=== PATIENT | female | born 1970 | race Caucasian/White ===

== ENCOUNTER 2021-06-04 22:05 | Emergency (ER) | payer OTHER ==
[2021-06-04 23:06] LABS: Absolute Lymphocytes (CBC) 2.2 K/uL (0.7-4.9); Basophils % 1.2 % (0-1.3); Hematocrit 35.9 % (36.0-45.0); Lymphocytes % 34.2 % (15.3-44.8); MPV 9.6 fL (7.6-11.3); RBC Red Blood Cell Count 4.45 M/uL (3.86-4.86)
[2021-06-05] LABS: Anisocytosis 1+; Blood Morphology Comment NOTED (NOT SEEN); Ovalocytes 1+; Platelet Estimate ADEQ; White Blood Cell Scan OK (OK)
[2021-06-05 00:03] LABS: ALT/SGPT 29 U/L (12-78); Albumin 3.8 g/dL (3.4-5.0); Alkaline Phosphatase 94 U/L (45-117); BUN Blood Urea Nitrogen 7 mg/dL (7-18); Bicarbonate 29 mmol/L (21-32); Bilirubin Direct < 0.1 mg/dL (0-0.2); Bilirubin Total 0.3 mg/dL (0.2-1.0); Glucose Level 106 mg/dL (74-106); NT PRO-BNP 12 pg/mL (<125); Protein, Total 8.2 g/dL (6.4-8.2); Sodium Level 140 mmol/L (136-145); Troponin (Emerg Dept Use Only) < 0.02 ng/mL (0.0-0.045)
[2021-06-05 00:06] LABS: AST/SGOT 38 U/L (15-37); Magnesium 2.2 mg/dL (1.8-2.4); Potassium 3.8 mmol/L (3.5-5.1)
--- NOTE | 2021-06-05 00:11 | EDPHYS ---
Physician Documentation [facility] Name: Keesha Pedroza Age: 51 yrs Sex: Female : 1970 Arrival Date: 06/04/2021 Time: 22:11 Bed 4 Private MD: ED Physician Bob Harding HPI: 06/04 23:07 This 51 yrs old Female presents to ER via Ambulatory with complaints of Chest kb Congestion, Dizziness, Vomiting. 23:07 The patient or guardian reports cough, that is intermittent, described as moderate. kb Onset: The symptoms/episode began/occurred 1 week(s) ago. Severity of symptoms: At their worst the symptoms were moderate, in the emergency department the symptoms are unchanged. Modifying factors: The symptoms are alleviated by nothing, the symptoms are aggravated by nothing. Associated signs and symptoms: Pertinent positives: chest pain. The patient has not experienced similar symptoms in the past. The patient has not recently seen a physician. Pt reports cough, congestion, fever, "ribcage pain" and chest pressure for a week. States she just got insurance so that is why she came in now. States she is waiting to get established with a dr in [place] for primary care. States she has asthma and has been out of her nebulizer solution. Also reports she has been out of levothyroxine for a while and requests that. Pt is prescribed 200mcg daily.. 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 - Social history:: Smoking status: Patient reports the use of cigarette tobacco products, smokes one-half pack cigarettes per day, Patient/guardian denies using alcohol, street drugs. ROS: 23:06 Constitutional: Negative for fever, chills, and weight loss. kb 23:06 Cardiovascular: Positive for chest pain, Negative for edema, orthopnea, palpitations, paroxysmal nocturnal dyspnea. 23:06 Respiratory: Positive for cough, Negative for dyspnea on exertion, hemoptysis, orthopnea, pleurisy, shortness of breath, sputum production, wheezing. 23:06 Abdomen/GI: Positive for vomiting. 23:06 All other systems are negative. Exam: 22:56 ECG was reviewed by the Attending Physician. kb 23:06 Constitutional: This is a well developed, well nourished patient who is awake, alert, kb and in no acute distress. Head/Face: Normocephalic, atraumatic. ENT: Moist Mucous membranes Cardiovascular: Regular rate and rhythm with a normal S1 and S2. No gallops, murmurs, or rubs. No pulse deficits. Respiratory: Respirations even and unlabored. No increased work of breathing, no retractions or nasal flaring. Abdomen/GI: Soft, non-tender. No distention Skin: Warm, dry with normal turgor. Normal color. MS/ Extremity: Pulses equal, no cyanosis. Neurovascular intact. Full, normal range of motion. Neuro: Awake and alert, GCS 15, oriented to person, place, time, and situation. Moves all extremities. Normal gait. Psych: Awake, alert, with orientation to person, place and time. Behavior, mood, and affect are within normal limits. Vital Signs: 22:41 BP 148 / 86; Pulse 66; Resp 18 S; Temp 98.1(O); Pulse Ox 97% on R/A; Weight 104.33 kg bb (R); Height 5 ft. 7 in. (170.18 cm) (R); Pain 7/10; 06/05 00:42 BP 118 / 79; Pulse 78; Resp 18 S; Temp 98.3; Pulse Ox 98% on R/A; Pain 1/10; sj1 06/04 22:41 Body Mass Index 36.02 (104.33 kg, 170.18 cm) bb MDM: 06/04 22:34 Patient medically screened. kb 23:06 Data reviewed: vital signs, nurses notes. Data interpreted: Pulse oximetry: on room air kb is 97 %. Interpretation: normal. 06/05 00:10 Counseling: I had a detailed discussion with the patient and/or guardian regarding: the kb historical points, exam findings, and any diagnostic results supporting the discharge/admit diagnosis, lab results, radiology results, the need for outpatient follow up, a family practitioner, to return to the emergency department if symptoms worsen or persist or if there are any questions or concerns that arise at home. 06/04 22:39 Order name: Basic Metabolic Panel; Complete Time: 00:21 kb 06/04 22:39 Order name: CBC with Diff; Complete Time: 00:00 kb 06/04 22:39 Order name: LFT's; Complete Time: 00:21 kb 06/04 22:39 Order name: Magnesium; Complete Time: 00:21 kb 06/04 22:39 Order name: NT PRO-BNP; Complete Time: 00:21 kb 06/04 22:39 Order name: PT-INR; Complete Time: 23:11 kb 06/04 22:39 Order name: Troponin (emerg Dept Use Only); Complete Time: 00:21 kb 06/04 22:39 Order name: XRAY Chest (1 view) kb 06/04 22:39 Order name: TSH; Complete Time: 00:21 kb 06/04 22:59 Order name: SARS-COV-2 RT PCR; Complete Time: 00:02 EDMS 06/04 23:10 Order name: CBC Smear Scan; Complete Time: 00:00 EDMS 06/05 00:13 Order name: T4 Free; Complete Time: 00:21 EDMS 06/04 22:39 Order name: EKG; Complete Time: 22:40 kb 06/04 22:39 Order name: Cardiac monitoring; Complete Time: 22:58 kb 06/04 22:39 Order name: EKG - Nurse/Tech; Complete Time: 22:58 kb 06/04 22:39 Order name: IV Saline Lock; Complete Time: 22:55 kb 06/04 22:39 Order name: Labs collected and sent; Complete Time: 22:55 kb 06/04 22:39 Order name: O2 Per Protocol; Complete Time: 22:55 kb 06/04 22:39 Order name: O2 Sat Monitoring; Complete Time: 22:55 kb EC/22 22:56 Rate is 57 beats/min. Rhythm is regular. QRS [place] is Normal. GA interval is normal at kb 194 msec. QRS interval is normal at 88 msec. QT interval is normal at 440 msec. Administered Medications: 06/05 00:40 Drug: Albuterol 2.5 mg Route: Inhalation; sj1 00:40 Drug: AtroVENT (ipratropium) Aerosol 0.5 mg Route: Inhalation; sj1 Disposition: 06:51 Co-signature as Attending Physician, Bob Harding MD. [email or web address] Disposition Summary: 06/05/21 00:10 Discharge Ordered Location: Home kb Condition: Stable kb Diagnosis - Coronavirus infection, unspecified kb - Hypothyroidism, unspecified kb Followup: kb - With: Emergency Department - When: As needed - Reason: Worsening of condition Followup: kb - With: Private Physician - When: 2 - 3 days - Reason: Recheck today's complaints, Continuance of care, Re-evaluation by your physician Discharge Instructions: - Discharge Summary Sheet kb - Hypothyroidism kb - COVID-19 kb - COVID-19 Frequently Asked Questions kb - 10 Things You Can Do to Manage Your COVID-19 Symptoms at Home - [facility] kb Forms: - Medication Reconciliation Form kb - Thank You Letter kb - Antibiotic Education kb - Prescription Opioid Use kb Prescriptions: - levothyroxine 200 mcg Oral tablet - take 1 tablet by ORAL route once daily on an empty stomach 30 minutes before kb breakfast; 20 tablet; Refills: 0, Product Selection Permitted - Albuterol Sulfate 2.5 mg /3 mL (0.083 %) Inhalation Solution for Nebulization - inhale 1 unit by NEBULIZATION route every 8 hours As needed; 1 box; Refills: 0, kb Product Selection Permitted Signatures: Dispatcher [employer] EDKacey Nuñez, PAPO RODRIGUEZP-Guillermina Todd, RN RN bb Bob Harding MD MD mh7 Maryan Garvin RN RN sj1 Corrections: (The following items were deleted from the chart) 06/04 22:59 22:40 CORONAVIRUS+LAB.BRZ ordered. EDFL EDFL
--- NOTE | 2021-06-05 00:11 | ER ---
Nurse's Notes [facility] Name: Keesha Pedroza Age: 51 yrs Sex: Female : 1970 Arrival Date: 06/04/2021 Time: 22:11 Bed 4 Private MD: Diagnosis: Coronavirus infection, unspecified;Hypothyroidism, unspecified Presentation: 06/04 22:41 Chief complaint: Patient states: she has been having a cough and congestion with bb vomiting x 1 week also has rib cage pain and chest pressure says she has not been taking her medication lately as she did not have insurance but has recently had it reinstated. Coronavirus screen: congestion, cough unrelated to allergies, Client presents with at least one sign or symptom that may indicate coronavirus-19. Standard/surgical mask placed on the client. Ebola Screen: No symptoms or risks identified at this time. Initial Sepsis Screen: Does the patient meet any 2 criteria? No. Patient's initial sepsis screen is negative. Does the patient have a suspected source of infection? No. Patient's initial sepsis screen is negative. Risk Assessment: Do you want to hurt yourself or someone else? Patient reports no desire to harm self or others. Onset of symptoms was May 2021. 22:41 Method Of Arrival: Ambulatory bb 22:41 Acuity: MARY 3 bb Triage Assessment: 22:56 General: Appears in no apparent distress. Behavior is calm, cooperative. 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 - Social history:: Smoking status: Patient reports the use of cigarette tobacco products, smokes one-half pack cigarettes per day, Patient/guardian denies using alcohol, street drugs. Screenin:55 Abuse screen: Denies threats or abuse. Nutritional screening: No deficits noted. df1 Tuberculosis screening: No symptoms or risk factors identified. Fall Risk None identified. Assessment: 22:59 Pain:. GI: Abdomen is flat. sj1 23:00 GI: Abdomen is Reports upper abdominal pain, nausea, vomiting. sj1 23:00 General: Appears in no apparent distress. Behavior is calm, cooperative, appropriate sj1 for age. Pain: Complains of pain in abdomen Quality of pain is described as sharp. Neuro: Level of Consciousness is awake, alert, obeys commands, Oriented to person, place, time, situation. Cardiovascular: No deficits noted. Rhythm is sinus rhythm. Respiratory: Reports cough that is productive. : No signs and/or symptoms were reported regarding the genitourinary system. EENT: No signs and/or symptoms were reported regarding the EENT system. Derm: No signs and/or symptoms reported regarding the dermatologic system. Musculoskeletal: Reports pain in ribs. 06/05 00:41 Reassessment: No changes from previously documented assessment. Per provider - ok to sj1 give albuterol/atrovent to pt to take home due to pt being covid +. Vital Signs: 06/04 22:41 BP 148 / 86; Pulse 66; Resp 18 S; Temp 98.1(O); Pulse Ox 97% on R/A; Weight 104.33 kg bb (R); Height 5 ft. 7 in. (170.18 cm) (R); Pain 7/10; 06/05 00:42 BP 118 / 79; Pulse 78; Resp 18 S; Temp 98.3; Pulse Ox 98% on R/A; Pain 1/10; sj1 06/04 22:41 Body Mass Index 36.02 (104.33 kg, 170.18 cm) bb ED Course: 06/04 22:11 Patient arrived in ED. cf2 22:34 Kacey Rojas FNP-C is [facility]. kb 22:34 Bob Harding MD is Attending Physician. kb 22:44 Triage completed. bb 22:44 Arm band placed on Patient placed in an exam room, on a stretcher, on pulse oximetry. bb Family accompanied patient. 22:55 XRAY Chest (1 view) Sent. df1 22:55 No provider procedures requiring assistance completed. df1 22:56 Patient has correct armband on for positive identification. Placed in gown. Bed in low df1 position. Call light in reach. Side rails up X 1. 22:58 TSH Sent. sj1 22:58 Troponin (emerg Dept Use Only) Sent. sj1 22:58 PT-INR Sent. sj1 22:58 NT PRO-BNP Sent. sj1 22:59 Magnesium Sent. sj1 22:59 LFT's Sent. sj1 22:59 CBC with Diff Sent. sj1 22:59 Basic Metabolic Panel Sent. sj1 23:44 XRAY Chest (1 view) In Process Unspecified. EDMS 06/05 00:41 IV discontinued, intact, bleeding controlled, No redness/swelling at site. sj1 Administered Medications: 00:40 Drug: Albuterol 2.5 mg Route: Inhalation; sj1 00:40 Drug: AtroVENT (ipratropium) Aerosol 0.5 mg Route: Inhalation; sj1 Outcome: 00:10 Discharge ordered by . nia 00:41 Discharged to home ambulatory. sj1 00:41 Condition: stable 00:41 Discharge instructions given to patient, Instructed on discharge instructions, follow up and referral plans. medication usage, Demonstrated understanding of instructions, follow-up care, medications, Prescriptions given X 2. 00:43 Patient left the ED. 1 Signatures: Dispatcher [employer] EDMS Kacey Rojas, TABULATING MACHINE MECHANIC-C TABULATING MACHINE MECHANIC-Guillermina Todd, RN RN bb Lynsey Wing cf2 Hope Johnson df1 Maryan Garvin, RN RN sj1 Corrections: (The following items were deleted from the chart) 06/04 22:59 22:58 CORONAVIRUS+ drawn and sent. [facility] EDMS
[2021-06-05] MEDS ORDERED: IPRATROPIUM BROM 0.5MG/2.5ML ONE (00:58)
[2021-06-05] MEDS ORDERED: ALBUTEROL 2.5 MG/3 ML NEB SOL ONE (00:58)
[2021-06-05 01:17] VITALS: BP 118/79; TEMP 98.3; O2SAT 98
--- NOTE | 2021-06-05 09:17 | RAD REPORT ---
EXAM DESCRIPTION: RAD - Chest Single View - 06/04/2021 11:44 pm CLINICAL HISTORY: COUGH COMPARISON: CHEST PA AND LAT 2 VIEW dated 10/26/2014; CHEST SINGLE VIEW dated 07/08/2014; CHEST PA AN D LAT 2 VIEW dated 10/28/2013 FINDINGS: Lines: None. Lungs: No evidence of edema or pneumonia. Calcified lung nodules. Pleural: No significant pleural effusions or pneumothorax. Cardiac: The heart size is within normal limits. Bones: No acute fractures. Other: IMPRESSION: No acute cardiopulmonary disease.
== END 2021-06-05 00:43 | disposition home or self-care (01) ==
LOC: ER 22:05
DX: U07.1 COVID-19 (principal); E03.9 Hypothyroidism, unspecified
CPT/HCPCS: 93005; 85025; 80048; 36415; 83735; 85610; 80076; 84443; 84484; 84439; 83880; 71045; 99285; U0003

== ENCOUNTER 2022-05-01 18:17 | Emergency (ER) | payer OTHER ==
--- OUTSIDE RECORDS SUMMARY | 2022-05-01 18:21 | XMS REPORT | Continuity of Care Document ---
:[address] [facility] t Address [address] [place] [address] Care Team Providers Name Role Phone Es Palma MD Primary Care Physician [phone] Es Palma MD Attending Clinician Clive Brown MD Attending Clinician DEJA GARAY Attending Clinician Unavailable ES PALMA Attending Clinician Unavailable Deja Carbajal Attending Clinician Payers Payer Name Policy Type Policy Number Effective Date Expiration Date S ource Problems Condition Condition Condition Status Onset Resolution Last Treating Co mments Source Name Details Category Date Date Treatment Clinician Date Obesity Obesity Disease Active 2020-08 Univers (BMI (BMI 2-29 ity of 30-39.9) 30-39.9) 00:00: [address] Branch Dysuria Dysuria Disease Active 2020-08 Univers 2-29 ity of 00:00: [address] Branch Screening Screening Disease Active 2020-08 Uni vers examinatio examinatio - it y of n for STD n for STD 00:00: [place] (sexually (sexually 00 Medi amado transmitte transmitte Br anch d disease) d disease) Encounter Encounter Disease Active 2020-08 Uni vers for for 2-29 ity of surveillan surveillan [place] of 00 Medical other other Branch contracept contracept sukhwinder sukhwinder Irregular Irregular Disease Active 2020-08 Uni vers menstrual menstrual 2- ity of cycle cycle 00:00: [place] 00 Medical Branch Vitamin D Vitamin D Disease Active 2020-08 Uni vers deficiency deficiency 1-06 it y of 00:00: [place] 00 Medical Branch B12 B12 Disease Active 2020-08 Univers deficiency deficiency -06 it y of (suboptima (suboptima [place] l level 00 Medical <400) <400) Branch Iron Iron Disease Active 2020-08 Univers deficiency deficiency -06 it y of anemia, anemia, 00:00: [place] unspecifie unspecifie 00 Me dical d iron d iron Branch deficiency deficiency anemia anemia type type Hyperchole Hyperchole Disease Active 2020-08 U nivers sterolemia sterolemia -06 it y of 00:00: [place] 00 Medical Branch Abnormal Abnormal Disease Active 2020-08 Unive rs liver liver 08-19 ity of function function 00:00: [place] test test 00 Medical Branch Acquired Acquired Disease Active 2020-08 Overview: Un yasmeen hypothyroi hypothyroi 05 Formattin ity of dism dism 00:00: g of this [place] 00 note Medical might be Branch different from the original. 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 No seizures since 2019 Menorrhagi Menorrhagi Disease Active 2020-08 U nivers a a 1-05 ity of 00:00: [place] 00 Medical Branch Tobacco Tobacco Disease Active 2020-08 Univers dependence dependence -05 it y of 00:00: [place] 00 Medical Branch COVID-19 COVID-19 Disease Active 2020-08 Unive rs 0-01 ity of 00:00: [place] 00 Medical [place] Allergies, Adverse Reactions, Alerts Allergy Allergy Status Severity Reaction(s) Onset Inactive Treating Comm ents Source Name Type Date Date Clinician NO KNOWN Drug Active Univers ALLERGIE Class ity of S [facility] Social History Social Habit Start Date Stop Date Quantity Comments Source Exposure to Not sure [facility] SARS-CoV-2 [place] [facility] (event) Branch Alcohol intake 2021-08-11 2021-08-11 [facility] 00:00:00 (finding) [facility] Tobacco use and 2021-06-18 2021-06-18 Never used Universit y of exposure 00:00:00 00:00:00 [facility] [birth year] Universit y of 00:00:00 00:00:00 [facility] Smoking Status Start Date Stop Date Source Current every day smoker 2021-06-18 00:00:00 Uni versity of [facility] Medications Ordered Filled Start Stop Current Ordering Indication Dosage Frequency Signature Comments Components Source Medication Medication Date Date Medication? Clinician (SIG) Name Name VENTOLIN Yes [id number] INHALE 2 Univers HFA 90 4-07 [id number] PUFFS BY ity of mcg/actuati 00:00: MOUTH [place] on inhaler 00 EVERY 6 Medica l HOURS Branch NEEDED FOR WHEEZING OR SHORTNESS OF BREATHE. VENTOLIN Yes [id number] INHALE 2 Univers HFA 90 4-07 [id number] PUFFS BY ity of mcg/actuati 00:00: MOUTH [place] on inhaler 00 EVERY 6 Medica l HOURS Branch NEEDED FOR WHEEZING OR SHORTNESS OF BREATHE. VENTOLIN Yes [id number] INHALE 2 Univers HFA 90 4-07 [id number] PUFFS BY ity of mcg/actuati 00:00: MOUTH [place] on inhaler 00 EVERY 6 Medica l HOURS Branch NEEDED FOR WHEEZING OR SHORTNESS OF BREATHE. VENTOLIN Yes [id number] INHALE 2 Univers HFA 90 4-07 [id number] PUFFS BY ity of mcg/actuati 00:00: MOUTH [place] on inhaler 00 EVERY 6 Medica l HOURS Branch NEEDED FOR WHEEZING OR SHORTNESS OF BREATHE. ALBUTEROL Yes [id number] USE 3 ML Univers 2.5 mg /3 4-05 [id number] VIA ity of mL (0.083 00:00: NEBULIZER [place] %) 00 FOUR TIMES Medical nebulizer DAILY Branch solution ALBUTEROL Yes [id number] USE 3 ML Univers 2.5 mg /3 4-05 [id number] VIA ity of mL (0.083 00:00: NEBULIZER [place] %) 00 FOUR TIMES Medical nebulizer DAILY Branch solution ALBUTEROL Yes [id number] USE 3 ML Univers 2.5 mg /3 - [id number] VIA ity of mL (0.083 00:00: NEBULIZER [place] %) 00 FOUR TIMES Medical nebulizer DAILY Branch solution ALBUTEROL Yes [id number] USE 3 ML Univers 2.5 mg /3 11-16 [id number] VIA ity of mL (0.083 00:00: NEBULIZER [place] %) 00 FOUR TIMES Medical nebulizer DAILY Branch solution ALBUTEROL Yes [id number] USE 3 ML Univers 2.5 mg /3 11-16 [id number] VIA ity of mL (0.083 00:00: NEBULIZER [place] %) 00 FOUR TIMES Medical nebulizer DAILY Branch solution VENTOLIN Yes [id number] INHALE 2 Univers HFA 90 - [id number] PUFFS BY ity of mcg/actuati 00:00: MOUTH [place] on inhaler 00 EVERY 6 Medica l HOURS Branch NEEDED FOR WHEEZING OR SHORTNESS OF BREATHE. VENTOLIN Yes [id number] INHALE 2 Univers HFA 90 - [id number] PUFFS BY ity of mcg/actuati 00:00: MOUTH [place] on inhaler 00 EVERY 6 Medica l HOURS Branch NEEDED FOR WHEEZING OR SHORTNESS OF BREATHE. VENTOLIN 2021- No [id number] INHALE 2 Univers HFA 90 - 04-07 [id number] PUFFS BY ity of mcg/actuati 00:00: 00:00 M[place]TH [place] inhaler 00 :00 EVERY 6 Medica l HOURS Branch NEEDED FOR WHEEZING OR SHORTNESS OF BREATHE. ALBUTEROL Yes [id number] USE 3 ML Univers 2.5 mg /3 08-26 [id number] VIA ity of mL (0.083 00:00: NEBULIZER [place] %) 00 FOUR TIMES Medical nebulizer DAILY Branch solution ALBUTEROL Yes [id number] USE 3 ML Univers 2.5 mg /3 08-26 [id number] VIA ity of mL (0.083 00:00: NEBULIZER [place] %) 00 FOUR TIMES Medical nebulizer DAILY Branch solution ALBUTEROL 2021- No [id number] USE 3 ML Univers 2.5 mg /3 08-26-05 [id number] VIA ity of mL (0.083 00:00: 00:00 NE[place]ULIZER [place] 00 :00 FOUR TIMES Medical nebulizer DAILY Branch solution Cholecalcif 2020-08 Yes [id number] 1999U Take 1 Univers cassie, 1-06 capsule by ity of Vitamin D3, 00:00: mouth [place] (D3-1999) 00 daily. Medical 50 mcg Take with Branch (2,000 food. unit) capsule vitamin 2020-08 Yes [id number] 500ug Take 1 Un yasmeen B-12 1-06 tablet by ity of (VITAMIN 00:00: mouth [place] B-12) 500 00 daily. Medical mcg tablet Branch rosuvastati 2020-08 Yes [id number] 10mg Take 1 Univ ers n 10 mg 1-06 tablet by ity of tablet 00:00: mouth at [place] 00 bedtime. Medical Indication Branch s: high cholestero l Ferrous 2020-08 Yes 713 1{tbl} Take 1 Univer s Fumarate 1-06 tablet by ity of 324 mg (106 00:00: mouth [place] mg iron) 00 daily. Medical Tab Take with Branch a source of vitamin C. Indication s: anemia from inadequate iron Cholecalcif 2020-08 Yes [id number] 1999U Take 1 Univers cassie, 1-06 capsule by ity of Vitamin D3, 00:00: mouth [place] (D3-1999) 00 daily. Medical 50 mcg Take with Branch (2,000 food. unit) capsule vitamin 2020-08 Yes [id number] 500ug Take 1 Un yasmeen B-12 1-06 tablet by ity of (VITAMIN 00:00: mouth [place] B-12) 500 00 daily. Medical mcg tablet Branch rosuvastati 2020-08 Yes 626 10mg Take 1 Univ ers n 10 mg 1-06 tablet by ity of tablet 00:00: mouth at [place] 00 bedtime. Medical Indication Branch s: high cholestero l Ferrous 2020-08 Yes 713 1{tbl} Take 1 Univer s Fumarate 1-06 tablet by ity of 324 mg (106 00:00: mouth [place] mg iron) 00 daily. Medical Tab Take with Branch a source of vitamin C. Indication s: anemia from inadequate iron Cholecalcif 2020-08 Yes [id number] 1999U Take 1 Univers cassie, 1-06 capsule by ity of Vitamin D3, 00:00: mouth [place] (D3-1999) 00 daily. Medical 50 mcg Take with Branch (2,000 food. unit) capsule vitamin 2020-08 Yes [id number] 500ug Take 1 Un yasmeen B-12 1-06 tablet by ity of (VITAMIN 00:00: mouth [place] B-12) 500 00 daily. Medical mcg tablet Branch rosuvastati 2020-08 Yes 626 10mg Take 1 Univ ers n 10 mg 1-06 tablet by ity of tablet 00:00: mouth at [place] 00 bedtime. Medical Indication Branch s: high cholestero l Ferrous 2020-08 Yes 713 1{tbl} Take 1 Univer s Fumarate 1-06 tablet by ity of 324 mg (106 00:00: mouth [place] mg iron) 00 daily. Medical Tab Take with Branch a source of vitamin C. Indication s: anemia from inadequate iron Cholecalcif 2020-08 Yes [id number] 1999U Take 1 Univers cassie, 1-06 capsule by ity of Vitamin D3, 00:00: mouth [place] (D3-1999) 00 daily. Medical 50 mcg Take with Branch (2,000 food. unit) capsule vitamin 2020-08 Yes [id number] 500ug Take 1 Un yasmeen B-12 1-06 tablet by ity of (VITAMIN 00:00: mouth [place] B-12) 500 00 daily. Medical mcg tablet Branch rosuvastati 2020-08 Yes 626 10mg Take 1 Univ ers n 10 mg 1-06 tablet by ity of tablet 00:00: mouth at [place] 00 bedtime. Medical Indication Branch s: high cholestero l Ferrous 2020-08 Yes 713 1{tbl} Take 1 Univer s Fumarate 1-06 tablet by ity of 324 mg (106 00:00: mouth [place] mg iron) 00 daily. Medical Tab Take with Branch a source of vitamin C. Indication s: anemia from inadequate iron Cholecalcif 2020-08 Yes [id number] 2000U Take 1 Univers cassie, 1-06 capsule by ity of Vitamin D3, 00:00: mouth [place] (D3-1999) 00 daily. Medical 50 mcg Take with Branch (2,000 food. unit) capsule vitamin 2020-08 Yes [id number] 500ug Take 1 Un yasmeen B-12 1-06 tablet by ity of (VITAMIN 00:00: mouth [place] B-12) 500 00 daily. Medical mcg tablet Branch rosuvastati 2020-08 Yes 626 10mg Take 1 Univ ers n 10 mg 1-06 tablet by ity of tablet 00:00: mouth at [place] 00 bedtime. Medical Indication Branch s: high cholestero l Ferrous 2020-08 Yes 713 1{tbl} Take 1 Univer s Fumarate 1-06 tablet by ity of 324 mg (106 00:00: mouth [place] mg iron) 00 daily. Medical Tab Take with Branch a source of vitamin C. Indication s: anemia from inadequate iron Cholecalcif 2020-08 Yes [id number] 1999U Take 1 Univers cassie, 1-06 capsule by ity of Vitamin D3, 00:00: mouth [place] (D3-1999) 00 daily. Medical 50 mcg Take with Branch (2,000 food. unit) capsule vitamin 2020-08 Yes [id number] 500ug Take 1 Un yasmeen B-12 1-06 tablet by ity of (VITAMIN 00:00: mouth [place] B-12) 500 00 daily. Medical mcg tablet Branch rosuvastati 2020-08 Yes 626 10mg Take 1 Univ ers n 10 mg 1-06 tablet by ity of tablet 00:00: mouth at [place] 00 bedtime. Medical Indication Branch s: high cholestero l Ferrous 2020-08 Yes 713 1{tbl} Take 1 Univer s Fumarate 1-06 tablet by ity of 324 mg (106 00:00: mouth [place] mg iron) 00 daily. Medical Tab Take with Branch a source of vitamin C. Indication s: anemia from inadequate iron Cholecalcif 2020-08 Yes [id number] 1999U Take 1 Univers cassie, 1-06 capsule by ity of Vitamin D3, 00:00: mouth [place] (D3-2000) 00 daily. Medical 50 mcg Take with Branch (2,000 food. unit) capsule vitamin 2020-08 Yes [id number] 500ug Take 1 Un yasmeen B-12 1-06 tablet by ity of (VITAMIN 00:00: mouth [place] B-12) 500 00 daily. Medical mcg tablet Branch rosuvastati 2020-08 Yes 626 10mg Take 1 Univ ers n 10 mg 1-06 tablet by ity of tablet 00:00: mouth at [place] 00 bedtime. Medical Indication Branch s: high cholestero l Ferrous 2020-08 Yes 713 1{tbl} Take 1 Univer s Fumarate 1-06 tablet by ity of 324 mg (106 00:00: mouth [place] mg iron) 00 daily. Medical Tab Take with Branch a source of vitamin C. Indication s: anemia from inadequate iron Cholecalcif 2020-08 Yes [id number] 1999U Take 1 Univers cassie, 1-06 capsule by ity of Vitamin D3, 00:00: mouth [place] (D3-2000) 00 daily. Medical 50 mcg Take with Branch (2,000 food. unit) capsule vitamin 2020-08 Yes [id number] 500ug Take 1 Un yasmeen B-12 1-06 tablet by ity of (VITAMIN 00:00: mouth [place] B-12) 500 00 daily. Medical mcg tablet Branch rosuvastati 2020-08 Yes 626 10mg Take 1 Univ ers n 10 mg 1-06 tablet by ity of tablet 00:00: mouth at [place] 00 bedtime. Medical Indication Branch s: high cholestero l Ferrous 2020-08 Yes 713 1{tbl} Take 1 Univer s Fumarate 1-06 tablet by ity of 324 mg (106 00:00: mouth [place] mg iron) 00 daily. Medical Tab Take with Branch a source of vitamin C. Indication s: anemia from inadequate iron levothyroxi 2020-08 Yes [id number] 200ug Take 1 Univers ne 200 mcg 1-05 tablet by ity of tablet 00:00: mouth [place] 00 every Medical morning. Branch albuterol 2020-08 Yes [id number] 2{puff} Inhale 2 Univers 90 1-05 [id number] Puffs ity of mcg/actuati 00:00: every 6 [place] on inhaler 00 (six) Medical hours as Branch needed for Wheezing or Shortness of Breath. albuterol 2020-08 Yes [id number] 2.5mg Inhale 3 Univers 2.5 mg /3 1-05 [id number] mL 4 ity of mL (0.083 00:00: (four) [place] %) 00 times Medical nebulizer daily. Branch solution levothyroxi 2020-08 Yes [id number] 200ug Take 1 Univers ne 200 mcg 1-05 tablet by ity of tablet 00:00: mouth [place] 00 every Medical morning. Branch albuterol 2020-08 Yes [id number] 2{puff} Inhale 2 Univers 90 1-05 [id number] Puffs ity of mcg/actuati 00:00: every 6 [place] on inhaler 00 (six) Medical hours as Branch needed for Wheezing or Shortness of Breath. levothyroxi 2020-08 Yes [id number] 200ug Take 1 Univers ne 200 mcg 1-05 tablet by ity of tablet 00:00: mouth [place] 00 every Medical morning. Branch levothyroxi 2020-08 Yes [id number] 200ug Take 1 Univers ne 200 mcg 1-05 tablet by ity of tablet 00:00: mouth [place] 00 every Medical morning. Branch levothyroxi 2020-08 Yes [id number] 200ug Take 1 Univers ne 200 mcg 1-05 tablet by ity of tablet 00:00: mouth [place] 00 every Medical morning. Branch levothyroxi 2020-08 Yes [id number] 200ug Take 1 Univers ne 200 mcg 1-05 tablet by ity of tablet 00:00: mouth [place] 00 every Medical morning. Branch levothyroxi 2020-08 Yes [id number] 200ug Take 1 Univers ne 200 mcg 1-05 tablet by ity of tablet 00:00: mouth [place] 00 every Medical morning. Branch levothyroxi 2020-08 Yes [id number] 200ug Take 1 Univers ne 200 mcg 1-05 tablet by ity of tablet 00:00: mouth [place] 00 every Medical morning. Branch albuterol 2020-08- No [id number] 2{puff} Inhale 2 Univers 90 08-18 [id number] Puffs ity of mcg/actuati 00:00: 00:00 every 6 [place] inhaler 00 :00 (six) Medical hours as Branch needed for Wheezing or Shortness of Breath. albuterol 2020-08- No [id number] 2.5mg Inhale 3 Univers 2.5 mg /3 08-18 [id number] mL 4 ity of mL (0.083 00:00: 00:00 (four) [place] %) 00 :00 times Medical nebulizer daily. Branch solution Vital Signs Vital Name Observation Time Observation Value Comments Source Systolic blood 2021-08-11 21:09:00 135 mm[Hg] Univer sity of pressure [place] [facility] Diastolic blood 2021-08-11 21:09:00 74 mm[Hg] Unive rsity of pressure [facility] Heart rate 2021-08-11 21:09:00 85 /min [facility] Body temperature 2021-08-11 21:09:00 36.22 [place] [facility] 2021-08-11 21:09:00 20 /min [facility] Body height 2021-08-11 21:09:00 170.2 cm [facility] Body weight 2021-08-11 21:09:00 103.692 kg [facility] BMI 2021-08-11 21:09:00 35.80 kg/m2 [facility] Procedures Procedure Date / Time Performed Performing Clinician Sourc e POCT URINALYSIS W/O 2021-08-11 00:00:00 Deja Garay [facility] Encounters Start End Encounter Admission Attending Care Care Encounter Source Date/Time Date/Time Type Type Clinicians Facility Department ID 2021-12-30 2021-12-30 [email or web address] [id number] [id number] Univers 00:00:00 00:00:00 Wondiful A HEALTH 350.1.13.10 ity of [place] 4.2.7.2.686 [place] STEFAN?BLEA [id number] [address] MEDICAL OFFICE [facility] 2021-12-21 2021-12-21 [email or web address] [id number] [id number] Univers 00:00:00 00:00:00 Wondiful A HEALTH 350.1.13.10 ity of [place] 4.2.7.2.686 [place] STEFAN?BLEA [id number] [address] MEDICAL OFFICE [facility] 2021-11-18 2021-11-18 [email or web address] [id number] [id number] Univers 00:00:00 00:00:00 Clive HEALTH [id number] it y of [place] 4.2.7.2.686 [place] STEFAN?BLEA [id number] [address] MEDICAL OFFICE [facility] 2021-11-18 2021-11-18 January [email or web address] [id number] Univers 00:00:00 00:00:00 Wondiful A HEALTH [id number] ity of [place] 4.2.7.2.686 [place] STEFAN?BLEA [id number] [address] 2021-11-15 2021-11-15 January [email or web address] [id number] [id number] Univers 00:00:00 00:00:00 Wondiful A HEALTH 350.1.13.10 ity of [place] 4.2.7.2.686 [place] STEFAN?BLEA [id number] [address] 2021-10-27 2021-10-27 Outpatient Harish GARAY [facility] [id number] Univers 13:40:00 13:40:00 ROSHUNDA [id number] ity o [facility] 2021-10-27 2021-10-27 [email or web address] RAD [id number] Univers 13:40:00 13:40:00 ROSHUNDA ity o [facility] 2021-10-08 2021-10-08 Outpatient Harish PALMA [facility] [id number] Univers 10:00:00 10:00:00 WONDIFUL [id number] ity o f [facility] 2021-10-08 2021-10-08 Outpatient Harish PALMA [facility] [id number] Univers 10:00:00 10:00:00 WONDIFUL ity o f [facility] 2021-10-01 2021-10-01 Outpatient Harish GARAY [facility] [id number] Univers 13:40:00 13:40:00 ROSHUNDA [id number] ity o [facility] 2021-10-01 2021-10-01 Outpatient Harish GARAY [facility] [id number] Univers 00:00:00 00:00:00 ROSHUNDA ity o f [facility] 2021-09-10 2021-09-10 Outpatient Harish PALMA [facility] [id number] Univers 08:45:00 08:45:00 WONDIFUL ity o norman [facility] 2021-09-08 2021-09-08 [facility] [id number] Univers 10:40:00 10:40:00 DEJA [id number] ity o norman [facility] 2021-09-08 2021-09-08 Refangela [email or web address] [id number] [id number] Univers 00:00:00 00:00:00 Wondiful A HEALTH 350.1.13.10 ity of [place] 4.2.7.2.686 [place] as STEFAN?BLEA [id number] [address] OFFICE [facility] 2021-08-24 2021-08-24 Refangela [email or web address] [id number] [id number] Univers 00:00:00 00:00:00 Wondiful A HEALTH 350.1.13.10 ity of [place] 4.2.7.2.686 [place] as STEFAN?BLEA [id number] [address] OFFICE [facility] 2021-08-11 2021-08-11 Office [email or web address] [id number] [id number] Univers 15:15:00 15:57:54 Visit Deja Harish [employer]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 ity of [facility] 4.2.7.2.686 [place] as MATERNAL [id number] [facility] ical & CHILD [address] [place] [address] 2021-08-11 2021-08-11 Outpatient R GARAY [facility] [id number] Univers 15:15:00 15:57:54 DEJA itkye o [facility] Results Test Description Test Time Test Comments Results Result Comments Source TSH, THIRD GENERATION 2022-01-25 09:45:16 Test Item Value Reference Range Interpretation Comme nts TSH, THIRD GENERATION (test 5.950 UIU/ML 0.400-4.100 H UNLESS OTHERWISE INDICATED, code = 2821) ALL TESTING PER [facility]MED [facility], I [place]. [address] [place] [address] 7477 SPECIFICATION WRITER: Pete JACKSON [id number] [place] [id number] LIPID [id number] 06:03:19 Test Item Value Reference Range Interpretation Comments CHOLESTEROL (test 256 MG/DL <200 H code = 2210) TRIGLYCERIDES (test 223 MG/DL <150 H code = 2232) HDL CHOLESTEROL (test 37 MG/DL >39 L code = 2220) CALC LDL CHOL (test 181 MG/DL <100 H NOTE: C ALCULATED LDL code = 2237) IS BASED ON SVETLANA-GREER METHOD WHICHINCLUDES ADJUSTABLE TRIGLYCERIDE:VL DL CHOLESTEROL RAT IO.THIS FACTOR VARIES B Y MEASURED TRIGLY CERIDE AND NON-HDLCHOL ESTEROL CONCENTRATIONS WITH INCREASED CALCU LATED LDL SEENIN HIGH ER TRIGLYCERIDE OR LOWER NON-HDL SPECIME NS. FOR MOREINFORMATION , SEE CLIENT ANNOUNCE MENT AT [email or web address] [email or web address] RATIO LDL/HDL 4.89 RATIO <3.22 H (test code = 2238) COMPREHENSIVE METABOLIC [id number] 06:03:19 Test Item Value Reference Range Interpretation Comments GLUCOSE (test code = 105 MG/DL 70-99 H 2216) BUN (test code = 8 MG/DL 6-20 2207) CREATININE (test 0.66 MG/DL 0.60-1.30 code = 2214) eGFR (2020 CKD-EPI) 107 >60 (test code = 99543) ML/MIN/1.73 CALC BUN/CREAT (test 12 RATIO 6-28 code = 2235) SODIUM (test code = 139 MEQ/L 549-823 1973) POTASSIUM (test code 4.6 MEQ/L 3.5-5.4 = 2228) CHLORIDE (test code 102 MEQ/L 95-107 = 2215) CARBON DIOXIDE (test 26 MEQ/L 19-31 code = 2206) CALCIUM (test code = 9.8 MG/DL 8.5-10.5 2208) PROTEIN, TOTAL (test 7.7 G/DL 6.1-8.3 code = 2229) ALBUMIN (test code = 4.5 G/DL 3.5-5.2 2200) CALC GLOBULIN (test 3.2 G/DL 1.9-3.7 code = 2240) CALC A/G RATIO (test 1.4 RATIO 1.0-2.6 code = 2234) BILIRUBIN, TOTAL 0.3 MG/DL See_Comment [Automated message] (test code = 2206) The syste m which generated this result transmit lalo reference range : <=1.2. The refe rence range was not u sed to interpret th is result as normal/abnormal . ALKALINE PHOSPHATASE 102 U/L 40-128 (test code = 2203) AST (test code = 44 U/L 9-40 H 8) ALT (test code = 27 U/L 5-40 2218) HEMOGLOBIN [id number] 06:03:15 Test Item Value Reference Range Interpretation Comments HEMOGLOBIN A1c (test code = 92279) 6.0 % 4.2-5.6 H CBC W/AUTO DIFF WITH [id number] 05:24:42 Test Item Value Reference Range Interpretation Comments WBC (test code = 6.6 K/UL 3.5-11.0 1001) RBC (test code = 4.78 M/UL 3.80-5.40 1002) HEMOGLOBIN (test code 13.1 G/DL 11.5-15.5 = 1003) HEMATOCRIT (test code 40.8 % 34.0-45.0 = 1004) MCV (test code = 85.4 fL 80.0-99.0 1005) MCH (test code = 27.4 PG 25.0-33.0 1006) MCHC (test code = 32.1 G/DL 31.0-36.0 1007) RDW (test code = 15.2 % 11.5-15.0 H 1038) NEUTROPHILS (test 60.7 % code = 1008) LYMPHOCYTES (test 27.6 % code = 1010) MONOCYTES (test code 6.7 % = 1011) EOSINOPHILS (test 3.4 % code = 1012) BASOPHILS (test code 1.4 % = 1013) IMMATURE GRANULOCYTES 0.2 % (test code = 1036) NUCLEATED RBCS (test 0.0 /100 WBC'S See_Comment [Aut omated code = 1065) message] The sy stem which generated this result transmitted reference range : 0.0. The refere nce range was not u sed to interpret th is result as normal/abnormal . PLATELET COUNT (test 267 K/UL 130-400 code = 1015) ABSOLUTE NEUTROPHILS 3.98 K/UL 1.50-7.50 (test code = 1066) ABSOLUTE LYMPHOCYTES 1.81 K/UL 1.00-4.00 (test code = 1067) ABSOLUTE MONOCYTES 0.44 K/UL 0.20-1.00 (test code = 1068) ABSOLUTE EOSINOPHILS 0.22 K/UL 0.00-0.50 (test code = 1040) ABSOLUTE BASOPHILS 0.09 K/UL 0.00-0.20 (test code = 1069) ABS IMMATURE 0.01 K/UL 0.00-0.10 GRANULOCYTES (test code = 1020) ABS NUCLEATED RBCS 0.00 K/UL 0.00-0.11 (test code = 43973) POCT URINALYSIS W/O SPECIFIC [id number] 21:15:00 Test Item Value Reference Range Interpretation Comments POCT PH U (test code = 3254) 7 mg/dl 5-8 POCT U LEUK EST (test code = neg Negative - Negative 3263) POCT U NIT (test code = 3262) neg Negative - Negative POCT U PROT (test code = 3259) neg Negative - Negative POCT U GLU (test code = 3256) normal Negative - Negative POCT U KETONE (test code = 3258) neg Negative - Negative POCT U BLD (test code = 3257) neg Negative - Negative [facility]
[2022-05-01] MEDS ORDERED: IPRATROPIUM BROM 0.5MG/2.5ML ONE (18:54)
[2022-05-01] MEDS ORDERED: METHYLPREDNISOLONE 125 MG INJ ONE (18:54)
[2022-05-01] MEDS ORDERED: ALBUTEROL 2.5 MG/3 ML NEB SOL ONE (18:54)
--- NOTE | 2022-05-01 19:24 | RAD REPORT ---
EXAM DESCRIPTION: RAD - Chest Single View - 05/01/2022 7:14 pm CLINICAL HISTORY: COUGH, shortness of breath, painful cough COMPARISON: Portable 06/04/2021 TECHNIQUE: AP portable chest image was obtained 05/01/2022 7:14 pm . FINDINGS: Lungs are clear. Small granulomas are present. Heart and vasculature are normal. No measur able pleural effusion and no pneumothorax. No acute bony abnormality seen. No acute aortic findings s uspected. IMPRESSION: No acute cardiopulmonary process. No significant change from comparison study.
--- NOTE | 2022-05-01 20:00 | ER ---
Nurse's Notes [facility] Name: Keesha Pedroza Age: 52 yrs Sex: Female : 1970 Arrival Date: 05/01/2022 Time: 18:20 Bed 17 Private MD: Diagnosis: COPD/ Chronic obstructive pulmonary disease, unspecified Presentation: 05/01 18:22 Chief complaint: Headache, sinus pressure, cough. shortness of breath, and pain with hb cough since yesterday. Denies fever. Hx of COPD. Coronavirus screen: At this time, the client does not indicate any symptoms associated with coronavirus-19. Ebola Screen: No symptoms or risks identified at this time. Initial Sepsis Screen: Does the patient meet any 2 criteria? No. Patient's initial sepsis screen is negative. Does the patient have a suspected source of infection? No. Patient's initial sepsis screen is negative. Risk Assessment: Do you want to hurt yourself or someone else? Patient reports no desire to harm self or others. Onset of symptoms was April 30, 2022. 18:22 Method Of Arrival: Ambulatory hb 18:22 Acuity: MARY 3 hb Historical: - Allergies: 18:24 No Known Drug Allergies; hb - Home Meds: 18:24 rosuvastatin 10 mg oral tab 1 tab once daily [Active]; levothyroxine 200 mcg cap 1 cap hb once daily [Active]; - PMHx: 18:24 Asthma; Anemia; Bronchitis; Headaches; Hypothyroidism; COPD; Seizures; hb - Immunization history:: Adult Immunizations unknown. - Social history:: Smoking status: unknown. Screenin:53 Abuse screen: Denies threats or abuse. Nutritional screening: No deficits noted. em6 Tuberculosis screening: No symptoms or risk factors identified. Fall Risk Mental Status- Oriented to own ability (0 pts). Total Sanchez Fall Scale indicates No Risk (0-24 pts). Assessment: 18:52 General: Appears in no apparent distress. comfortable, Behavior is calm, cooperative. em6 Pain: Complains of pain in head Pain does not radiate. Quality of pain is described as aching. Neuro: Sánchez Agitation-Sedation Scale (RASS): 0 - Alert and Calm Level of Consciousness is awake, alert, obeys commands, Oriented to person, place, time, situation. Cardiovascular: Heart tones present Patient's skin is warm and dry. Respiratory: Reports shortness of breath cough that is non-productive, Airway is patent Respiratory effort is even, unlabored, Respiratory pattern is regular, symmetrical, Breath sounds are clear bilaterally. GI: No signs and/or symptoms were reported involving the gastrointestinal system. : No signs and/or symptoms were reported regarding the genitourinary system. EENT: No signs and/or symptoms were reported regarding the EENT system. Derm: No signs and/or symptoms reported regarding the dermatologic system. Musculoskeletal: Circulation, motion, and sensation intact. Range of motion: intact in all extremities. Vital Signs: 18:22 BP 119 / 76; Pulse 70; Resp 20; Temp 97.5(TE); Pulse Ox 94% on R/A; Weight 111.13 kg; hb Height 5 ft. 7 in. (170.18 cm); Pain 8/10; 20:11 BP 143 / 70; Pulse 74; Resp 17; Pulse Ox 98% on R/A; ja4 18:22 Body Mass Index 38.37 (111.13 kg, 170.18 cm) hb ED Course: 18:20 Patient arrived in ED. am2 18:23 Kacey Rojas FNP-C is [facility]. kb 18:23 Nitin Ludwig DO is Attending Physician. kb 18:24 Triage completed. hb 18:25 Arm band placed on. hb 18:42 Marcell Tovar, RN is Primary Nurse. jd3 18:54 Patient has correct armband on for positive identification. Bed in low position. Call em6 light in reach. Pulse ox on. NIBP on. 19:05 Flu Sent. em6 20:07 RAD In Process Unspecified. EDMS Administered Medications: 18:52 Drug: SOLU-Medrol (methylPREDNISolone sodium succinate) 125 mg Route: IM; Site: right em6 deltoid; 19:05 Drug: Albuterol 2.5 mg Route: Inhalation; em6 19:05 Drug: AtroVENT (ipratropium) Aerosol 0.5 mg Route: Inhalation; em6 Medication: 18:54 VIS not applicable for this client. em6 Outcome: 19:59 Discharge ordered by . kb 20:11 Discharged to home ambulatory. ja4 20:11 Condition: stable 20:11 Discharge instructions given to patient, Instructed on discharge instructions, follow up and referral plans. medication usage, Demonstrated understanding of instructions, follow-up care, medications, Prescriptions given X 1. 20:14 Patient left the ED. ja4 Signatures: Dispatcher [employer] EDKacey Nuñez, HEAVY EQUIPMENT SERVICE TECHNICIAN-C HEAVY EQUIPMENT SERVICE TECHNICIAN-CkVikki Murphy, RN RN Stearns, Maria Teresa am2 Marcell Tovar RN RN jIvette Sousa RN RN em6 Abhijeet Still RN RN ja4 Corrections: (The following items were deleted from the chart) 19:18 18:52 Pain: Denies pain. em6 em6 19:18 18:52 Respiratory: Airway is patent Respiratory effort is even, unlabored, Respiratory em6 pattern is regular, symmetrical, Breath sounds are clear bilaterally. em6 19:18 18:52 Musculoskeletal: Circulation, motion, and sensation intact. Range of motion: em6 em6
--- NOTE | 2022-05-01 20:00 | EDPHYS ---
Physician Documentation [facility] Name: Keesha Pedroza Age: 52 yrs Sex: Female : 1970 Arrival Date: 05/01/2022 Time: 18:20 Bed 17 Private MD: ED Physician Nitin Ludwig HPI: 05/01 19:58 This 52 yrs old Female presents to ER via Ambulatory with complaints of Breathing kb Difficulty, Allergic Reaction, Headache. 19:58 The patient or guardian reports cough, that is intermittent, described as mild, kb difficulty breathing. Onset: The symptoms/episode began/occurred yesterday. Severity of symptoms: At their worst the symptoms were moderate, in the emergency department the symptoms are unchanged. Modifying factors: The symptoms are alleviated by nothing, the symptoms are aggravated by nothing. Associated signs and symptoms: Pertinent positives: rhinorrhea. The patient has experienced similar episodes in the past. The patient has not recently seen a physician. Pt reports cough, congestion, runny nose, sneezing, shortness of breath since yesterday. . Historical: - Allergies: 18:24 No Known Drug Allergies; hb - Home Meds: 18:24 rosuvastatin 10 mg oral tab 1 tab once daily [Active]; levothyroxine 200 mcg cap 1 cap hb once daily [Active]; - PMHx: 18:24 Asthma; Anemia; Bronchitis; Headaches; Hypothyroidism; COPD; Seizures; hb - Immunization history:: Adult Immunizations unknown. - Social history:: Smoking status: unknown. ROS: 19:57 Constitutional: Negative for fever, chills, and weight loss. kb 19:57 ENT: Positive for rhinorrhea, sinus congestion. 19:57 Respiratory: Positive for cough, shortness of breath, Negative for dyspnea on exertion, hemoptysis, orthopnea, pleurisy, sputum production, wheezing. 19:57 All other systems are negative. Exam: 19:57 Constitutional: This is a well developed, well nourished patient who is awake, alert, kb and in no acute distress. Head/Face: Normocephalic, atraumatic. ENT: Moist Mucous membranes Cardiovascular: Regular rate and rhythm with a normal S1 and S2. No gallops, murmurs, or rubs. No pulse deficits. Respiratory: Respirations even and unlabored. No increased work of breathing. Talking in full sentences Abdomen/GI: Soft, non-tender. No distention Skin: Warm, dry with normal turgor. Normal color. MS/ Extremity: Pulses equal, no cyanosis. Neurovascular intact. Full, normal range of motion. Neuro: Awake and alert, GCS 15, oriented to person, place, time, and situation. Moves all extremities. Normal gait. Psych: Awake, alert, with orientation to person, place and time. Behavior, mood, and affect are within normal limits. Vital Signs: 18:22 BP 119 / 76; Pulse 70; Resp 20; Temp 97.5(TE); Pulse Ox 94% on R/A; Weight 111.13 kg; hb Height 5 ft. 7 in. (170.18 cm); Pain 8/10; 20:11 BP 143 / 70; Pulse 74; Resp 17; Pulse Ox 98% on R/A; ja4 18:22 Body Mass Index 38.37 (111.13 kg, 170.18 cm) hb MDM: 18:26 Patient medically screened. kb 19:58 Data reviewed: vital signs, nurses notes. Data interpreted: Pulse oximetry: on room air kb is 96 %. Interpretation: normal. Counseling: I had a detailed discussion with the patient and/or guardian regarding: the historical points, exam findings, and any diagnostic results supporting the discharge/admit diagnosis, lab results, radiology results, the need for outpatient follow up, a family practitioner, to return to the emergency department if symptoms worsen or persist or if there are any questions or concerns that arise at home. 05/01 18:36 Order name: Flu 05/01 18:36 Order name: COVID-19 SARS RT PCR (Document "Date of Onset" if Symptomatic) 05/01 18:36 Order name: Chest Single View XRAY 05/01 19:26 Order name: RAD EDMD 05/01 19:38 Order name: Influenza Screen (A EDMD 05/01 19:39 Order name: SARS-COV-2 RT PCR EDMS Administered Medications: 18:52 Drug: SOLU-Medrol (methylPREDNISolone sodium succinate) 125 mg Route: IM; Site: right em6 deltoid; 19:05 Drug: Albuterol 2.5 mg Route: Inhalation; em6 19:05 Drug: AtroVENT (ipratropium) Aerosol 0.5 mg Route: Inhalation; em6 Disposition Summary: 05/01/22 19:59 Discharge Ordered Location: Home kb Condition: Stable kb Diagnosis - COPD/ Chronic obstructive pulmonary disease, unspecified kb Followup: kb - With: Emergency Department - When: As needed - Reason: Worsening of condition Followup: kb - With: Private Physician - When: 2 - 3 days - Reason: Recheck today's complaints, Continuance of care, Re-evaluation by your physician Discharge Instructions: - Discharge Summary Sheet kb - Chronic Obstructive Pulmonary Disease Exacerbation, [id number] kb Forms: - Medication Reconciliation Form kb - Thank You Letter kb - Antibiotic Education kb - Prescription Opioid Use kb Prescriptions: - Prednisone 20 mg Oral Tablet - take 1 tablet by ORAL route once daily for 5 days; 5 tablet; Refills: 0, kb Product Selection Permitted Addendum: 05/03/2022 03:41 Co-signature as Attending Physician, Nitin Ludwig DO I was immediately available onsite m s3 in the emergency department for consultation in the care of the patient. Signatures: Dispatcher [employer] Kacey Anaay, BING-C SWEAT BOX ATTENDANT-Vikki Riley, RN RN Nitin Logan DO DO ms3 Ivette Ludwig RN RN em6
[2022-05-03 04:55] VITALS: TEMP 97.5
[2022-05-03 04:57] VITALS: BP 143/70; O2SAT 98
== END 2022-05-01 20:14 | disposition home or self-care (01) ==
LOC: ER 18:17
DX: J44.9 Chronic obstructive pulmonary disease, unspecified (principal); Z20.822 Contact with and (suspected) exposure to COVID-19
CPT/HCPCS: 87804 ×2; 71045; 96372; 99284; U0003; J2930

== ENCOUNTER 2023-04-28 13:32 | Emergency (ER) | payer OTHER, SELFPAY ==
--- OUTSIDE RECORDS SUMMARY | 2023-04-28 13:37 | XMS REPORT | Continuity of Care Document ---
:1970 Author Organization [facility] t Address [address] [place] [address] [place] [id number] Care Team Providers Name Role Phone Es Palma MD Primary Care Physician [phone] Es Palma MD Attending Clinician Clive Brown MD Attending Clinician DEJA GARAY Attending Clinician Unavailable ES PALMA Attending Clinician Unavailable Deja Carbajal Attending Clinician Doctor Unassigned, Woody Attending Clinician Unavailable Lab, Ang - Db Attending Clinician Unavailable Payers Payer Name Policy Type Policy Number Effective Date Expiration Date S ource Problems Condition Condition Condition Status Onset Resolution Last Treating Co mments Source Name Details Category Date Date Treatment Clinician Date Obesity Obesity Disease Active 2020-08 Univers (BMI (BMI 2-29 ity of 30-39.9) 30-39.9) 00:00: [place] [address] Medical Branch Dysuria Dysuria Disease Active 2020-08 Univers 2-29 ity of 00:00: [place] [address] Medical Branch Screening Screening Disease Active 2020-08 Uni vers examinatio examinatio it y of n for STD n for STD 00:00: [place] (sexually (sexually 00 Medi amado transmitte transmitte Br anch d disease) d disease) Encounter Encounter Disease Active 2020-08 Uni vers for for - ity of surveillan surveillan [place] of 00 Medical other other Branch contracept contracept sukhwinder sukhwinder Irregular Irregular Disease Active 2020-08 Uni vers menstrual menstrual ity of cycle cycle 00:00: [place] 00 Medical Branch Vitamin D Vitamin D Disease Active 2020-08 Uni vers deficiency deficiency -06 it y of 00:00: [place] 00 Medical Branch B12 B12 Disease Active 2020-08 Univers deficiency deficiency 06 it y of (suboptima (suboptima [place] l level l level 00 Medical <400) <400) Branch Iron Iron Disease Active 2020-08 Univers deficiency deficiency -06 it y of anemia, anemia, 00:00: [place] unspecifie unspecifie 00 Me dical d iron d iron Branch deficiency deficiency anemia anemia type type Hyperchole Hyperchole Disease Active 2020-08 U kate sterolemia sterolemia 06 it y of 00:00: [place] 00 Medical Branch Abnormal Abnormal Disease Active 2020-08 Unive rs liver liver 08-19 ity of function function 00:00: [place] test test 00 Medical Branch Acquired Acquired Disease Active 2020-08 Overview: Un yasmeen hypothyroi hypothyroi 05 Formattin ity of dism dism 00:00: g of this [place] 00 note Medical might be Branch different from the original. 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 No seizures since 2019 Menorrhagi Menorrhagi Disease Active 2020-08 U gayatriers a a 1-05 ity of 00:00: [place] 00 Medical Branch Tobacco Tobacco Disease Active 2020-08 Univers dependence dependence 1-05 it y of 00:00: [place] 00 Medical Branch COVID-19 COVID-19 Disease Active 2020-08 Unive rs 0-01 ity of 00:00: [place] 00 Medical Branch Allergies, Adverse Reactions, Alerts Allergy Allergy Status Severity Reaction(s) Onset Inactive Treating Comm ents Source Name Type Date Date Clinician NO KNOWN Drug Active Univers ALLERGIE Class ity of S [facility] Social History Social Habit Start Date Stop Date Quantity Comments Source Exposure to Not sure University of SARS-CoV-2 [place] [facility] (event) Branch Alcohol intake 2021-08-11 2021-08-11 [facility] 00:[facility]:00 00:00:00 (finding) [facility] Tobacco use and 2021-06-18 2021-06-18 Never used Universit y of exposure 00:00:00 00:00:00 [facility] Sex [birth year] Universit y of 00:00:00 00:00:00 [facility] Smoking Status Start Date Stop Date Source Current every day smoker 2021-06-18 00:00:00 Uni versity [facility] Medications Ordered Filled Start Stop Current Ordering Indication Dosage Frequency Signature Comments Components Source Medication Medication Date Date Medication? Clinician (SIG) Name Name ALBUTEROL 2021-0 No NEB 0.083% 8-16 00:00: 00 TAKE 1 2021-0 No 800 TABLET 3 7-10 TIMES DAILY 00:00: WITH FOOD 00 NEEDED. TAKE 1 2021-0 No 800 TABLET 3 7-05 TIMES DAILY 00:00: WITH FOOD 00 NEEDED. TAKE 1 2021-0 No 800 TABLET 3 7-05 TIMES DAILY 00:00: WITH FOOD 00 NEEDED. levothyroxi 2-0 No 1mcg ne 200 mcg 6-14 tablet 00:00: 00 levothyroxi 2-0 No 1mcg ne 200 mcg 6-14 tablet 00:00: 00 ProAir HFA 2022-0 No 2mcg/ac 90 6-13 tuation mcg/actuati 00:00: on aerosol 00 inhaler rosuvastati 2-0 No 1mg n 10 mg 6-13 tablet 00:00: 00 rosuvastati 2022-0 No 1mg n 10 mg 6-13 tablet 00:00: 00 ProAir HFA 2022-0 No 2mcg/ac 90 6-13 tuation mcg/actuati 00:00: on aerosol 00 inhaler rosuvastati 2022-0 No 1mg n 10 mg 6-13 tablet 00:00: 00 rosuvastati 2022-0 No 1mg n 10 mg 6-13 tablet 00:00: 00 levothyroxi 2022-0 No 1mcg ne 200 mcg 6-13 tablet 00:00: 00 albuterol 2-0 No 3mg/3 sulfate 6-13 mL 1.25 mg/3 00:00: mL solution 00 for nebulizatio n Dose 0 No Unknown 01-24 00:00: 00 Dose 2021-0 No Unknown 01-24 00:00: 00 levothyroxi 0 No 1mcg ne 200 mcg 01-24 tablet 00:00: 00 albuterol No 3mg/3 sulfate - mL 1.25 mg/3 00:00: mL solution 00 for nebulizatio n Dose 0 No Unknown 01-24 00:00: 00 Dose 2021-0 No Unknown 01-24 00:00: 00 VENTOLIN Yes [id number] INHALE 2 Univers HFA 90 4-07 [id number] PUFFS BY ity of mcg/actuati 00:00: MOUTH [place] on inhaler 00 EVERY 6 Medica l HOURS Branch NEEDED FOR WHEEZING OR SHORTNESS OF BREATHE. VENTOLIN Yes [id number] INHALE 2 Univers HFA 90 4-07 [id number] PUFFS BY ity of mcg/actuati 00:00: MOUTH [place] on inhaler 00 EVERY 6 Medica l HOURS Branch NEEDED FOR WHEEZING OR SHORTNESS OF BREATHE. VENTOLIN Yes [id number] INHALE 2 Univers HFA 90 4-07 [id number] PUFFS BY ity of mcg/actuati 00:00: MOUTH [place] on inhaler 00 EVERY 6 Medica l HOURS Branch NEEDED FOR WHEEZING OR SHORTNESS OF BREATHE. VENTOLIN Yes [id number] INHALE 2 Univers HFA 90 4-07 [id number] PUFFS BY ity of mcg/actuati 00:00: MOUTH [place] on inhaler 00 EVERY 6 Medica l HOURS Branch NEEDED FOR WHEEZING OR SHORTNESS OF BREATHE. ALBUTEROL Yes [id number] USE 3 ML Univers 2.5 mg /3 4-05 [id number] VIA ity of mL (0.083 00:00: NEBULIZER [place] %) 00 FOUR TIMES Medical nebulizer DAILY Branch solution ALBUTEROL Yes [id number] USE 3 ML Univers 2.5 mg /3 4-05 [id number] VIA ity of mL (0.083 00:00: NEBULIZER [place] %) 00 FOUR TIMES Medical nebulizer DAILY Branch solution ALBUTEROL Yes [id number] USE 3 ML Univers 2.5 mg /3 11-16 [id number] VIA ity of mL (0.083 00:00: NEBULIZER [place] %) 00 FOUR TIMES Medical nebulizer DAILY Branch solution ALBUTEROL Yes [id number] USE 3 ML Univers 2.5 mg /3 11-16 [id number] VIA ity of mL (0.083 00:00: NEBULIZER [place] %) 00 FOUR TIMES Medical nebulizer DAILY Branch solution ALBUTEROL Yes [id number] USE 3 ML Univers 2.5 mg /3 11-16 [id number] VIA ity of mL (0.083 00:00: NEBULIZER [place] %) 00 FOUR TIMES Medical nebulizer DAILY Branch solution VENTOLIN Yes [id number] INHALE 2 Univers HFA 90 - [id number] PUFFS BY ity of mcg/actuati 00:00: MOUTH [place] on inhaler 00 EVERY 6 Medica l HOURS Branch NEEDED FOR WHEEZING OR SHORTNESS OF BREATHE. VENTOLIN Yes [id number] INHALE 2 Univers HFA 90 - [id number] PUFFS BY ity of mcg/actuati 00:00: MOUTH [place] on inhaler 00 EVERY 6 Medica l HOURS Branch NEEDED FOR WHEEZING OR SHORTNESS OF BREATHE. VENTOLIN 2021- No [id number] INHALE 2 Univers HFA 90 - 04-07 [id number] PUFFS BY ity of mcg/actuati 00:00: 00:00 [place]TH [place] inhaler 00 :00 EVERY 6 Medica l HOURS Branch NEEDED FOR WHEEZING OR SHORTNESS OF BREATHE. ALBUTEROL Yes [id number] USE 3 ML Univers 2.5 mg /3 - [id number] VIA ity of mL (0.083 00:00: NEBULIZER [place] %) 00 FOUR TIMES Medical nebulizer DAILY Branch solution ALBUTEROL Yes [id number] USE 3 ML Univers 2.5 mg /3 08-26 [id number] VIA ity of mL (0.083 00:00: NEBULIZER [place] %) 00 FOUR TIMES Medical nebulizer DAILY Branch solution ALBUTEROL 2021- No [id number] USE 3 ML Univers 2.5 mg /3 1-13 04-05 [id number] VIA ity of mL (0.083 00:00: 00:00 NE[place]ULIZER [place] 00 :00 FOUR TIMES Medical nebulizer DAILY Branch solution rosuvastati 2020-08 Yes 626 10mg Take 1 Univ ers n 10 mg 1-06 tablet by ity of tablet 00:00: mouth at [place] 00 bedtime. Medical Indication Branch s: high cholestero l Ferrous 2020-08 Yes 713 1{tbl} Take 1 Univer s Fumarate 1-06 tablet by ity of 324 mg (106 00:00: mouth [place] mg iron) 00 daily. Medical Tab Take with Branch a source of vitamin C. Indication s: anemia from inadequate iron Cholecalcif 2020-08 Yes [id number] 1999U Take 1 Univers cassie, 1-06 capsule by ity of Vitamin D3, 00:00: mouth [place] (D3-1999) 00 daily. Medical 50 mcg Take with Branch (2,000 food. unit) capsule vitamin 2020-08 Yes [id number] 500ug Take 1 Un yasmeen B-12 1-06 tablet by ity of (VITAMIN 00:00: mouth [place] B-12) 500 00 daily. Medical mcg tablet Branch rosuvastati 2020-08 Yes 626 10mg Take 1 Univ ers n 10 mg 1-06 tablet by ity of tablet 00:00: mouth at [place] 00 bedtime. Medical Indication Branch s: high cholestero l Ferrous 2020-08 Yes 713 1{tbl} Take 1 Univer s Fumarate 1-06 tablet by ity of 324 mg (106 00:00: mouth [place] mg iron) 00 daily. Medical Tab Take with Branch a source of vitamin C. Indication s: anemia from inadequate iron Cholecalcif 2020-08 Yes [id number] 1999U Take 1 Univers cassie, 1-06 capsule by ity of Vitamin D3, 00:00: mouth [place] (D3-1999) 00 daily. Medical 50 mcg Take with Branch (2,000 food. unit) capsule vitamin 2020-08 Yes [id number] 500ug Take 1 Un yasmeen B-12 1-06 tablet by ity of (VITAMIN 00:00: mouth [place] B-12) 500 00 daily. Medical mcg tablet Branch rosuvastati 2020-08 Yes 626 10mg Take 1 Univ ers n 10 mg 1-06 tablet by ity of tablet 00:00: mouth at [place] 00 bedtime. Medical Indication Branch s: high cholestero l Ferrous 2020-08 Yes 713 1{tbl} Take 1 Univer s Fumarate 1-06 tablet by ity of 324 mg (106 00:00: mouth [place] mg iron) 00 daily. Medical Tab Take with Branch a source of vitamin C. Indication s: anemia from inadequate iron Cholecalcif 2020-08 Yes [id number] 1999U Take 1 Univers cassie, 1-06 capsule by ity of Vitamin D3, 00:00: mouth [place] (D3-1999) 00 daily. Medical 50 mcg Take with Branch (2,000 food. unit) capsule vitamin 2020-08 Yes [id number] 500ug Take 1 Un yasmeen B-12 1-06 tablet by ity of (VITAMIN 00:00: mouth [place] B-12) 500 00 daily. Medical mcg tablet Branch rosuvastati 2020-08 Yes 626 10mg Take 1 Univ ers n 10 mg 1-06 tablet by ity of tablet 00:00: mouth at [place] 00 bedtime. Medical Indication Branch s: high cholestero l Ferrous 2020-08 Yes 713 1{tbl} Take 1 Univer s Fumarate 1-06 tablet by ity of 324 mg (106 00:00: mouth [place] mg iron) 00 daily. Medical Tab Take with Branch a source of vitamin C. Indication s: anemia from inadequate iron Cholecalcif 2020-08 Yes [id number] 1999U Take 1 Univers cassie, 1-06 capsule by ity of Vitamin D3, 00:00: mouth [place] (D3-1999) 00 daily. Medical 50 mcg Take with Branch (2,000 food. unit) capsule vitamin 2020-08 Yes [id number] 500ug Take 1 Un yasmeen B-12 1-06 tablet by ity of (VITAMIN 00:00: mouth [place] B-12) 500 00 daily. Medical mcg tablet Branch rosuvastati 2020-08 Yes 626 10mg Take 1 Univ ers n 10 mg 1-06 tablet by ity of tablet 00:00: mouth at [place] 00 bedtime. Medical Indication Branch s: high cholestero l Ferrous 2020-08 Yes 713 1{tbl} Take 1 Univer s Fumarate 1-06 tablet by ity of 324 mg (106 00:00: mouth [place] mg iron) 00 daily. Medical Tab Take with Branch a source of vitamin C. Indication s: anemia from inadequate iron Cholecalcif 2020-08 Yes [id number] 1999U Take 1 Univers cassie, 1-06 capsule by ity of Vitamin D3, 00:00: mouth [place] (D3-1999) 00 daily. Medical 50 mcg Take with Branch (2,000 food. unit) capsule vitamin 2020-08 Yes [id number] 500ug Take 1 Un yasmeen B-12 1-06 [...] anemia from inadequate iron Cholecalcif 2020-08 Yes [id number] 1999U Take 1 Univers acssie, 1-06 capsule by ity of Vitamin D3, 00:00: mouth [place] (D3-1999) 00 daily. Medical 50 mcg Take with Branch (2,000 food. unit) capsule vitamin 2020-08 Yes [id number] 500ug Take 1 Un yasmeen B-12 1-06 [...] anemia from inadequate iron Cholecalcif 2020-08 Yes [id number] 1999U Take 1 Univers cassie, 1-06 capsule by ity of Vitamin D3, 00:00: mouth [place] (D3-1999) 00 daily. Medical 50 mcg Take with Branch (2,000 food. unit) capsule vitamin 2020-08 Yes [id number] 500ug Take 1 Un yasmeen B-12 1-06 [...] anemia from inadequate iron Cholecalcif 2020-08 Yes [id number] 1999U Take 1 Univers cassie, 1-06 capsule by ity of Vitamin D3, 00:00: mouth [place] (D3-1999) 00 daily. Medical 50 mcg Take with Branch (2,000 food. unit) capsule vitamin 2020-08 Yes [id number] 500ug Take 1 Un yasmeen B-12 1-06 tablet by ity of (VITAMIN 00:00: mouth [place] B-12) 500 00 daily. Medical mcg tablet Branch levothyroxi 2020-08 Yes [id number] 200ug Take 1 Univers ne 200 mcg 1-05 tablet by ity of tablet 00:00: mouth [place] 00 every Medical morning. Branch albuterol 2020-08 Yes [id number] 2{puff} Inhale 2 Univers 90 1-05 [id number] Puffs ity of mcg/actuati 00:00: every 6 [place] on inhaler 00 (six) Medical hours as Branch needed for Wheezing or Shortness of Breath. albuterol 2020-08 Yes [id number] 2.5mg Inhale 3 Univers 2.5 mg /3 1-05 [id number] mL 4 ity of mL (0.083 00:00: (four) [place] %) 00 times Medical nebulizer daily. Branch solution levothyroxi 2020-08 Yes [id number] 200ug Take 1 Univers ne 200 mcg 1-05 tablet by ity of tablet 00:00: mouth [place] 00 every Medical morning. Branch albuterol 2020-08 Yes [id number] 2{puff} Inhale 2 Univers 90 1-05 [id number] Puffs ity of mcg/actuati 00:00: every 6 [place] on inhaler 00 (six) Medical hours as Branch needed for Wheezing or Shortness of Breath. levothyroxi 2020-08 Yes [id number] 200ug Take 1 Univers ne 200 mcg 1-05 tablet by ity of tablet 00:00: mouth [place] 00 every Medical morning. [place] levothyroxi 2020-08 Yes [id number] 200ug Take 1 Univers ne 200 mcg 1-05 tablet by ity of tablet 00:00: mouth [place] 00 every Medical morning. [place] levothyroxi 2020-08 Yes [id number] 200ug Take 1 Univers ne 200 mcg 1-05 tablet by ity of tablet 00:00: mouth [place] 00 every Medical morning. [place] levothyroxi 2020-08 Yes [id number] 200ug Take 1 Univers ne 200 mcg 1-05 tablet by ity of tablet 00:00: mouth [place] 00 every Medical morning. [place] levothyroxi 2020-08 Yes [id number] 200ug Take 1 Univers ne 200 mcg 1-05 tablet by ity of tablet 00:00: mouth [place] 00 every Medical morning. [place] levothyroxi 2020-08 Yes [id number] 200ug Take 1 Univers ne 200 mcg 1-05 tablet by ity of tablet 00:00: mouth [place] 00 every Medical morning. [place] albuterol 2020-08- No [id number] 2{puff} Inhale 2 Univers 90 08-18 [id number] Puffs ity of mcg/actuati 00:00: 00:00 every 6 [place] inhaler 00 :00 (six) Medical hours as Branch needed for Wheezing or Shortness of Breath. albuterol 2020-08- No [id number] 2.5mg Inhale 3 Univers 2.5 mg /3 08-18 [id number] mL 4 ity of mL (0.083 00:00: 00:00 (four) [place] %) 00 :00 times Medical nebulizer daily. [place] solution Immunizations Ordered Immunization Filled Immunization Date Status Commen ts Source Name Name SHINGRIX VACCINE 2022-01-24 Completed 00:00:00 Tdap 2022-01-24 Completed 00:00:00 pneumococcal 2022-01-24 Completed polysacchar 00:00:00 SHINGRIX VACCINE 2022-01-24 Completed 00:00:00 Tdap 2022-01-24 Completed 00:00:00 pneumococcal 2022-01-24 Completed polysacchar 00:00:00 Vital Signs Vital Name Observation Time Observation Value Comments Source Systolic blood 2021-08-11 21:09:00 135 mm[Hg] Univer sity of pressure [facility] Diastolic blood 2021-08-11 21:09:00 74 mm[Hg] Unive rsity [facility] Heart rate 2021-08-11 21:09:00 85 /min General acute hospital Body temperature 2021-08-11 21:09:00 36.22 [facility] 2021-08-11 21:09:00 20 /min [facility] Body height 2021-08-11 21:09:00 170.2 cm General acute hospital Body weight 2021-08-11 21:09:00 103.692 kg General acute hospital BMI 2021-08-11 21:09:00 35.80 kg/m2 General acute hospital BP Systolic 2022-08-30 16:17:00 134 mm[Hg] BP Diastolic 2022-08-30 16:17:00 81 mm[Hg] Weight Measured 2022-08-30 16:17:00 208.00 pounds Height Measured 2022-08-30 16:17:00 67.00 inches Body Temperature 2022-08-30 16:17:00 97.30 degrees Heart Rate 2022-08-30 16:17:00 76.00 /min Respiratory Rate 2022-08-30 16:17:00 BP Systolic 2022-02-15 13:32:00 111 mm[Hg] BP Diastolic 2022-02-15 13:32:00 71 mm[Hg] Weight Measured 2022-02-15 13:32:00 220.00 pounds Height Measured 2022-02-15 13:32:00 67.00 inches Body Temperature 2022-02-15 13:32:00 98.00 degrees Heart Rate 2022-02-15 13:32:00 70.00 /min Respiratory Rate 2022-02-15 13:32:00 16.00 /min BP Systolic 2022-01-24 10:55:00 98 mm[Hg] BP Diastolic 2022-01-24 10:55:00 63 mm[Hg] Weight Measured 2022-01-24 10:55:00 221.80 pounds Height Measured 2022-01-24 10:55:00 67.00 inches Body Temperature 2022-01-24 10:55:00 97.20 degrees Heart Rate 2022-01-24 10:55:00 81.00 /min Respiratory Rate 2022-01-24 10:55:00 24.00 /min Procedures Procedure Date / Time Performed Performing Clinician Sourc e POCT URINALYSIS W/O 2021-08-11 00:00:00 Deja Garay [facility] Plan of Care Planned Activity Planned Date Details Comments Source Goal Plan of Care Note [code = 89032-7] Goal Plan of Care Note [code = 18651-4] Goal Plan of Care Note [code = 03728-8] Goal Plan of Care Note [code = 60650-9] Goal Plan of Care Note [code = 87945-1] Goal Plan of Care Note [code = 11363-2] Goal Plan of Care Note [code = 59178-5] Goal Plan of Care Note [code = 13581-1] Goal Plan of Care Note [code = 40684-1] Goal Plan of Care Note [code = 33090-4] Goal Plan of Care Note [code = 60243-3] Goal Plan of Care Note [code = 28340-3] Goal Plan of Care Note [code = 20557-4] Goal Plan of Care Note [code = 03691-0] Goal Plan of Care Note [code = 28857-2] Goal Plan of Care Note [code = 79417-6] Goal Plan of Care Note [code = 30246-5] Goal Plan of Care Note [code = 56130-1] Goal Plan of Care Note [code = 89881-5] Goal Plan of Care Note [code = 53462-2] Goal Plan of Care Note [code = 36985-4] Goal Plan of Care Note [code = 06207-2] Goal Plan of Care Note [code = 24597-7] Goal Plan of Care Note [code = 34168-8] Goal Plan of Care Note [code = 68416-0] Goal Plan of Care Note [code = 25696-1] Encounters Start End Encounter Admission Attending Care Care Encounter Source Date/Time Date/Time Type Type Clinicians Facility Department ID 2023-03-20 2023-03-20 Outpatient [facility] Sergei 14:39:55 14:39:55 [id number] F Javier 2022-12-26 2022-12-26 Outpatient [facility] Sergei 09:53:27 09:53:27 [id number] F Javier 2022-12-22 2022-12-22 Outpatient [facility] Sergei 11:01:00 11:01:00 [id number] [place] 2022-10-19 2022-10-19 Outpatient [facility] Sergei 10:14:43 10:14:43 [id number] [place] 2022-09-05 2022-09-05 Outpatient [facility] Sergei 08:02:41 08:02:41 [id number] [place] 2022-08-30 2022-08-30 Outpatient [facility] Sergei 15:38:19 15:38:19 [id number] F [place] 2022-08-30 2022-08-30 Outpatient [id number] 00:00:00 00:00:00 Visit [id number] 2022-02-15 2022-02-15 Outpatient [id number] 00:00:00 00:00:00 Visit [id number] 2021-12-30 2021-12-30 January Palma ILIESHA 1.2.840.114 [id number] Univers 00:00:00 00:00:00 [facility] 350.1.13.10 ity of [place] 4.2.7.2.686 [place] as STEFAN?BLEA [id number] [address] MEDICAL OFFICE BUILDING 2021-12-21 2021-12-21 [facility] 1.2.840.114 [id number] Univers 00:00:00 00:00:00 Wondiful A HEALTH 350.1.13.10 ity of [place] 4.2.7.2.686 [place] STEFAN?BLEA [id number] [address] 2021-11-18 2021-11-18 [facility] 1.2.840.114 [id number] Univers 00:00:00 00:00:00 Wondiful A HEALTH 350.1.13.10 ity of [place] 4.2.7.2.686 [place] as STEFAN?BLEA [id number] [address] 2021-11-18 2021-11-18 [facility] 1.2.840.114 [id number] Univers 00:00:00 00:00:00 Clive HEALTH 350.1.13.10 it y of [place] 4.2.7.2.686 [place] as STEFAN?BLEA [id number] [address] 2021-11-15 2021-11-15 [facility] 1.2.840.114 [id number] Univers 00:00:00 00:00:00 Wondiful A HEALTH 350.1.13.10 ity of [place] 4.2.7.2.686 [place] as STEFAN?BLEA [id number] [address] 2021-10-27 2021-10-27 Outpatient Harish GARAY [facility] [id number] Univers 13:40:00 13:40:00 PAULHUNDA ity o f [facility] 2021-10-08 2021-10-08 Outpatient Harish PALMA [facility] [id number] Univers 10:00:00 10:00:00 WONDIFUL ity o f [facility] 2021-10-01 2021-10-01 Outpatient Harish GARAY [facility] [id number] Univers 00:00:00 00:00:00 ROSHUNDA ity o f [facility] 2021-09-10 2021-09-10 [facility] [id number] Univers 08:45:00 08:45:00 WONDIFUL ity o f [facility] 2021-09-08 2021-09-08 [facility] 1.2.840.114 [id number] Univers 00:00:00 00:00:00 Wondiful A HEALTH 350.1.13.10 ity of [place] 4.2.7.2.686 [place] as STEFAN?BLEA [id number] [address] MEDICAL OFFICE BUILDING 2021-08-24 2021-08-24 [facility] 1.2.840.114 [id number] Univers 00:00:00 00:00:00 Wondiful A HEALTH 350.1.13.10 ity of [place] 4.2.7.2.686 [place] as STEFAN?BLEA [id number] [address] MEDICAL OFFICE [facility] 2021-08-11 2021-08-11 [facility]patient [facility] [id number] Univers 15:15:00 15:57:[address] [facility] ity o 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 350.1.13.10 ity of [facility] 4.2.7.2.686 [place] as MATERNAL [id number] Med ical & CHILD [address] [place] [address] 2021-08-11 2021-08-11 [facility] [id number] Univers 15:15:00 15:57:54 [facility] 2021-08-11 2021-08-11 Orders Doctor SALVADOR 1.2.840.114 [id number] Univers 00:00:00 00:00:00 Only Unassigned, PREET 350.1.13.10 ity of [place] [facility] 4.2.7.2.686 [place] as [id number] [address] 2021-06-30 2021-06-30 Orders Doctor SALVADOR 1.2.840.114 [id number] Univers 00:00:00 00:00:00 Only Unassigned, PREET 350.1.13.10 ity of [place] [facility] 4.2.7.2.686 Stone as [id number] [address] 2021-06-24 2021-06-24 Telephone [facility] 1.2.840.114 [id number] Univers 00:00:00 00:00:00 Wondiful A HEALTH 350.1.13.10 ity of [place] 4.2.7.2.686 [place] as STEFAN?BLEA [id number] [address] OFFICE [facility] 2021-06-22 2021-06-22 [place] [facility] 1.2.840.114 [id number] Univers 00:00:00 00:00:00 Wondiful A HEALTH 350.1.13.10 ity of [place] 4.2.7.2.686 [place] as STEFAN?BLEA [id number] [address] OFFICE [facility] 2021-06-21 2021-06-21 Clifford [facility] 1.2.840.114 [id number] Univers 00:00:00 00:00:00 Wondiful A HEALTH 350.1.13.10 ity of [place] 4.2.7.2.686 [place] as STEFAN?BLEA [id number] [address] OFFICE [facility] 2021-06-19 2021-06-19 Case [facility] 1.2.840.114 [id number] Univers 00:00:00 00:00:00 Management Wondiful A HEALTH 350.1.13.10 ity of [place] 4.2.7.2.686 [place] as STEFAN?BLEA [id number] [address] 2021-06-18 2021-06-18 Outpatient R RONDA [facility] [id number] Univers 11:00:00 11:00:00 WONDIFUL ity o f [facility] 2021-06-18 2021-06-18 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 Lab, Jesse - Michael [facility] 1.2.840.1 14 [id number] Univers 10:00:57 10:13:18 Visit Es Palma HEALTH 350.1.13.1 0 ity of [place] 4.2.7.2.686 [place] as STEFAN?BLEA [id number] Ne millie CHAMBERLAIN [address] [place] MEDICAL OFFICE [facility] 2021-06-18 2021-06-18 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 Interviewer Lab, Ang - Db [facility] [facility] 1.2.840.1 [id number] [facility] 10:00:57 10:13:18 Visit Es [place] 350.1.13.1 0 ity of [place] 4.2.7.2.686 Stone as STEFAN?BLEA [phone] [facility] 353 [facility] OFFICE [facility] 2021-06-18 2021-06-18 Office [facility] [id number] [facility] 09:08:09 09:53:07 Visit Es Gary [facility] 350.1.13.10 [facility] 4.2.7.2.686 Stone as STEFAN?BLEA [phone] Ne millie PARKS 044 [facility] OFFICE [facility] 2021-06-18 2021-06-18 Outpatient [facility] [id number] Univers 09:00:00 09:53:07 WONDIFUL ity o f [facility] 2021-06-18 2021-06-18 Orders Doctor MADELEINE 1.2.840.114 [id number] Univers 00:00:00 00:00:00 Only Unassigned, PREET 350.1.13.10 ity of [place] [facility] 4.2.7.2.686 Stone as [phone] [address] Results Test Description Test Time Test Comments Results Result Comments Source OCCULT BLD,FECAL,IMMUNOASSAY DIAG 2022-10-27 11:26:24 Test Item Value Reference Range Interpretation Comme nts OCCULT BLD, FECAL (test NEGATIVE NEGATIVE [facility] has important pathology staff code = 98660) changes effect sukhwinder 10/12/2022. New pathology staff will provide uninterrupted, excellent patient care and clinical co nsultation. See URL: [email or web address]. UNLESS OTHERWISE INDIC ATED, ALL TESTING PERFORMED AT [facility] [place]. [address] [place] [id number] ANIKA NAVA DIRECTOR: Pete ZAPATAIA NUMBER [id number] [place] [id number] TSH, THIRD [id number] 08:52:55 Test Item Value Reference Range Interpretation Comments TSH, THIRD GENERATION (test code 0.446 UIU/ML 0.400-4.100 = 2821) COMPREHENSIVE METABOLIC [id number] 06:45:32 Test Item Value Reference Range Interpretation Comments GLUCOSE (test code = 98 MG/DL 70-99 2216) BUN (test code = 9 MG/DL 6-20 2207) CREATININE (test 0.61 MG/DL 0.60-1.30 code = 2214) eGFR (2020 CKD-EPI) 108 >60 (test code = 54988) ML/MIN/1.73 CALC BUN/CREAT (test 15 RATIO 6-28 code = 2235) SODIUM (test code = 141 MEQ/L 383-910 4562) POTASSIUM (test code 4.1 MEQ/L 3.5-5.4 = 2227) CHLORIDE (test code 102 MEQ/L 95-107 = 2215) CARBON DIOXIDE (test 23 MEQ/L 19-31 code = 2206) CALCIUM (test code = 9.6 MG/DL 8.5-10.5 2208) PROTEIN, TOTAL (test 7.6 G/DL 6.1-8.3 code = 2229) ALBUMIN (test code = 4.7 G/DL 3.5-5.2 2200) CALC GLOBULIN (test 2.9 G/DL 1.9-3.7 code = 2240) CALC A/G RATIO (test 1.6 RATIO 1.0-2.6 code = 2234) BILIRUBIN, TOTAL 0.4 MG/DL See_Comment [Automated message] (test code = 2207) The syste m which generated this result transmit lalo reference range : <=1.2. The refe rence range was not u sed to interpret th is result as normal/abnormal . ALKALINE PHOSPHATASE 107 U/L 40-130 (test code = 2204) AST (test code = 13 U/L 9-40 2217) ALT (test code = 12 U/L 5-40 2218) LIPID [id number] 06:45:32 Test Item Value Reference Range Interpretation Comments CHOLESTEROL (test 143 MG/DL <200 code = 2210) TRIGLYCERIDES (test 176 MG/DL <150 H code = 2232) HDL CHOLESTEROL (test 37 MG/DL >39 L code = 2220) CALC LDL CHOL (test 79 MG/DL <100 NOTE: C ALCULATED LDL code = 2237) IS BASED ON SVETLANA-GREER METHOD WHICHINCLUDES ADJUSTABLE TRIGLYCERIDE:VL DL CHOLESTEROL RAT IO.THIS FACTOR VARIES B Y MEASURED TRIGLY CERIDE AND NON-HDLCHOL ESTEROL CONCENTRATIONS WITH INCREASED CALCU LATED LDL SEENIN HIGH ER TRIGLYCERIDE OR LOWER NON-HDL SPECIME NS. FOR MOREINFORMATION , SEE CLIENT ANNOUNCE MENT AT [email or web address] [email or web address] LDL/HDL 2.14 RATIO <3.22 (test code = 2238) HEMOGLOBIN [id number] 02:49:41 Test Item Value Reference Range Interpretation Comments HEMOGLOBIN A1c (test 5.7 % 4.2-5.6 H UNLESS OTHERWISE code = 15045) INDICATED, ALL TESTING PERFORMED [facility] [employer] [address] [place] [id number] [place], [place] [address]Cookie NAVA DIRECTOR: MADIE CHAIDEZ M.D. CLIA NUMBER [id number] CAP ACCREDITATION N O. [id number] TSH, THIRD [id number] 09:45:16 Test Item Value Reference Range Interpretation Comments TSH, THIRD 5.950 UIU/ML 0.400-4.100 H UNLESS OTHERWI SE GENERATION (test INDICATED, ALL TESTING code = 2821) PERFORMED [facility], [facility]. [address] [place] [address] [facility] BRANDY DIRECTOR: MADIE CHAIDEZ M.D. CLIA NUMBER [id number] CAP ACCREDITATION N O. [id number] LIPID [id number] 06:03:19 Test Item Value Reference Range Interpretation [...] MOREINFORMATION , SEE CLIENT ANNOUNCE MENT AT [email or web address] [email or web address] [email or web address] LDL/HDL 4.89 RATIO <3.22 H (test code = 2238) COMPREHENSIVE METABOLIC [id number] 06:03:19 Test Item Value Reference Range Interpretation Comments GLUCOSE (test code = 105 MG/DL 70-99 H 2216) BUN (test code = 8 MG/DL 6-20 2207) CREATININE (test 0.66 MG/DL 0.60-1.30 code = 221) eGFR (2020 CKD-EPI) 107 >60 (test code = 80989) ML/MIN/1.73 CALC BUN/CREAT (test 12 RATIO 6-28 code = 2235) SODIUM (test code = 139 MEQ/L 286-864 9849) POTASSIUM (test code 4.6 MEQ/L 3.5-5.4 = 2227) CHLORIDE (test code 102 MEQ/L 95-107 = 2214) CARBON DIOXIDE (test 26 MEQ/L 19-31 code = 220) CALCIUM (test code = 9.8 MG/DL 8.5-10.5 2208) PROTEIN, TOTAL (test 7.7 G/DL 6.1-8.3 code = 2229) ALBUMIN (test code = 4.5 G/DL 3.5-5.2 2200) CALC GLOBULIN (test 3.2 G/DL 1.9-3.7 code = 2240) CALC A/G RATIO (test 1.4 RATIO 1.0-2.6 code = 2234) BILIRUBIN, TOTAL 0.3 MG/DL See_Comment [Automated message] (test code = 2207) The syste m which generated this result transmit lalo reference range : <=1.2. The refe rence range was not u sed to interpret th is result as normal/abnormal . ALKALINE PHOSPHATASE 102 U/L 40-128 (test code = 2204) AST (test code = 44 U/L 9-40 H 2217) ALT (test code = 27 U/L 5-40 2218) HEMOGLOBIN [id number] 06:03:15 Test Item Value Reference Range Interpretation Comments HEMOGLOBIN A1c (test code = 58609) 6.0 % 4.2-5.6 H CBC W/AUTO DIFF WITH [id number] 05:24:42 Test Item Value Reference Range Interpretation [...] RBCS 0.00 K/UL 0.00-0.11 (test code = 32118) CBC W/AUTO [id number] 00:00:00 Test Item Value Reference Range Interpretation Comments WBC (test code = 1001) 6.6 K/UL RBC (test code = 1002) 4.78 M/UL HEMOGLOBIN (test code = 1003) 13.1 G/DL HEMATOCRIT (test code = 1004) 40.8 % MCV (test code = 1005) 85.4 fL MCH (test code = 1006) 27.4 PG MCHC (test code = 1007) 32.1 G/DL RDW (test code = 1038) 15.2 % NEUTROPHILS (test code = 1008) 60.7 % LYMPHOCYTES (test code = 1010) 27.6 % MONOCYTES (test code = 1011) 6.7 % EOSINOPHILS (test code = 1012) 3.4 % BASOPHILS (test code = 1013) 1.4 % IMMATURE GRANULOCYTES (test 0.2 % code = 1036) NUCLEATED RBCS (test code = 0.0 /100WBC'S 1065) PLATELET COUNT (test code = 267 K/UL 1015) ABSOLUTE NEUTROPHILS (test code 3.98 K/UL = 1066) ABSOLUTE LYMPHOCYTES (test code 1.81 K/UL = 1067) ABSOLUTE MONOCYTES (test code = 0.44 K/UL 1068) ABSOLUTE EOSINOPHILS (test code 0.22 K/UL = 1040) ABSOLUTE BASOPHILS (test code = 0.09 K/UL 1069) ABS IMMATURE GRANULOCYTES (test 0.01 K/UL code = 1020) ABS NUCLEATED RBCS (test code = 0.00 K/UL 12887) CBC W/AUTO [id number] 00:00:00 Test Item Value Reference Range Interpretation Comments WBC (test code = 1001) 6.6 K/UL RBC (test code = 1002) 4.78 M/UL HEMOGLOBIN (test code = 1003) 13.1 G/DL HEMATOCRIT (test code = 1004) 40.8 % MCV (test code = 1005) 85.4 fL MCH (test code = 1006) 27.4 PG MCHC (test code = 1007) 32.1 G/DL RDW (test code = 1038) 15.2 % NEUTROPHILS (test code = 1008) 60.7 % LYMPHOCYTES (test code = 1010) 27.6 % MONOCYTES (test code = 1011) 6.7 % EOSINOPHILS (test code = 1012) 3.4 % BASOPHILS (test code = 1013) 1.4 % IMMATURE GRANULOCYTES (test 0.2 % code = 1036) NUCLEATED RBCS (test code = 0.0 /100WBC'S 1065) PLATELET COUNT (test code = 267 K/UL 1015) ABSOLUTE NEUTROPHILS (test code 3.98 K/UL = 1066) ABSOLUTE LYMPHOCYTES (test code 1.81 K/UL = 1067) ABSOLUTE MONOCYTES (test code = 0.44 K/UL 1068) ABSOLUTE EOSINOPHILS (test code 0.22 K/UL = 1040) ABSOLUTE BASOPHILS (test code = 0.09 K/UL 1069) ABS IMMATURE GRANULOCYTES (test 0.01 K/UL code = 1020) ABS NUCLEATED RBCS (test code = 0.00 K/UL 69665) HEMOGLOBIN [id number] 00:00:00 Test Item Value Reference Range Interpretation Comments HEMOGLOBIN A1c (test code = 99702) 6.0 % HEMOGLOBIN [id number] 00:00:00 Test Item Value Reference Range Interpretation Comments HEMOGLOBIN A1c (test code = 25700) 6.0 % LIPID [id number] 00:00:00 Test Item Value Reference Range Interpretation Comments CHOLESTEROL (test code = 2210) 256 MG/DL TRIGLYCERIDES (test code = 2232) 223 MG/DL HDL CHOLESTEROL (test code = 2220) 37 MG/DL CALC LDL CHOL (test code = 2237) 181 MG/DL RISK RATIO LDL/HDL (test code = 4.89 RATIO 2238) COMPREHENSIVE METABOLIC [id number] 00:00:00 Test Item Value Reference Range Interpretation Comments GLUCOSE (test code = 2217) 105 MG/DL BUN (test code = 2208) 8 MG/DL CREATININE (test code = 2214) 0.66 MG/DL eGFR (2020 CKD-EPI) (test 107 ML/MIN/1.73 code = 20089) CALC BUN/CREAT (test code = 12 RATIO 2235) SODIUM (test code = 2231) 139 MEQ/L POTASSIUM (test code = 2228) 4.6 MEQ/L CHLORIDE (test code = 2215) 102 MEQ/L CARBON DIOXIDE (test code = 26 MEQ/L 2205) CALCIUM (test code = 2209) 9.8 MG/DL PROTEIN, TOTAL (test code = 7.7 G/DL 2228) ALBUMIN (test code = 2201) 4.5 G/DL CALC GLOBULIN (test code = 3.2 G/DL 2239) CALC A/G RATIO (test code = 1.4 RATIO 2233) BILIRUBIN, TOTAL (test code = 0.3 MG/DL 2206) ALKALINE PHOSPHATASE (test 102 U/L code = 2204) AST (test code = 2218) 44 U/L ALT (test code = 2219) 27 U/L [id number] 00:00:00 Test Item Value Reference Range Interpretation Comments TSH, THIRD GENERATION (test code 5.950 UIU/ML = 2821) [id number] 00:00:00 Test Item Value Reference Range Interpretation Comments TSH, THIRD GENERATION (test code 5.950 UIU/ML = 2821) CBC W/AUTO [id number] 00:00:00 Test Item Value Reference Range Interpretation Comments WBC (test code = 1001) 6.6 K/UL RBC (test code = 1002) 4.78 M/UL HEMOGLOBIN (test code = 1003) 13.1 G/DL HEMATOCRIT (test code = 1004) 40.8 % MCV (test code = 1005) 85.4 fL MCH (test code = 1006) 27.4 PG MCHC (test code = 1007) 32.1 G/DL RDW (test code = 1038) 15.2 % NEUTROPHILS (test code = 1008) 60.7 % LYMPHOCYTES (test code = 1010) 27.6 % MONOCYTES (test code = 1011) 6.7 % EOSINOPHILS (test code = 1012) 3.4 % BASOPHILS (test code = 1013) 1.4 % IMMATURE GRANULOCYTES (test 0.2 % code = 1036) NUCLEATED RBCS (test code = 0.0 /100WBC'S 1065) PLATELET COUNT (test code = 267 K/UL 1015) ABSOLUTE NEUTROPHILS (test code 3.98 K/UL = 1066) ABSOLUTE LYMPHOCYTES (test code 1.81 K/UL = 1067) ABSOLUTE MONOCYTES (test code = 0.44 K/UL 1068) ABSOLUTE EOSINOPHILS (test code 0.22 K/UL = 1040) ABSOLUTE BASOPHILS (test code = 0.09 K/UL 1069) ABS IMMATURE GRANULOCYTES (test 0.01 K/UL code = 1020) ABS NUCLEATED RBCS (test code = 0.00 K/UL 89517) CBC W/AUTO [id number] 00:00:00 Test Item Value Reference Range Interpretation Comments WBC (test code = 1001) 6.6 K/UL RBC (test code = 1002) 4.78 M/UL HEMOGLOBIN (test code = 1003) 13.1 G/DL HEMATOCRIT (test code = 1004) 40.8 % MCV (test code = 1005) 85.4 fL MCH (test code = 1006) 27.4 PG MCHC (test code = 1007) 32.1 G/DL RDW (test code = 1038) 15.2 % NEUTROPHILS (test code = 1008) 60.7 % LYMPHOCYTES (test code = 1010) 27.6 % MONOCYTES (test code = 1011) 6.7 % EOSINOPHILS (test code = 1012) 3.4 % BASOPHILS (test code = 1013) 1.4 % IMMATURE GRANULOCYTES (test 0.2 % code = 1036) NUCLEATED RBCS (test code = 0.0 /100WBC'S 1065) PLATELET COUNT (test code = 267 K/UL 1015) ABSOLUTE NEUTROPHILS (test code 3.98 K/UL = 1066) ABSOLUTE LYMPHOCYTES (test code 1.81 K/UL = 1067) ABSOLUTE MONOCYTES (test code = 0.44 K/UL 1068) ABSOLUTE EOSINOPHILS (test code 0.22 K/UL = 1040) ABSOLUTE BASOPHILS (test code = 0.09 K/UL 1069) ABS IMMATURE GRANULOCYTES (test 0.01 K/UL code = 1020) ABS NUCLEATED RBCS (test code = 0.00 K/UL 96964) CBC W/AUTO [id number] 00:00:00 Test Item Value Reference Range Interpretation Comments WBC (test code = 1001) 6.6 K/UL RBC (test code = 1002) 4.78 M/UL HEMOGLOBIN (test code = 1003) 13.1 G/DL HEMATOCRIT (test code = 1004) 40.8 % MCV (test code = 1005) 85.4 fL MCH (test code = 1006) 27.4 PG MCHC (test code = 1007) 32.1 G/DL RDW (test code = 1038) 15.2 % NEUTROPHILS (test code = 1008) 60.7 % LYMPHOCYTES (test code = 1010) 27.6 % MONOCYTES (test code = 1011) 6.7 % EOSINOPHILS (test code = 1012) 3.4 % BASOPHILS (test code = 1013) 1.4 % IMMATURE GRANULOCYTES (test 0.2 % code = 1036) NUCLEATED RBCS (test code = 0.0 /100WBC'S 1065) PLATELET COUNT (test code = 267 K/UL 1015) ABSOLUTE NEUTROPHILS (test code 3.98 K/UL = 1066) ABSOLUTE LYMPHOCYTES (test code 1.81 K/UL = 1067) ABSOLUTE MONOCYTES (test code = 0.44 K/UL 1068) ABSOLUTE EOSINOPHILS (test code 0.22 K/UL = 1040) ABSOLUTE BASOPHILS (test code = 0.09 K/UL 1069) ABS IMMATURE GRANULOCYTES (test 0.01 K/UL code = 1020) ABS NUCLEATED RBCS (test code = 0.00 K/UL 31988) HEMOGLOBIN [id number] 00:00:00 Test Item Value Reference Range Interpretation Comments HEMOGLOBIN A1c (test code = 57091) 6.0 % HEMOGLOBIN [id number] 00:00:00 Test Item Value Reference Range Interpretation Comments HEMOGLOBIN A1c (test code = 39706) 6.0 % HEMOGLOBIN [id number] 00:00:00 Test Item Value Reference Range Interpretation Comments HEMOGLOBIN A1c (test code = 86239) 6.0 % LIPID [id number] 00:00:00 Test Item Value Reference Range Interpretation Comments CHOLESTEROL (test code = 2210) 256 MG/DL TRIGLYCERIDES (test code = 2232) 223 MG/DL HDL CHOLESTEROL (test code = 2220) 37 MG/DL CALC LDL CHOL (test code = 2237) 181 MG/DL RISK RATIO LDL/HDL (test code = 4.89 RATIO 2238) LIPID [id number] 00:00:00 Test Item Value Reference Range Interpretation Comments CHOLESTEROL (test code = 2210) 256 MG/DL TRIGLYCERIDES (test code = 2232) 223 MG/DL HDL CHOLESTEROL (test code = 2220) 37 MG/DL CALC LDL CHOL (test code = 2237) 181 MG/DL RISK RATIO LDL/HDL (test code = 4.89 RATIO 2238) COMPREHENSIVE METABOLIC [id number] 00:00:00 Test Item Value Reference Range Interpretation Comments GLUCOSE (test code = 2217) 105 MG/DL BUN (test code = 2208) 8 MG/DL CREATININE (test code = 2214) 0.66 MG/DL eGFR (2020 CKD-EPI) (test 107 ML/MIN/1.73 code = 23097) CALC BUN/CREAT (test code = 12 RATIO 2235) SODIUM (test code = 2231) 139 MEQ/L POTASSIUM (test code = 2228) 4.6 MEQ/L CHLORIDE (test code = 2215) 102 MEQ/L CARBON DIOXIDE (test code = 26 MEQ/L 220) CALCIUM (test code = 2209) 9.8 MG/DL PROTEIN, TOTAL (test code = 7.7 G/DL 2228) ALBUMIN (test code = 2201) 4.5 G/DL CALC GLOBULIN (test code = 3.2 G/DL 2240) CALC A/G RATIO (test code = 1.4 RATIO 2234) BILIRUBIN, TOTAL (test code = 0.3 MG/DL 2206) ALKALINE PHOSPHATASE (test 102 U/L code = 2204) AST (test code = 2218) 44 U/L ALT (test code = 2219) 27 U/L COMPREHENSIVE METABOLIC [id number] 00:00:00 Test Item Value Reference Range Interpretation Comments GLUCOSE (test code = 2217) 105 MG/DL BUN (test code = 2208) 8 MG/DL CREATININE (test code = 2214) 0.66 MG/DL eGFR (2020 CKD-EPI) (test 107 ML/MIN/1.73 code = 38536) CALC BUN/CREAT (test code = 12 RATIO 2235) SODIUM (test code = 2231) 139 MEQ/L POTASSIUM (test code = 2228) 4.6 MEQ/L CHLORIDE (test code = 2215) 102 MEQ/L CARBON DIOXIDE (test code = 26 MEQ/L 2206) CALCIUM (test code = 2209) 9.8 MG/DL PROTEIN, TOTAL (test code = 7.7 G/DL 222) ALBUMIN (test code = 2201) 4.5 G/DL CALC GLOBULIN (test code = 3.2 G/DL 2240) CALC A/G RATIO (test code = 1.4 RATIO 2234) BILIRUBIN, TOTAL (test code = 0.3 MG/DL 7) ALKALINE PHOSPHATASE (test 102 U/L code = 2204) AST (test code = 2218) 44 U/L ALT (test code = 2219) 27 U/L [id number] 00:00:00 Test Item Value Reference Range Interpretation Comments TSH, THIRD GENERATION (test code 5.950 UIU/ML = 2821) [id number] 00:00:00 Test Item Value Reference Range Interpretation Comments TSH, THIRD GENERATION (test code 5.950 UIU/ML = 2821) [id number] 00:00:00 Test Item Value Reference Range Interpretation Comments TSH, THIRD GENERATION (test code 5.950 UIU/ML = 2821) POCT URINALYSIS W/O SPECIFIC [id number] 21:15:00 Test Item Value Reference Range Interpretation Comments POCT PH U (test code = 3254) 7 mg/dl 5-8 POCT U LEUK EST (test code = neg Negative - Negative 3) POCT U NIT (test code = 3262) neg Negative - Negative POCT U PROT (test code = 3259) neg Negative - Negative POCT U GLU (test code = 3256) normal Negative - Negative POCT U KETONE (test code = 3258) neg Negative - Negative POCT U BLD (test code = 3257) neg Negative - Negative [facility]
[2023-04-28] MEDS ORDERED: ASPIRIN 81 MG CHEWABLE TABLET ONE (14:13)
[2023-04-28] MEDS ORDERED: ALBUTEROL 2.5 MG/3 ML NEB SOL ONE ×2 (14:13→15:09)
[2023-04-28 14:33] LABS: Absolute Lymphocytes (CBC) 1.5 K/uL (0.7-4.9); Hematocrit 46.7 % (36.0-45.0); Lymphocytes % 23.2 % (15.3-44.8); MCV 89.3 fL (80-100); MPV 9.9 fL (7.6-11.3); Platelets 205 thou/uL (152-406); RBC Red Blood Cell Count 5.23 M/uL (3.86-4.86)
--- NOTE | 2023-04-28 14:44 | RAD REPORT ---
EXAM DESCRIPTION: Shana Single View04/28/2023 2:29 pm CLINICAL HISTORY: Shortness of breath COMPARISON: 2021 FINDINGS: Bilateral calcified lung granulomas The lungs appear clear of acute infiltrate. The heart is normal size IMPRESSION: No acute abnormalities displayed
[2023-04-28 14:55] LABS: ALT/SGPT 21 U/L (13-56); Albumin 3.9 g/dL (3.4-5.0); Alkaline Phosphatase 91 U/L (45-117); BUN Blood Urea Nitrogen 6 mg/dL (7-18); Bicarbonate 26 mEq/L (21-32); Bilirubin Total 0.4 mg/dL (0.2-1.0); Glomerular Filtration Rate 69 ml/min (=/>90); Glucose Level 169 mg/dL (74-106); Protein, Total 8.4 g/dL (6.4-8.2); Sodium Level 136 mEq/L (136-145)
[2023-04-28 15:05] LABS: AST/SGOT 19 U/L (15-37); Bilirubin Direct < 0.1 mg/dL (0-0.2); Bilirubin Indirect, Calculated ND mg/dL (0.2-0.8); Magnesium 2.2 mg/dL (1.6-2.4); Potassium 3.4 mEq/L (3.5-5.1); Troponin High Sensitivity < 3.0 pg/mL (<58.9)
--- NOTE | 2023-04-28 15:46 | ER ---
Nurse's Notes [facility] Name: Keesha Pedroza Age: 53 yrs Sex: Female : 1970 Arrival Date: 04/28/2023 Time: 13:32 Bed 13 Private MD: Diagnosis: Cough;Shortness of breath;Chest pain, unspecified Presentation: 04/28 13:47 Chief complaint: SOB and pain with breathing x 2 days. Coronavirus screen: At this hb time, the client does not indicate any symptoms associated with coronavirus-19. Ebola Screen: No symptoms or risks identified at this time. Initial Sepsis Screen: Does the patient meet any 2 criteria? No. Patient's initial sepsis screen is negative. Does the patient have a suspected source of infection? No. Patient's initial sepsis screen is negative. Risk Assessment: Do you want to hurt yourself or someone else? Patient reports no desire to harm self or others. Onset of symptoms was April 27, 2023. 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 - Social history:: Smoking status: . Screenin:15 [facility] ED Fall Risk Assessment (Adult) History of falling in the last 3 months, mb9 including since admission No falls in past 3 months (0 pts) Confusion or Disorientation No (0 pts) Intoxicated or Sedated No (0 pts) Impaired Gait No (0 pts) Mobility Assist Device Used No (0 pt) Altered Elimination No (0 pt) Score/Fall Risk Level 0 - 2 = Low Risk Oriented to surroundings, Maintained a safe environment, Educated pt \T\ family on fall prevention, incl call for assistance when getting out of bed. Abuse screen: Denies threats or abuse. Nutritional screening: No deficits noted. Tuberculosis screening: No symptoms or risk factors identified. Assessment: 13:51 General: Appears uncomfortable, Behavior is calm, cooperative. Pain: Complains of pain mb9 in bilateral rib Quality of pain is described as throbbing, Pain began 2-3 days ago. Is intermittent, Aggravated by coughing. Neuro: Sánchez Agitation-Sedation Scale (RASS): 0 - Alert and Calm Level of Consciousness is awake, alert, obeys commands, Oriented to person, place, time, situation, Appropriate for age. Cardiovascular: Heart tones S1 S2 present Patient's skin is warm and dry. Cardiovascular: Rhythm is regular. Respiratory: Reports shortness of breath Airway is patent Respiratory effort is even, unlabored, Respiratory pattern is regular, symmetrical, Breath sounds are clear bilaterally. GI: Abdomen is round non-distended, Bowel sounds present X 4 quads. Abd is soft and non tender X 4 quads. : No signs and/or symptoms were reported regarding the genitourinary system. Derm: Skin is pink, warm \T\ dry. Musculoskeletal: Range of motion: intact in all extremities. 14:51 Reassessment: No changes from previously documented assessment. Patient and/or family mb9 updated on plan of care and expected duration. Pain level reassessed. Patient is alert, oriented x 3, equal unlabored respirations, skin warm/dry/pink. 16:01 Reassessment: Patient and/or family updated on plan of care and expected duration. Pain mb9 level reassessed. Patient is alert, oriented x 3, equal unlabored respirations, skin warm/dry/pink. Patient states feeling better. Patient states symptoms have improved. Vital Signs: 13:47 BP 140 / 88; Pulse 68; Resp 22 S; Temp 98.2(O); Pulse Ox 97% on R/A; Weight 92.53 kg; hb Height 5 ft. 7 in. ; Pain 8/10; 14:52 BP 109 / 69; Pulse 65; Resp 18; Pulse Ox 98% on R/A; mb9 16:01 BP 120 / 75; Pulse 74; Resp 16; Pulse Ox 98% on R/A; mb9 13:47 Body Mass Index 31.95 (92.53 kg, 170.18 cm) hb 13:47 Pain Scale: Adult hb ED Course: 13:37 Patient arrived in ED. im 13:41 Nitin Ludwig DO is Attending Physician. ms3 13:45 Brenda Randolph RN is Primary Nurse. mb9 13:48 Triage completed. hb 13:48 Arm band placed on. hb 13:53 Placed in gown. Bed in low position. Call light in reach. Side rails up X 1. Client mb9 placed on continuous cardiac and pulse oximetry monitoring. NIBP monitoring applied. general internist and physician leader on. 13:53 EKG done, by ED staff, reviewed by Nitin Ludwig DO. mb9 14:00 No provider procedures requiring assistance completed. Inserted saline lock: 22 gauge mb9 in right forearm, using aseptic technique. 14:15 Basic Metabolic Panel Sent. mb9 14:15 CBC with Diff Sent. mb9 14:15 D-Dimer Sent. mb9 14:15 LFT's Sent. mb9 14:15 Magnesium Sent. mb9 14:15 Troponin HS Sent. mb9 14:31 XRAY Chest (1 view) In Process Unspecified. EDMS 16:01 IV discontinued, intact, bleeding controlled, No redness/swelling at site. Pressure mb9 dressing applied. Administered Medications: 14:10 Drug: Albuterol Inhalation 2.5 mg Route: Inhalation; mb9 14:16 Drug: Aspirin PO Chewable Tablet 324 mg Route: PO; mb9 15:00 Follow up: Response: No adverse reaction mb9 14:30 Drug: Albuterol Inhalation 2.5 mg Route: Inhalation; mb9 14:50 Drug: Albuterol Inhalation 2.5 mg Route: Inhalation; mb9 Medication: 13:53 VIS not applicable for this client. mb9 Outcome: 15:45 Discharge ordered by . ms3 16:01 Discharged to home ambulatory. mb9 16:01 Condition: stable 16:01 Discharge instructions given to patient, Instructed on discharge instructions, follow up and referral plans. Demonstrated understanding of instructions, follow-up care, medications, Prescriptions given X 3. 16:01 Patient left the ED. mb9 Signatures: Dispatcher [employer] EDMS Vikki Hewitt, RN RN Nitin Logan DO DO ms3 Brenda Randolph RN RN mb9 Brittany Meraz Corrections: (The following items were deleted from the chart) 15:01 14:52 Pulse 65bpm; Resp 18bpm; Pulse Ox 98% RA; mb9 mb9
--- NOTE | 2023-04-28 15:46 | EDPHYS ---
Physician Documentation [facility] Name: Keesha Pedroza Age: 53 yrs Sex: Female : 1970 Arrival Date: 04/28/2023 Time: 13:32 Bed 13 Private MD: ED Physician Nitin Ludwig HPI: 04/28 14:28 This 53 yrs old Female presents to ER via Ambulatory with complaints of Shortness Of ms3 Breath. 14:28 53-year-old female with past medical history of anemia, asthma, bronchitis, COPD, ms3 headaches, hypothyroidism presents for hurting in her lungs that has been ongoing for 3 days. Patient states the discomfort is a 4/10 and described as cramping in her lower rib cage. Patient states sitting up improves the discomfort and laying flat makes the discomfort worse. Patient denies nausea, vomiting, fevers, chills. Patient endorses cough. Patient states she recently lost her insurance and has been out of her medications, levothyroxine, Silvia statin, albuterol.. 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 - Social history:: Smoking status: . ROS: 14:28 Constitutional: Negative for fever, and chills. Neck: Negative for injury, pain, and ms3 swelling, Cardiovascular: Negative for chest pain, and palpitations. 14:28 Abdomen/GI: Negative for abdominal pain, nausea, vomiting, diarrhea, and constipation, MS/Extremity: Negative for injury and deformity, Skin: Negative for injury, rash, and discoloration. 14:28 Respiratory: Positive for cough, shortness of breath. 14:28 All other systems are negative. Exam: 14:28 Constitutional: This is a well developed, well nourished patient who is awake, alert, ms3 and in no acute distress. Head/Face: Normocephalic, atraumatic. Neck: Trachea midline, no cervical lymphadenopathy. Supple, full range of motion without nuchal rigidity, or vertebral point tenderness. No Meningismus. Chest/axilla: Normal chest wall appearance and motion. Nontender with no deformity. Cardiovascular: Regular rate and rhythm with a normal S1 and S2. No gallops, murmurs, or rubs. Normal PMI, no JVD. No pulse deficits. Respiratory: Lungs have equal breath sounds bilaterally, clear to auscultation and percussion. No rales, rhonchi or wheezes noted. No increased work of breathing, no retractions or nasal flaring. Abdomen/GI: Soft, non-tender, with normal bowel sounds. No distension or tympany. No guarding or rebound. No evidence of tenderness throughout. Skin: Warm, dry with normal turgor. Normal color with no rashes, no lesions, and no evidence of cellulitis. MS/ Extremity: Pulses equal, no cyanosis. Neurovascular intact. Full, normal range of motion. 15:35 ECG was reviewed by the Attending Physician. ms3 Vital Signs: 13:47 BP 140 / 88; Pulse 68; Resp 22 S; Temp 98.2(O); Pulse Ox 97% on R/A; Weight 92.53 kg; hb Height 5 ft. 7 in. ; Pain 8/10; 14:52 BP 109 / 69; Pulse 65; Resp 18; Pulse Ox 98% on R/A; mb9 16:01 BP 120 / 75; Pulse 74; Resp 16; Pulse Ox 98% on R/A; mb9 13:47 Body Mass Index 31.95 (92.53 kg, 170.18 cm) hb 13:47 Pain Scale: Adult hb MDM: 14:02 Patient medically screened. ms3 14:28 Differential diagnosis: asthma, Chronic Obstructive Pulmonary Disease Myocardial ms3 Infarction pneumonia, pulmonary edema, Pulmonary Embolism. 15:48 Data reviewed: vital signs, nurses notes, lab test result(s), EKG, radiologic studies, ms3 and as a result, I will discharge patient. Consideration of Admission/Observation Escalation of care including admission/observation considered. Troponin negative, symptoms have improved. I considered the following discharge prescriptions or medication management in the emergency department Medications were administered in the Emergency Department. See MAR. Independent interpretation of the following test(s) in the Emergency Department EKG: See my EKG interpretation above X-Ray: My interpretation is CXR image reviewed by me does not show infiltrates.. Care significantly affected by the following chronic conditions: Chronic Obstructive Pulmonary Disease. Counseling: I had a detailed discussion with the patient and/or guardian regarding the historical points, exam findings, and any diagnostic results supporting the discharge/admit diagnosis, lab results, radiology results, the need for outpatient follow up, to return to the emergency department if symptoms worsen or persist or if there are any questions or concerns that arise at home, smoking cessation. Response to treatment: the patient's symptoms have markedly improved after treatment, and as a result, I will discharge patient. Special discussion: Based on the patient's history, exam, and Dx evaluation, there is no indication for emergent intervention or inpatient Tx. It is understood by the patient/guardian that if the Sx's persist or worsen they need to return immediately for re-evaluation. ED course: Discussed smoking cessation with patient, labs, chest x-ray, EKG. Patient to follow-up with primary care physician in 2 to 3 days. Patient states she is out of her levothyroxine, Rosuvastatin, and nebulized albuterol. Prescriptions were supplied to patient. Patient understands and agrees with plan. All questions were answered. Return precautions discussed include worsening symptoms, or any other concerns. On reevaluation patient is alert and oriented x4, no apparent distress, nontoxic-appearing, speaking full sentences. 04/28 13:55 Order name: Basic Metabolic Panel; Complete Time: 15:05 ms3 04/28 13:55 Order name: CBC with Diff; Complete Time: 15:05 ms3 04/28 13:55 Order name: D-Dimer; Complete Time: 15:05 ms3 04/28 13:55 Order name: LFT's; Complete Time: 15:05 ms3 04/28 13:55 Order name: Magnesium; Complete Time: 15:05 ms3 04/28 13:55 Order name: Troponin HS; Complete Time: 15:05 ms3 04/28 13:55 Order name: XRAY Chest (1 view); Complete Time: 15:05 ms3 04/28 13:55 Order name: EKG; Complete Time: 13:56 ms3 04/28 13:55 Order name: Cardiac monitoring; Complete Time: 14:15 ms3 04/28 13:55 Order name: EKG - Nurse/Tech; Complete Time: 14:15 ms3 04/28 13:55 Order name: IV Saline Lock; Complete Time: 14:15 ms3 04/28 13:55 Order name: Labs collected and sent; Complete Time: 14:15 ms3 04/28 13:55 Order name: O2 Per Protocol; Complete Time: 14:15 ms3 04/28 13:55 Order name: O2 Sat Monitoring; Complete Time: 14:15 ms3 EC:35 Rate is 65 beats/min. Rhythm is regular. QRS [place] is Normal. [place] interval is normal. QRS ms3 interval is normal. Clinical impression: NSR w/ Non-specific ST/T Changes. Interpreted by me. Reviewed by me. Administered Medications: 14:10 Drug: Albuterol Inhalation 2.5 mg Route: Inhalation; mb9 14:16 Drug: Aspirin PO Chewable Tablet 324 mg Route: PO; mb9 15:00 Follow up: Response: No adverse reaction mb9 14:30 Drug: Albuterol Inhalation 2.5 mg Route: Inhalation; mb9 14:50 Drug: Albuterol Inhalation 2.5 mg Route: Inhalation; mb9 Disposition Summary: 04/28/23 15:45 Discharge Ordered Location: Home ms3 Condition: Stable ms3 Diagnosis - Cough ms3 - Shortness of breath ms3 - Chest pain, unspecified ms3 Followup: ms3 - With: Private Physician - When: 2 - 3 days - Reason: Recheck today's complaints Discharge Instructions: - Discharge Summary Sheet ms3 - Nonspecific Chest Pain, Adult ms3 - Cough, Adult ms3 Forms: - Medication Reconciliation Form ms3 - Thank You Letter ms3 - Antibiotic Education ms3 - Prescription Opioid Use ms3 - Patient Portal Instructions ms3 - Leadership Thank You Letter ms3 Prescriptions: - levothyroxine 200 mcg Oral tablet - take 1 tablet by ORAL route daily; 30 tablet; Refills: 0, Product Selection ms3 Permitted - rosuvastatin 20 mg Oral tablet - take 1 tablet by ORAL route daily; 30 tablet; Refills: 0, Product Selection ms3 Permitted - Albuterol Sulfate 2.5 mg /3 mL (0.083 %) Inhalation Solution for Nebulization - inhale 1 unit by NEBULIZATION route every 8 hours As needed; 25 Pack; Refills: ms3 0, Product Selection Permitted Signatures: Dispatcher [employer] Vikki Wolff RN RN hb Sims, Marcus, DO DO ms3 Brenda Randolph RN RN mb9
[2023-04-28 16:50] VITALS: TEMP 98.2
[2023-04-28 16:51] VITALS: O2SAT 98
[2023-04-28 16:52] VITALS: BP 120/75
--- NOTE | 2023-05-01 19:12 | EKG ---
Test Date: 2023-04-28 Test Time: 13:53:27 Chart Clerk: MEASUREMENT RESULTS: Intervals: Rate: 65 PA: 162 QRSD: 86 QT: 422 QTc: 438 [place]: P: 67 PA: 162 QRS: 79 T: 10 INTERPRETIVE STATEMENTS: Normal sinus rhythm Nonspecific T wave abnormality Abnormal ECG Compared to ECG 06/04/2021 22:50:45 T-wave abnormality now present Sinus bradycardia no longer present Myocardial infarct finding no longer present Electronically Signed On 05-01-23 19:07:50 CDT by Juan Babcock
== END 2023-04-28 16:01 | disposition home or self-care (01) ==
LOC: ER 13:32
DX: R06.02 Shortness of breath (principal); R05.9 Cough, unspecified; R07.9 Chest pain, unspecified
CPT/HCPCS: 36415; 71045; 80048; 80076; 83735; 84484; 85025; 85379; 93005; 99285; J7613

== ENCOUNTER 2023-11-18 14:16 | Emergency (ER) | payer OTHER, SELFPAY ==
--- OUTSIDE RECORDS SUMMARY | 2023-11-18 14:19 | XMS REPORT | Continuity of Care Document ---
Author Name Unknown Address [address] [facility] [address] [place] [address] [facility] thconnect Address [address] [facility] [address] [place] [address] Care Team Providers Care Filter Washer Name Role Phone Es Palma MD Primary Care Physician [phone] Es Palma MD Attending Clinician + [phone] Clive Brown MD Attending Clinician [phone] DEJA JIMÉNEZ Attending Clinician Unavailab ES Jaime Attending Clinician UnavailDeja Cabrera Attending Clinician + [phone] Doctor Unassigned, [place] Attending Clinician U navailable Lab, Ang - Db Attending Clinician Unavailable Payers Payer Name Policy Type Policy Number Effective Date Expirati on Date Source Problems Condition Name Condition Details Condition Category Status Onset Date Resolution Date Last Treatment Date Treating Clinician Comments Source Obesity (BMI 30-39.9) Obesity (BMI 30-39.9) Disease Active 2020-08 00:00: 00 [facility] Dysuria Dysuria Disease Active 2020-08 00:00: 00 [facility] Screening examinatio n for STD (sexually transmitte d disease) Screening examinatio n for STD (sexually transmitte d disease) Disease Active 2020-08 00:00: 00 [facility] Encounter for surveillan ce of other contracept sukhwinder Encounter for surveillan ce of other contracept sukhwinder Disease Active 2020-08 00:00: 00 [facility] Irregular menstrual cycle Irregular menstrual cycle Disease Active 2020-08 00:00: 00 [facility] Vitamin D deficiency Vitamin D deficiency Disease Active 2020-08 00:00: 00 [facility] B12 deficiency (suboptima l level <400) B12 deficiency (suboptima l level <400) Disease Active 2020-08 00:00: 00 [facility] Iron deficiency anemia, unspecifie d iron deficiency anemia type Iron deficiency anemia, unspecifie d iron deficiency anemia type Disease Active 2020-08 00:00: 00 [facility] Hyperchole sterolemia Hyperchole sterolemia Disease Active 2020-08 00:00: 00 [facility] Abnormal liver function test Abnormal liver function test Disease Active 2020-08 00:00: 00 [facility] Acquired hypothyroi dism Acquired hypothyroi dism Disease Active 2020-08 00:00: 00 Overview: Formattin g of this note might be different from the original. Diagnosed ~2018 [facility] COPD with asthma COPD with asthma Disease Active 2020-08 00:00: 00 [facility] History of seizures History of seizures Disease Active 2020-08 00:00: 00 Overview: Formattin g of this note might be different from the original. No seizures since 2018 [facility] Menorrhagi a Menorrhagi a Disease Active 2020-08 00:00: 00 [facility] Tobacco dependence Tobacco dependence Disease Active 2020-08 00:00: 00 [facility] COVID-19 COVID-19 Disease Active 2020-08 0 00:00: 00 [facility] Allergies, Adverse Reactions, Alerts Allergy Name Allergy Type Status Severity Reaction(s) Onset Date Inactive Date Treating Clinician Comments Source NO KNOWN ALLERGIE S Drug Class Active [facility] Social History Social Habit Start Date Stop Date Quantity Comments Source Exposure to SARS-CoV-2 (event) Not sure [facility] Alcohol intake 2021-08-11 00:00:00 2021-08-11 00:00:00 Ex-drinker (finding) [facility] Tobacco use and exposure 2021-06-18 00:00:00 2021-06-18 00:00:00 Never used [facility] Sex Assigned At 1970 00:00:00 1970 00:00:00 [facility] Smoking Status Start Date Stop Date Source Current every day smoker 2021-06-18 00:00:00 [facility] Medications Ordered Medication Name Filled Medication Name Start Date Stop Date Current Medication? Ordering Clinician Indication Dosage Frequency Signature (SIG) Comments Components Source ALBUTEROL NEB 0.083% 03-29 00:00: 00 No TAKE 1 TABLET 3 TIMES DAILY WITH FOOD NEEDED. 02-20 00:00: 00 No 800 TAKE 1 TABLET 3 TIMES DAILY WITH FOOD NEEDED. 02-15 00:00: 00 No 800 levothyroxi ne 200 mcg tablet 01-25 00:00: 00 No 1mcg ProAir HFA 90 mcg/actuati on aerosol inhaler 01-24 00:00: 00 No 2mcg/ac tuation rosuvastati n 10 mg tablet 01-24 00:00: 00 No 1mg levothyroxi ne 200 mcg tablet 01-24 00:00: 00 No 1mcg albuterol sulfate 1.25 mg/3 mL solution for nebulizatio n 01-24 00:00: 00 No 3mg/3 mL VENTOLIN HFA 90 mcg/actuati on inhaler 11-18 00:00: 00 Yes [id number] INHALE 2 PUFFS BY MOUTH EVERY 6 HOURS NEEDED FOR WHEEZING OR SHORTNESS OF BREATHE. [facility] ALBUTEROL 2.5 mg /3 mL (0.083 %) nebulizer solution 11-16 00:00: 00 Yes [id number] USE 3 ML VIA NEBULIZER FOUR TIMES DAILY [facility] VENTOLIN HFA 90 mcg/actuati on inhaler 1- 00:00: 00 11-18 00:00 :00 No [id number] INHALE 2 PUFFS BY MOUTH EVERY 6 HOURS NEEDED FOR WHEEZING OR SHORTNESS OF BREATHE. [facility] ALBUTEROL 2.5 mg /3 mL (0.083 %) nebulizer solution 08-26 00:00: 00 11-16 00:00 :00 No [id number] USE 3 ML VIA NEBULIZER FOUR TIMES DAILY [facility] rosuvastati n 10 mg tablet 2020-08 00:00: 00 Yes 626 10mg Take 1 tablet by mouth at bedtime. Indication s: high cholestero l [facility] Ferrous Fumarate 324 mg (106 mg iron) Tab 2020-08 00:00: 00 Yes 713 1{tbl} Take 1 tablet by mouth daily. Take with a source of vitamin C. Indication s: anemia from inadequate iron [facility] Cholecalcif cassie, Vitamin D3, (D3-2000) 50 mcg (2,000 unit) capsule 2020-08 00:00: 00 Yes [id number] 2000U Take 1 capsule by mouth daily. Take with food. [facility] vitamin B-12 (VITAMIN B-12) 500 mcg tablet 2020-08 00:00: 00 Yes [id number] 500ug Take 1 tablet by mouth daily. [facility] levothyroxi ne 200 mcg tablet 2020-08 00:00: 00 Yes [id number] 200ug Take 1 tablet by mouth every morning. [facility] albuterol 90 mcg/actuati on inhaler 2020-08 00:00: 00 09-08 00:00 :00 No [id number] 2{puff} Inhale 2 Puffs every 6 (six) hours as needed for Wheezing or Shortness of Breath. [facility] albuterol 2.5 mg /3 mL (0.083 %) nebulizer solution 2020-08 00:00: 00 08-24 00:00 :00 No [id number] 2.5mg Inhale 3 mL 4 (four) times daily. [facility] Vital Signs Vital Name Observation Time Observation Value Comments Sergio martinez Systolic blood pressure 2021-08-11 21:09:00 135 mm[Hg] [place] [facility] Diastolic blood pressure 2021-08-11 21:09:00 74 mm[Hg] [place] [facility] Heart rate 2021-08-11 21:09:00 85 /min [facility] Body temperature 2021-08-11 21:09:00 36.22 [facility] Respiratory rate 2021-08-11 21:09:00 20 /min [facility] Body height 2021-08-11 21:09:00 170.2 cm General [...] Procedures Procedure Date / Time Performed Performing Clinicia n Source POCT URINALYSIS W/O SPECIFIC GRAVITY 2021-08-11 00:00:00 Deja Jiménez [facility] Plan of Care Planned Activity Planned Date Details Comments Source Goal Plan of Care Note [code = 75325-0] Goal Plan of Care Note [code = 64623-2] Goal Plan of Care Note [code = 33047-5] Goal Plan of Care Note [code = 69232-6] Goal Plan of Care Note [code = 50054-7] Goal Plan of Care Note [code = 59894-8] Goal Plan of Care Note [code = 96341-7] Goal Plan of Care Note [code = 80945-3] Goal Plan of Care Note [code = 12823-4] Goal Plan of Care Note [code = 01432-0] Goal Plan of Care Note [code = 52809-1] Goal Plan of Care Note [code = 66374-6] Goal Plan of Care Note [code = 70381-9] Goal Plan of Care Note [code = 97409-9] Goal Plan of Care Note [code = 72023-3] Goal Plan of Care Note [code = 91299-2] Goal Plan of Care Note [code = 56419-9] Goal Plan of Care Note [code = 48013-7] Goal Plan of Care Note [code = 23606-9] Goal Plan of Care Note [code = 40910-3] Goal Plan of Care Note [code = 69046-0] Goal Plan of Care Note [code = 01469-6] Goal Plan of Care Note [code = 85225-3] Goal Plan of Care Note [code = 96515-3] Goal Plan of Care Note [code = 69393-3] Goal Plan of Care Note [code = 43310-8] Encounters Start Date/Time End Date/Time Encounter Type Admission Type Attending Clinicians Care Facility Care Department Encounter ID Source 2023-11-07 14:08:55 2023-11-07 14:08:55 Outpatient S[facility] S[facility] [id number] Sergei Herrera 2023-08-30 10:17:34 2023-08-30 10:17:34 Outpatient SFA SFA [id number] Sergei Herrera 2023-03-20 14:39:55 2023-03-20 14:39:55 Outpatient SFA SFA [id number] Sergei Herrera 2022-12-26 09:53:27 2022-12-26 09:53:27 Outpatient SFA SFA [id number] Sergei Herrera 2022-12-22 11:01:00 2022-12-22 11:01:00 Outpatient SFA SFA [id number] Sergei Herrera 2022-10-19 10:14:43 2022-10-19 10:14:43 Outpatient SFA SFA [id number] Sergei Herrera 2022-09-05 08:02:41 2022-09-05 08:02:41 Outpatient SFA SFA [id number] Sergei Herrera 2022-08-30 15:38:19 2022-08-30 15:38:19 Outpatient SFA SFA [id number] Sergei Herrera 2022-08-30 00:00:00 2022-08-30 00:00:00 Outpatient Visit [id number] 2022-02-15 00:00:00 2022-02-15 00:00:00 Outpatient Visit [id number] 2021-12-30 00:00:00 2021-12-30 00:00:00 Es Ceron [facility] 1.2.840.114 350.1.13.10 4.2.7.2.686 [id number] [facility] 2021-12-21 00:00:00 2021-12-21 00:00:00 [facility] 1.2.840.114 350.1.13.10 4.2.7.2.686 [id number] [facility] 2021-11-18 00:00:00 2021-11-18 00:00:[address] [facility] 1.2.840.114 350.1.13.10 4.2.7.2.686 [id number] [facility] 2021-11-18 00:00:00 2021-11-18 00:00:[address] [facility] 1.2.840.114 350.1.13.10 4.2.7.2.686 [id number] [facility] 2021-11-15 00:00:00 2021-11-15 00:00:00 [facility] 1.2.840.114 350.1.13.10 4.2.7.2.686 [id number] [facility] 2021-10-27 13:40:00 2021-10-27 13:40:00 Outpatient DEJA MELGAR [facility] RAD [id number] [facility] 2021-10-08 10:00:00 2021-10-08 10:00:00 Outpatient ES EMERSON [facility] [id number] [facility] 2021-10-01 00:00:00 2021-10-01 00:00:00 Outpatient DEJA MELGAR [facility] [id number] [facility] 2021-09-10 08:45:00 2021-09-10 08:45:00 Outpatient R ES PALMA [facility] [id number] [facility] 2021-09-08 00:00:00 2021-09-08 00:00:00 Refill Es Palma [facility] 1..840.114 350.1.13.10 4.2.7.2.686 [id number] [facility] 2021-08-24 00:00:00 2021-08-24 00:00:00 Refill Es Palma [facility] 1..840.114 350.1.13.10 4.2.7.2.686 [id number] [facility] 2021-08-11 15:15:00 2021-08-11 15:57:54 Outpatient R DEJA JIMÉNEZ [facility] [id number] [facility] 2021-08-11 15:15:00 2021-08-11 15:57:54 Office Visit Deja Jiménez [facility] MARITIME ENGINEER [facility] 1..840.114 350.1.13.10 4.2.7.2.686 [id number] [facility] 2021-08-11 15:15:00 2021-08-11 15:57:54 Outpatient R DEJA JIMÉNEZ [facility] [id number] [facility] 2021-08-11 00:00:00 2021-08-11 00:00:00 Orders Only Doctor Unassigned, [place] [facility] 1..840.114 350.1.13.10 4.2.7.2.686 [id number] [facility] 2021-06-30 00:00:00 2021-06-30 00:00:00 Orders Only Doctor Unassigned, [place] [id number] 350.1.13.10 4.2.7.2.686 [id number] [facility] 2021-06-24 00:00:00 2021-06-24 00:00:[address] [facility] 1.2840.114 350.1.13.10 4.2.7.2.686 [id number] [facility] 2021-06-22 00:00:00 2021-06-22 00:00:00 Telephone [facility] 1.2840.114 350.1.13.10 4.2.7.2.686 [id number] [facility] 2021-06-21 00:00:00 2021-06-21 00:00:00 Telephone [facility] 1.2840.114 350.1.13.10 4.2.7.2.686 [id number] [facility] 2021-06-19 00:00:00 2021-06-19 00:00:[address] [facility] 1.2840.114 350.1.13.10 4.2.7.2.686 [id number] [facility] 2021-06-18 11:00:00 2021-06-18 11:00:00 Outpatient R LOUIE ARBENHUNTER [facility] [id number] [facility] 2021-06-18 10:00:57 2021-06-18 10:13:18 Metal Neutralizer Visit Lab, Ang - Db [place] [facility] 1.2840.114 350.1.13.10 4.2.7.2.686 [id number] [facility] 2021-06-18 10:00:57 2021-06-18 10:13:18 Metal Neutralizer Visit Lab, Jesse Rodriguez Es Palma [facility] 1.2.840.114 350.1.13.10 4.2.7.2.686 [id number] [facility] 2021-06-18 09:08:09 2021-06-18 09:53:07 Office Visit Es Palma [facility] 1.2.840.114 350.1.13.10 4.2.7.2.686 [id number] [facility] 2021-06-18 09:00:00 2021-06-18 09:53:07 Outpatient R ARBEN PALMAELIEZER [facility] [id number] [facility] 2021-06-18 00:00:00 2021-06-18 00:00:00 Orders Only Doctor Unassigned, [place] [facility] 1.2.840.114 350.1.13.10 4.2.7.2.686 [id number] [facility] Results Test Description Test Time Test Comments Results Result Co mments Source COMPREHENSIVE METABOLIC [id number] 06:00:17* Test Item Value Reference Range Interpretation Comme nts GLUCOSE (test code = 2217) 102 MG/DL 70-99 H BUN (test code = 2208) 9 MG/DL 6-20 CREATININE (test code = 2214) 0.95 MG/DL 0.60-1.30 eGFR (2020 CKD-EPI) (test co de = 69478) 72 ML/MIN/1.73 >60 CALC BUN/CREAT (test code = 2235) 9 RATIO 6-28 SODIUM (test code = 2231) 140 MEQ/L 133-146 POTASSIUM (test code = 2228) 4.3 MEQ/L 3.5-5.4 CHLORIDE (test code = 2215) 98 MEQ/L 95-107 CARBON DIOXIDE (test code = 6) 25 MEQ/L 19-31 CALCIUM (test code = 2208) 9.6 MG/DL 8.5-10.5 PROTEIN, TOTAL (test code = 2229) 8.0 G/DL 6.1-8.3 ALBUMIN (test code = 1) 5.2 G/DL 3.5-5.2 CALC GLOBULIN (test code = 2240) 2.8 G/DL 1.9-3.7 CALC A/G RATIO (test code = 223) 1.9 RATIO 1.0-2.6 BILIRUBIN, TOTAL (test code = 2206) 0.4 MG/DL <=1.2 ALKALINE PHOSPHATASE (test code = 2203) 75 U/L 40-132 AST (test code = 2217) 44 U/L 9-40 H ALT (test code = 2218) 18 U/L 5-40 TSH, THIRD [id number] 05:21:57* Test Item Value Reference Range Interpretation Comme [facility] TSH, THIRD GENERATION (test code = 2821) >100.000 UIU/ML 0.400-4.100 H UNLESS OTHERWISE INDICATED, ALL TESTING PERFORMED AT [facility] [address] [place] [address] SEISMIC INTERPRETER: ROCIO SOTO M.D. CLIA NUMBER [id number] [place]. [id number] HEMOGLOBIN [id number] 04:47:12* Test Item Value Reference Range Interpretation Comme [facility] HEMOGLOBIN A1c (test code = 51825) 5.7 % 4.2-5.6 H [employer] GUIDELINES FOR HGB A1C: PREDIABETES/INCREASED RISK . . . . . . . 5.7-6.4% DIAGNOSIS OF DIABETES . . . . . . . . . >=6.5% WITH CONFIRMATION OR APPROPRIATE SYMPTOMS NOTE: ASSAY MAY BE AFFECTED BY HEMOGLOBINOPATHIES (SICKLE CELL ANEMIA, S-C DISEASE, OTHERS) OR ARTIFICIALLY LOWERED BY DECREASED RED CELL SURVIVAL (HEMOLYTIC ANEMIAS, BLOOD LOSS, ETC.). CONSIDER ALTERNATE TESTING OR LABORATORY CONSULTATION. OCCULT BLD,FECAL,IMMUNOASSAY [id number] 11:26:24* Test Item Value Reference Range Interpretation Comme nts OCCULT BLD, FECAL (test code = 19676) NEGATIVE NEGATIVE CPL has important pathology staff changes effective 10/12/2022. New pathology staff will provide uninterrupted, excellent patient care and clinical consultation. See URL: [email or web address] UNLESS OTHERWISE INDICATED, ALL TESTING PERFORMED AT [facility] [address] [place] [id number] SEISMIC INTERPRETER: ROCIO SOTO M.D. CLIA NUMBER [id number] [facility] [place]. [id number] TSH, THIRD [id number] 08:52:55* Test Item Value Reference Range Interpretation Comme nts TSH, THIRD GENERATION (test code = 2821) 0.446 UIU/ML 0.400-4.100 LIPID [id number] 06:45:32* Test Item Value Reference Range Interpretation Comme nts CHOLESTEROL (test code = 2210) 143 MG/DL <200 TRIGLYCERIDES (test code = 2232) 176 MG/DL <150 H HDL CHOLESTEROL (test code = 2220) 37 MG/DL >39 L CALC LDL CHOL (test code = 2237) 79 MG/DL <100 NOTE: CALCULATED LDL IS BASED ON SVETLANA-GREER METHOD WHICHINCLUDES ADJUSTABLE TRIGLYCERIDE:VLDL CHOLESTEROL RATIO.THIS FACTOR VARIES BY MEASURED TRIGLYCERIDE AND NON-HDLCHOLESTEROL CONCENTRATIONS WITH INCREASED CALCULATED LDL SEENIN HIGHER TRIGLYCERIDE OR LOWER NON-HDL SPECIMENS. FOR MOREINFORMATION, SEE CLIENT ANNOUNCEMENT AT [email or web address] [email or web address] RATIO LDL/HDL (test code = 2238) 2.14 RATIO <3.22 COMPREHENSIVE METABOLIC [id number] 06:45:32* Test Item Value Reference Range Interpretation Comme nts GLUCOSE (test code = 2217) 98 MG/DL 70-99 BUN (test code = 2208) 9 MG/DL 6-20 CREATININE (test code = 2214) 0.61 MG/DL 0.60-1.30 eGFR (2020 CKD-EPI) (test code = 58017) 108 ML/MIN/1.73 >60 CALC BUN/CREAT (test code = 2235) 15 RATIO 6-28 SODIUM (test code = 223) 141 MEQ/L 133-146 POTASSIUM (test code = 2228) 4.1 MEQ/L 3.5-5.4 CHLORIDE (test code = 2215) 102 MEQ/L 95-107 CARBON DIOXIDE (test code = 2206) 23 MEQ/L 19-31 CALCIUM (test code = 2208) 9.6 MG/DL 8.5-10.5 PROTEIN, TOTAL (test code = 2229) 7.6 G/DL 6.1-8.3 ALBUMIN (test code = 2201) 4.7 G/DL 3.5-5.2 CALC GLOBULIN (test code = 2240) 2.9 G/DL 1.9-3.7 CALC A/G RATIO (test code = 223) 1.6 RATIO 1.0-2.6 BILIRUBIN, TOTAL (test code = 7) 0.4 MG/DL See_Comment [Automated me ssage] The system which generated this result transmitted reference range: <=1.2. The reference range was not used to interpret this result as normal/abnormal. ALKALINE PHOSPHATASE (test code = 2203) 107 U/L 40-130 AST (test code = 8) 13 U/L 9-40 ALT (test code = 2218) 12 U/L 5-40 HEMOGLOBIN [id number] 02:49:41* Test Item Value Reference Range Interpretation Comme nts HEMOGLOBIN A1c (test code = 89461) 5.7 % 4.2-5.6 H UNLESS OTHERWISE INDICATED, ALL TESTING PERFORMED [facility] [address] [place] [address] SEISMIC INTERPRETER: MADIE CHAIDEZ M.D. CLIA NUMBER [id number] [place]. [id number] TSH, THIRD [id number] 09:45:16* Test Item Value Reference Range Interpretation Comme nts TSH, THIRD GENERATION (test code = 2821) 5.950 UIU/ML 0.400-4.100 H UNLESS OTHERWISE INDICATED, ALL TESTING PERFORMED [facility] [address] [place] [address] SEISMIC INTERPRETER: MADIE CHAIDEZ M.D. CLIA NUMBER [id number] [place]. [id number] LIPID [id number] 06:03:19* Test Item Value Reference Range Interpretation Comme nts CHOLESTEROL (test code = 2210) 256 MG/DL <200 H TRIGLYCERIDES (test code = 2232) 223 MG/DL <150 H HDL CHOLESTEROL (test code = 2220) 37 MG/DL >39 L CALC LDL CHOL (test code = 2236) 181 MG/DL <100 H NOTE: CALCULATED LDL IS BASED ON SVETLANA-GREER METHOD WHICHINCLUDES ADJUSTABLE TRIGLYCERIDE:VLDL CHOLESTEROL RATIO.THIS FACTOR VARIES BY MEASURED TRIGLYCERIDE AND NON-HDLCHOLESTEROL CONCENTRATIONS WITH INCREASED CALCULATED LDL SEENIN HIGHER TRIGLYCERIDE OR LOWER NON-HDL SPECIMENS. FOR MOREINFORMATION, SEE CLIENT ANNOUNCEMENT AT [email or web address] RISK RATIO LDL/HDL (test code = 2237) 4.89 RATIO <3.22 H COMPREHENSIVE METABOLIC [id number] 06:03:19* Test Item Value Reference Range Interpretation Comme nts GLUCOSE (test code = 2216) 105 MG/DL 70-99 H BUN (test code = 2207) 8 MG/DL 6-20 CREATININE (test code = 221) 0.66 MG/DL 0.60-1.30 eGFR (2020 CKD-EPI) (test code = 59344) 107 ML/MIN/1.73 >60 CALC BUN/CREAT (test code = 5) 12 RATIO 6-28 SODIUM (test code = 223) 139 MEQ/L 133-146 POTASSIUM (test code = 2228) 4.6 MEQ/L 3.5-5.4 CHLORIDE (test code = 2215) 102 MEQ/L 95-107 CARBON DIOXIDE (test code = 6) 26 MEQ/L 19-31 CALCIUM (test code = 2209) 9.8 MG/DL 8.5-10.5 PROTEIN, TOTAL (test code = 2228) 7.7 G/DL 6.1-8.3 ALBUMIN (test code = 2200) 4.5 G/DL 3.5-5.2 CALC GLOBULIN (test code = 2240) 3.2 G/DL 1.9-3.7 CALC A/G RATIO (test code = 223) 1.4 RATIO 1.0-2.6 BILIRUBIN, TOTAL (test code = 2206) 0.3 MG/DL See_Comment [Automated me ssage] The system which generated this result transmitted reference range: <=1.2. The reference range was not used to interpret this result as normal/abnormal. ALKALINE PHOSPHATASE (test code = 2203) 102 U/L 40-128 AST (test code = 2218) 44 U/L 9-40 H ALT (test code = 2219) 27 U/L 5-40 HEMOGLOBIN [id number] 06:03:15* Test Item Value Reference Range Interpretation Comme nts HEMOGLOBIN A1c (test code = 98804) 6.0 % 4.2-5.6 H CBC W/AUTO DIFF WITH [id number] 05:24:42* Test Item Value Reference Range Interpretation Comme nts WBC (test code = 1001) 6.6 K/UL 3.5-11.0 RBC (test code = 1002) 4.78 M/UL 3.80-5.40 HEMOGLOBIN (test code = 1003) 13.1 G/DL 11.5-15.5 HEMATOCRIT (test code = 1004) 40.8 % 34.0-45.0 MCV (test code = 1005) 85.4 fL 80.0-99.0 MCH (test code = 1006) 27.4 PG 25.0-33.0 MCHC (test code = 1007) 32.1 G/DL 31.0-36.0 RDW (test code = 1038) 15.2 % 11.5-15.0 H NEUTROPHILS (test code = 1008) 60.7 % LYMPHOCYTES (test code = 1010) 27.6 % MONOCYTES (test code = 1011) 6.7 % EOSINOPHILS (test code = 1012) 3.4 % BASOPHILS (test code = 1013) 1.4 % IMMATURE GRANULOCYTES (test code = 1036) 0.2 % NUCLEATED RBCS (test code = 1065) 0.0 /100 WBC'S See_Comment [Automated REVSharea ge] The system which generated this result transmitted reference range: 0.0. The reference range was not used to interpret this result as normal/abnormal. PLATELET COUNT (test code = 1015) 267 K/UL 130-400 ABSOLUTE NEUTROPHILS (test code = 1066) 3.98 K/UL 1.50-7.50 ABSOLUTE LYMPHOCYTES (test code = 1067) 1.81 K/UL 1.00-4.00 ABSOLUTE MONOCYTES (test code = 1068) 0.44 K/UL 0.20-1.00 ABSOLUTE EOSINOPHILS (test code = 1040) 0.22 K/UL 0.00-0.50 ABSOLUTE BASOPHILS (test code = 1069) 0.09 K/UL 0.00-0.20 ABS IMMATURE GRANULOCYTES (test code = 1020) 0.01 K/UL 0.00-0.10 ABS NUCLEATED RBCS (test code = 60611) 0.00 K/UL 0.00-0.11 CBC W/AUTO [id number] 00:00:00* Test Item Value Reference Range Interpretation Comme nts WBC (test code = 1001) 6.6 K/UL [...] = 1013) 1.4 % IMMATURE GRANULOCYTES (test code = 1036) 0.2 % NUCLEATED RBCS (test code = 1065) 0.0 /100WBC'S PLATELET COUNT (test code = 1015) 267 K/UL ABSOLUTE NEUTROPHILS (test c ode = 1066) 3.98 K/UL ABSOLUTE LYMPHOCYTES (test c ode = 1067) 1.81 K/UL ABSOLUTE MONOCYTES (test cod e = 1068) 0.44 K/UL ABSOLUTE EOSINOPHILS (test c ode = 1040) 0.22 K/UL ABSOLUTE BASOPHILS (test cod e = 1069) 0.09 K/UL ABS IMMATURE GRANULOCYTES (t est code = 1020) 0.01 K/UL ABS NUCLEATED RBCS (test cod e = 52382) 0.00 K/UL CBC W/AUTO [id number] 00:00:00* Test Item Value Reference Range Interpretation Comme nts WBC (test code = 1001) 6.6 K/UL [...] = 1013) 1.4 % IMMATURE GRANULOCYTES (test code = 1036) 0.2 % NUCLEATED RBCS (test code = 1065) 0.0 /100WBC'S PLATELET COUNT (test code = 1015) 267 K/UL ABSOLUTE NEUTROPHILS (test c ode = 1066) 3.98 K/UL ABSOLUTE LYMPHOCYTES (test c ode = 1067) 1.81 K/UL ABSOLUTE MONOCYTES (test cod e = 1068) 0.44 K/UL ABSOLUTE EOSINOPHILS (test c ode = 1040) 0.22 K/UL ABSOLUTE BASOPHILS (test cod e = 1069) 0.09 K/UL ABS IMMATURE GRANULOCYTES (t est code = 1020) 0.01 K/UL ABS NUCLEATED RBCS (test cod e = 82587) 0.00 K/UL HEMOGLOBIN [id number] 00:00:00* Test Item Value Reference Range Interpretation Comme nts HEMOGLOBIN A1c (test code = 62261) 6.0 % HEMOGLOBIN [id number] 00:00:00* Test Item Value Reference Range Interpretation Comme nts HEMOGLOBIN A1c (test code = 73675) 6.0 % LIPID [id number] 00:00:00* Test Item Value Reference Range Interpretation Comme nts CHOLESTEROL (test code = 2210) 256 MG/DL TRIGLYCERIDES (test code = 2232) 223 MG/DL HDL CHOLESTEROL (test code = 2220) 37 MG/DL CALC LDL CHOL (test code = 2237) 181 MG/DL RISK RATIO LDL/HDL (test cod e = 2238) 4.89 RATIO COMPREHENSIVE METABOLIC [id number] 00:00:00* Test Item Value Reference Range Interpretation Comme nts GLUCOSE (test code = 2217) 105 MG/DL BUN (test code = 2208) 8 MG/DL CREATININE (test code = 2214) 0.66 MG/DL eGFR (2020 CKD-EPI) (test code = 54629) 107 ML/MIN/1.73 CALC BUN/CREAT (test code = 2235) 12 RATIO SODIUM (test code = 2231) 139 MEQ/L POTASSIUM (test code = 2228) 4.6 MEQ/L CHLORIDE (test code = 2215) 102 MEQ/L CARBON DIOXIDE (test code = 2206) 26 MEQ/L CALCIUM (test code = 2209) 9.8 MG/DL PROTEIN, TOTAL (test code = 2229) 7.7 G/DL ALBUMIN (test code = 2201) 4.5 G/DL CALC GLOBULIN (test code = 2240) 3.2 G/DL CALC A/G RATIO (test code = 2234) 1.4 RATIO BILIRUBIN, TOTAL (test code = 2207) 0.3 MG/DL ALKALINE PHOSPHATASE (test code = 2203) 102 U/L AST (test code = 221) 44 U/L ALT (test code = 2219) 27 U/L [id number] 00:00:00* Test Item Value Reference Range Interpretation Comme [facility] TSH, THIRD GENERATION (test code = 2821) 5.950 UIU/ML [id number] 00:00:00* Test Item Value Reference Range Interpretation Comme nts TSH, THIRD GENERATION (test code = 2821) 5.950 UIU/ML CBC W/AUTO [id number] 00:00:00* Test Item Value Reference Range Interpretation Comme nts WBC (test code = 1001) 6.6 K/UL [...] = 1013) 1.4 % IMMATURE GRANULOCYTES (test code = 1036) 0.2 % NUCLEATED RBCS (test code = 1065) 0.0 /100WBC'S PLATELET COUNT (test code = 1015) 267 K/UL ABSOLUTE NEUTROPHILS (test c ode = 1066) 3.98 K/UL ABSOLUTE LYMPHOCYTES (test c ode = 1067) 1.81 K/UL ABSOLUTE MONOCYTES (test cod e = 1068) 0.44 K/UL ABSOLUTE EOSINOPHILS (test c ode = 1040) 0.22 K/UL ABSOLUTE BASOPHILS (test cod e = 1069) 0.09 K/UL ABS IMMATURE GRANULOCYTES (t est code = 1020) 0.01 K/UL ABS NUCLEATED RBCS (test cod e = 36209) 0.00 K/UL CBC W/AUTO [id number] 00:00:00* Test Item Value Reference Range Interpretation Comme nts WBC (test code = 1001) 6.6 K/UL [...] = 1013) 1.4 % IMMATURE GRANULOCYTES (test code = 1036) 0.2 % NUCLEATED RBCS (test code = 1065) 0.0 /100WBC'S PLATELET COUNT (test code = 1015) 267 K/UL ABSOLUTE NEUTROPHILS (test c ode = 1066) 3.98 K/UL ABSOLUTE LYMPHOCYTES (test c ode = 1067) 1.81 K/UL ABSOLUTE MONOCYTES (test cod e = 1068) 0.44 K/UL ABSOLUTE EOSINOPHILS (test c ode = 1040) 0.22 K/UL ABSOLUTE BASOPHILS (test cod e = 1069) 0.09 K/UL ABS IMMATURE GRANULOCYTES (t est code = 1020) 0.01 K/UL ABS NUCLEATED RBCS (test cod e = 78699) 0.00 K/UL CBC W/AUTO [id number] 00:00:00* Test Item Value Reference Range Interpretation Comme nts WBC (test code = 1001) 6.6 K/UL [...] = 1013) 1.4 % IMMATURE GRANULOCYTES (test code = 1036) 0.2 % NUCLEATED RBCS (test code = 1065) 0.0 /100WBC'S PLATELET COUNT (test code = 1015) 267 K/UL ABSOLUTE NEUTROPHILS (test c ode = 1066) 3.98 K/UL ABSOLUTE LYMPHOCYTES (test c ode = 1067) 1.81 K/UL ABSOLUTE MONOCYTES (test cod e = 1068) 0.44 K/UL ABSOLUTE EOSINOPHILS (test c ode = 1040) 0.22 K/UL ABSOLUTE BASOPHILS (test cod e = 1069) 0.09 K/UL ABS IMMATURE GRANULOCYTES (t est code = 1020) 0.01 K/UL ABS NUCLEATED RBCS (test cod e = 54026) 0.00 K/UL HEMOGLOBIN [id number] 00:00:00* Test Item Value Reference Range Interpretation Comme nts HEMOGLOBIN A1c (test code = 38980) 6.0 % HEMOGLOBIN [id number] 00:00:00* Test Item Value Reference Range Interpretation Comme nts HEMOGLOBIN A1c (test code = 11003) 6.0 % HEMOGLOBIN [id number] 00:00:00* Test Item Value Reference Range Interpretation Comme nts HEMOGLOBIN A1c (test code = 33966) 6.0 % LIPID [id number] 00:00:00* Test Item Value Reference Range Interpretation Comme nts CHOLESTEROL (test code = 2210) 256 MG/DL TRIGLYCERIDES (test code = 2232) 223 MG/DL HDL CHOLESTEROL (test code = 2220) 37 MG/DL CALC LDL CHOL (test code = 2237) 181 MG/DL RISK RATIO LDL/HDL (test cod e = 2238) 4.89 RATIO LIPID [id number] 00:00:00* Test Item Value Reference Range Interpretation Comme nts CHOLESTEROL (test code = 2210) 256 MG/DL TRIGLYCERIDES (test code = 2232) 223 MG/DL HDL CHOLESTEROL (test code = 2220) 37 MG/DL CALC LDL CHOL (test code = 2237) 181 MG/DL RISK RATIO LDL/HDL (test cod e = 2238) 4.89 RATIO COMPREHENSIVE METABOLIC [id number] 00:00:00* Test Item Value Reference Range Interpretation Comme nts GLUCOSE (test code = 2217) 105 MG/DL BUN (test code = 2208) 8 MG/DL CREATININE (test code = 2214) 0.66 MG/DL eGFR (2020 CKD-EPI) (test code = 51556) 107 ML/MIN/1.73 CALC BUN/CREAT (test code = 2235) 12 RATIO SODIUM (test code = 2231) 139 MEQ/L POTASSIUM (test code = 2228) 4.6 MEQ/L CHLORIDE (test code = 2215) 102 MEQ/L CARBON DIOXIDE (test code = 2206) 26 MEQ/L CALCIUM (test code = 2209) 9.8 MG/DL PROTEIN, TOTAL (test code = 2229) 7.7 G/DL ALBUMIN (test code = 2201) 4.5 G/DL CALC GLOBULIN (test code = 2240) 3.2 G/DL CALC A/G RATIO (test code = 2234) 1.4 RATIO BILIRUBIN, TOTAL (test code = 2207) 0.3 MG/DL ALKALINE PHOSPHATASE (test code = 2204) 102 U/L AST (test code = 2218) 44 U/L ALT (test code = 2219) 27 U/L COMPREHENSIVE METABOLIC [id number] 00:00:00* Test Item Value Reference Range Interpretation Comme nts GLUCOSE (test code = 2217) 105 MG/DL BUN (test code = 2208) 8 MG/DL CREATININE (test code = 2214) 0.66 MG/DL eGFR (2020 CKD-EPI) (test code = 35791) 107 ML/MIN/1.73 CALC BUN/CREAT (test code = 2235) 12 RATIO SODIUM (test code = 2231) 139 MEQ/L POTASSIUM (test code = 2228) 4.6 MEQ/L CHLORIDE (test code = 2215) 102 MEQ/L CARBON DIOXIDE (test code = 2206) 26 MEQ/L CALCIUM (test code = 2209) 9.8 MG/DL PROTEIN, TOTAL (test code = 9) 7.7 G/DL ALBUMIN (test code = 2201) 4.5 G/DL CALC GLOBULIN (test code = 2240) 3.2 G/DL CALC A/G RATIO (test code = 2234) 1.4 RATIO BILIRUBIN, TOTAL (test code = 2206) 0.3 MG/DL ALKALINE PHOSPHATASE (test code = 2203) 102 U/L AST (test code = 2217) 44 U/L ALT (test code = 2218) 27 U/L [id number] 00:00:00* Test Item Value Reference Range Interpretation Comme nts TSH, THIRD GENERATION (test code = 2821) 5.950 UIU/ML [id number] 00:00:00* Test Item Value Reference Range Interpretation Comme nts TSH, THIRD GENERATION (test code = 2821) 5.950 UIU/ML [id number] 00:00:00* Test Item Value Reference Range Interpretation Comme nts TSH, THIRD GENERATION (test code = 2821) 5.950 UIU/ML POCT URINALYSIS W/O SPECIFIC [id number] 21:15:00* Test Item Value Reference Range Interpretation Comme nts POCT PH U (test code = 3254) 7 mg/dl 5-8 POCT U LEUK EST (test code = 3263) neg Negative - Negative POCT U NIT (test code = 3262) neg Negative - Negati ve POCT U PROT (test code = 3259) neg Negative - Negat sukhwinder POCT U GLU (test code = 3256) normal Negative - Negati ve POCT U KETONE (test code = 3258) neg Negative - Neg ative POCT U BLD (test code = 3257) neg Negative - Negati ve [facility]
--- NOTE | 2023-11-18 16:20 | EDPHYS ---
Physician Documentation [facility] Name: Keesha Pedroza Age: 53 yrs Sex: Female : 1970 Arrival Date: 11/18/2023 Time: 14:16 Bed 11 Private MD: ED Physician Garrett Burns HPI: 11/17 17:22 This 53 yrs old Female presents to ER via Ambulatory with complaints of Foreign Body In kb Ear. 17:22 Pt is a 53 year old female who presents for cotton from q-tip stuck in right ear canal. kb Denies injury . 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 - Post-menopause, Not tl4 Historical: - Allergies: 15:10 No Known Allergies; tl4 - Home Meds: 15:10 levothyroxine 200 mcg oral tablet 1 tab daily [Active]; rosuvastatin 20 mg oral tablet tl4 1 tab daily [Active]; Symbicort 160-4.5 mcg/actuation inhalation HFA Aerosol Inhaler 2 inhalations 2 times per day [Active]; albuterol sulfate 90 mcg/actuation Inhl HFA Aerosol Inhaler 1 puffs 2 times per day [Active]; albuterol sulfate 2.5 mg /3 mL (0.083 %) Nebulizer Solution for Nebulization 3 mL every 4 to 6 hours [Active]; - PMHx: 15:10 Anemia; Asthma; Bronchitis; COPD; Headaches; Hypothyroidism; Seizures; tl4 - PSHx: 15:10 None; tl4 - Immunization history:: Adult Immunizations unknown. - Infectious Disease History:: Denies. - Social history:: Smoking status: Patient reports the use of cigarette tobacco products, smokes one-half pack cigarettes per day, Patient/guardian denies using alcohol, street drugs. ROS: 16:29 Constitutional: As per HPI kb Exam: 16:29 Constitutional: This is a well developed, well nourished patient who is awake, alert, kb and in no acute distress. Head/Face: Normocephalic, atraumatic. Cardiovascular: Regular rate Respiratory: Respirations even and unlabored. No increased work of breathing. Talking in full sentences Skin: Warm, dry with normal turgor. Normal color. MS/ Extremity: Pulses equal, no cyanosis. Neurovascular intact. Full, normal range of motion. Neuro: Awake and alert, GCS 15, oriented to person, place, time, and situation. Moves all extremities. Normal gait. 16:29 ENT: Ear canal(s): foreign body, a piece of a Q-tip, in the right external ear canal, Vital Signs: 15:08 BP 109 / 88; Pulse 90; Resp 18; Temp 98.2(O); Pulse Ox 100% ; Weight 99.79 kg; Height 5 tl4 ft. 7 in. ; Pain 0/10; 16:29 BP 115 / 77; Pulse 84; Resp 18; Temp 97.9(O); Pulse Ox 97% on R/A; Pain 0/10; tl4 15:08 Body Mass Index 34.46 (99.79 kg, 170.18 cm) tl4 15:08 Pain Scale: Adult tl4 16:29 Pain Scale: Adult tl4 Procedures: 16:29 Foreign Body Removal: cotton, from the right ear canal, by using alligator clamps, kb Dressing: none, The patient tolerated the removal well. MDM: 15:01 Patient medically screened. [facility] 16:30 Data reviewed: vital signs, nurses notes. kb 17:23 Counseling: I had a detailed discussion with the patient and/or guardian regarding the kb historical points, exam findings, and any diagnostic results supporting the discharge/admit diagnosis, the need for outpatient follow up, a family practitioner, to return to the emergency department if symptoms worsen or persist or if there are any questions or concerns that arise at home. Administered Medications: No medications were administered Disposition Summary: 11/18/23 16:19 Discharge Ordered Notes: Location: Home kb Condition: Stable kb Diagnosis - Foreign body in right ear kb Followup: kb - With: Emergency Department - When: As needed - Reason: Worsening of condition Followup: kb - With: Private Physician - When: 2 - 3 days - Reason: Recheck today's complaints, Continuance of care, Re-evaluation by your physician Discharge Instructions: - Discharge Summary Sheet kb - Ear Foreign Body, [id number] kb Forms: - Medication Reconciliation Form kb - Thank You Letter kb - Antibiotic Education kb - Prescription Opioid Use kb - Patient Portal Instructions kb - Leadership Thank You Letter kb Signatures: Kacey Rojas, BING-[employer] STORE TEAM MEMBER-Ckb Grant, Garrett, MD MD lucius Logdahl, Dandy, RN RN tl4
--- NOTE | 2023-11-18 16:20 | ER ---
[facility] Name: Keesha Pedroza Age: 53 yrs Sex: Female : 1970 Arrival Date: 11/18/2023 Time: 14:16 Bed 11 Private MD: Diagnosis: Foreign body in right ear Presentation: 11/17 15:08 Chief complaint: Patient states: Pt states cotton from qtip is lodged in her right ear tl4 x approx 1 hour. Pt c/o pressure in the ear. Coronavirus screen: At this time, the client does not indicate any symptoms associated with coronavirus-19. Ebola Screen: No symptoms or risks identified at this time. Initial Sepsis Screen: Does the patient meet any 2 criteria? No. Patient's initial sepsis screen is negative. Does the patient have a suspected source of infection? No. Patient's initial sepsis screen is negative. Risk Assessment: Do you want to hurt yourself or someone else? Patient reports no desire to harm self or others. Onset of symptoms was November 18, 2023 at 14:00. 15:08 Method Of Arrival: Ambulatory tl4 15:08 Acuity: MARY 4 tl4 Triage Assessment: 15:12 General: Appears in no apparent distress. Behavior is calm, cooperative. Pain: Denies tl4 pain. EENT: Reports cotton lodged in right ear. Neuro: Level of Consciousness is awake, alert, obeys commands, Oriented to person, place, time, situation, Moves all extremities. Gait is steady, Speech is normal, Facial symmetry appears normal. Cardiovascular: Capillary refill < 3 seconds Patient's skin is warm and dry. Respiratory: Airway is patent Respiratory effort is even, unlabored, Respiratory pattern is regular, symmetrical, Breath sounds are clear bilaterally. GI: No deficits noted. No signs and/or symptoms were reported involving the gastrointestinal system. : No deficits noted. No signs and/or symptoms were reported regarding the genitourinary system. Derm: No deficits noted. No signs and/or symptoms reported regarding the dermatologic system. Musculoskeletal: No deficits noted. No signs and/or symptoms reported regarding the musculoskeletal system. 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/A - Post-menopause, Not tl4 Historical: - Allergies: 15:10 No Known Allergies; tl4 - Home Meds: 15:10 levothyroxine 200 mcg oral tablet 1 tab daily [Active]; rosuvastatin 20 mg oral tablet tl4 1 tab daily [Active]; Symbicort 160-4.5 mcg/actuation inhalation HFA Aerosol Inhaler 2 inhalations 2 times per day [Active]; albuterol sulfate 90 mcg/actuation Inhl HFA Aerosol Inhaler 1 puffs 2 times per day [Active]; albuterol sulfate 2.5 mg /3 mL (0.083 %) Nebulizer Solution for Nebulization 3 mL every 4 to 6 hours [Active]; - PMHx: 15:10 Anemia; Asthma; Bronchitis; COPD; Headaches; Hypothyroidism; Seizures; tl4 - PSHx: 15:10 None; tl4 - Immunization history:: Adult Immunizations unknown. - Infectious Disease History:: Denies. - Social history:: Smoking status: Patient reports the use of cigarette tobacco products, smokes one-half pack cigarettes per day, Patient/guardian denies using alcohol, street drugs. Screenin:14 [facility] ED Fall Risk Assessment (Adult) History of falling in the last 3 months, tl4 including since admission No falls in past 3 months (0 pts) Confusion or Disorientation No (0 pts) Intoxicated or Sedated No (0 pts) Impaired Gait No (0 pts) Mobility Assist Device Used No (0 pt) Altered Elimination No (0 pt) Score/Fall Risk Level 0 - 2 = Low Risk Oriented to surroundings, Maintained a safe environment, Educated pt \T\ family on fall prevention, incl call for assistance when getting out of bed, Assessed \T\ reinforced patient's understanding of fall precautions, Hourly rounding (assess needs \T\ fall precautionary measures) done, Used ambulatory aids as needed (educated on \T\ assisted with), Used gait belt as appropriate. Abuse screen: Denies threats or abuse. Denies injuries from another. Nutritional screening: No deficits noted. Tuberculosis screening: No symptoms or risk factors identified. Assessment: 16:28 Reassessment: No changes from previously documented assessment. Patient and/or family tl4 updated on plan of care and expected duration. Pain level reassessed. Patient is alert, oriented x 3, equal unlabored respirations, skin warm/dry/pink. Vital Signs: 15:08 BP 109 / 88; Pulse 90; Resp 18; Temp 98.2(O); Pulse Ox 100% ; Weight 99.79 kg; Height 5 tl4 ft. 7 in. ; Pain 0/10; 16:29 BP 115 / 77; Pulse 84; Resp 18; Temp 97.9(O); Pulse Ox 97% on R/A; Pain 0/10; tl4 15:08 Body Mass Index 34.46 (99.79 kg, 170.18 cm) tl4 15:08 Pain Scale: Adult tl4 16:29 Pain Scale: Adult tl4 ED Course: 14:19 Patient arrived in ED. rg4 15:01 Garrett Burns MD is Attending Physician. lucius 15:08 Dandy Chi, RN is Primary Nurse. tl4 15:10 Triage completed. tl4 15:14 Arm band placed on right wrist. tl4 15:14 Patient has correct armband on for positive identification. Bed in low position. Call tl4 light in reach. Side rails up X 1. Adult w/ patient. Provided Education on: ED process. Client placed on continuous cardiac and pulse oximetry monitoring. NIBP monitoring applied. Door closed. Noise minimized. Lights dimmed. Moved to private room. 15:15 No provider procedures requiring assistance completed. Patient did not have IV access tl4 during this emergency room visit. 16:00 Kacey Rojas FNP-C is [facility]. nia Administered Medications: No medications were administered Medication: 15:14 VIS not applicable for this client. tl4 Outcome: 16:19 Discharge ordered by . nia 16:29 Discharged to home ambulatory, with family, tl4 16:29 Condition: good 16:29 Discharge instructions given to patient, Instructed on discharge instructions, follow up and referral plans. Demonstrated understanding of instructions, follow-up care, 16:30 Patient left the ED. tl4 Signatures: Kacey Rojas FNP-C FNP-Garrett Veronica MD MD cha Garcia, Rubi rg4 Dandy Chi, RN RN tl4
[2023-11-18 21:18] VITALS: BP 115/77; TEMP 97.9; O2SAT 97
== END 2023-11-18 16:30 | disposition home or self-care (01) ==
LOC: ER 14:16
PROC: 09C3XZZ Extirpation of Matter from Right External Auditory Canal, External Approach (ICD-10-PCS; principal; 2023-11-18)
DX: T16.1XXA Foreign body in right ear, initial encounter (principal); F17.210 Nicotine dependence, cigarettes, uncomplicated
CPT/HCPCS: 99283

== ENCOUNTER 2024-03-27 23:46 | Emergency (ER) | payer OTHER ==
[2024-03-28] MEDS ORDERED: KETOROLAC 30 MG/ML INJ ONE (00:24)
--- NOTE | 2024-03-28 02:53 | ER ---
Nurse's Notes [facility] Name: Keesha Pedroza Age: 54 yrs Sex: Female : 1970 Arrival Date: 03/27/2024 Time: 23:46 Bed 9 Private MD: Diagnosis: Fall on same level, unspecified;Acute contusion of coccyx, acute coccygeal pain, hypothyroidism Presentation: 03/28 00:09 Chief complaint: Patient states: week ago tripped over water sprinkler and fell on my vc1 butt. The pain is getting worse. Coronavirus screen: Client denies travel out of the [place] in the last 14 days. At this time, the client does not indicate any symptoms associated with coronavirus-19. Ebola Screen: Patient negative for fever greater than or equal to 101.5 degrees Fahrenheit, and additional compatible Ebola Virus Disease symptoms Patient denies exposure to infectious person. Patient denies travel to an Ebola-affected area in the 21 days before illness onset. No symptoms or risks identified at this time. Initial Sepsis Screen: Does the patient meet any 2 criteria? No. Patient's initial sepsis screen is negative. Does the patient have a suspected source of infection? No. Patient's initial sepsis screen is negative. Risk Assessment: Do you want to hurt yourself or someone else? Patient reports no desire to harm self or others. Onset of symptoms was March 18, 2024. Care prior to arrival: None. Activity prior to arrival: None. Mechanism of Injury: Fall from standing position. Transition of care: patient was not received from another setting of care. 00:09 Method Of Arrival: Ambulatory vc1 00:09 Acuity: MARY 4 vc1 Triage Assessment: 00:30 General: Appears in no apparent distress. uncomfortable, Behavior is calm, cooperative, vc1 appropriate for age. Pain: Complains of pain in sacrum Pain currently is 7 out of 10 on a pain scale. EENT: No deficits noted. No signs and/or symptoms were reported regarding the EENT system. Neuro: Level of Consciousness is awake, alert, obeys commands, Oriented to person, place, time, situation, Appropriate for age. Cardiovascular: No deficits noted. Heart tones S1 S2 Capillary refill < 3 seconds. Respiratory: Airway is patent Respiratory effort is even, unlabored, Respiratory pattern is regular, symmetrical, Breath sounds are clear bilaterally. GI: Abdomen is round non-distended, Bowel sounds present X 4 quads. : No deficits noted. No signs and/or symptoms were reported regarding the genitourinary system. Derm: Skin is intact, is healthy with good turgor, Skin is dry, Skin is normal, Skin temperature is warm. Musculoskeletal: No deficits noted. No signs and/or symptoms reported regarding the musculoskeletal system. 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 - Post-menopause, Not vc1 Historical: - Allergies: 00:11 No Known Allergies; vc1 - Home Meds: 00:11 rosuvastatin 20 mg Oral tablet 1 tab daily [Active]; levothyroxine 200 mcg tablet 1 tab vc1 daily [Active]; albuterol sulfate 2.5 mg /3 mL (0.083 %) Inhl Solution for Nebulization 3 mL every 4 to 6 hours [Active]; albuterol sulfate 90 mcg/actuation Inhl HFA Aerosol Inhaler 1 puffs 2 times per day [Active]; Symbicort 160-4.5 mcg/actuation inhalation HFA Aerosol Inhaler 2 inhalations 2 times per day [Active]; - PMHx: 00:11 Anemia; Asthma; Bronchitis; COPD; Headaches; Hypothyroidism; Seizures; vc1 - PSHx: 00:11 section; vc1 - Immunization history:: Adult Immunizations up to date. - Infectious Disease History:: Denies. - Social history:: Smoking status: Patient reports the use of cigarette tobacco products, smokes one-half pack cigarettes per day. Screenin:13 Abuse screen: Denies threats or abuse. Nutritional screening: No deficits noted. vc1 Tuberculosis screening: No symptoms or risk factors identified. 00:13 [facility] ED Fall Risk Assessment (Adult) History of falling in the last 3 months, vc1 including since admission Yes- single mechanical fall (1 pt) Confusion or Disorientation No (0 pts) Intoxicated or Sedated No (0 pts) Impaired Gait No (0 pts) Mobility Assist Device Used No (0 pt) Altered Elimination No (0 pt) Score/Fall Risk Level 0 - 2 = Low Risk Oriented to surroundings, Maintained a safe environment, Educated pt \T\ family on fall prevention, incl call for assistance when getting out of bed. Assessment: 00:15 General: Appears in no apparent distress. uncomfortable, Behavior is calm, cooperative, vc1 appropriate for age. Pain: Complains of pain in sacrum Pain does not radiate. Pain currently is 10 out of 10 on a pain scale. Quality of pain is described as pressure, sharp. Neuro: Level of Consciousness is awake, alert, confused, Oriented to person, place, time, situation, Appropriate for age. Cardiovascular: No deficits noted. Heart tones S1 S2 present. Respiratory: Airway is patent Respiratory effort is even, unlabored, Respiratory pattern is regular, symmetrical, Breath sounds are clear bilaterally. GI: Bowel sounds present X 4 quads. Abd is soft and non tender X 4 quads. : No deficits noted. No signs and/or symptoms were reported regarding the genitourinary system. EENT: No deficits noted. No signs and/or symptoms were reported regarding the EENT system. Derm: Skin is intact, is healthy with good turgor, Skin is dry, Skin is normal, Skin temperature is warm. Musculoskeletal: No deficits noted. No signs and/or symptoms reported regarding the musculoskeletal system. Vital Signs: 00:09 Weight 113.4 kg; Height 5 ft. 7 in. ; Pain 5/10; vc1 00:16 BP 135 / 75; Pulse 80; Resp 17; Temp 97.7; Pulse Ox 93% ; vc1 03:36 BP 128 / 68; Pulse 78; Resp 18; Temp 98; Pulse Ox 95% ; Pain 4/10; vc1 00:09 Body Mass Index 39.16 (113.40 kg, 170.18 cm) vc1 00:09 Pain Scale: Adult vc1 03:36 Pain Scale: Adult vc1 ED Course: 03/27 23:50 Patient arrived in ED. [id number] 03/28 00:10 Triage completed. vc1 00:11 Kacey Rojas FNP-C is PHCP. kb 00:11 Allen Mojica MD is Attending Physician. kb 00:13 Arm band placed on right wrist. vc1 00:13 Patient has correct armband on for positive identification. Bed in low position. Call vc1 light in reach. Pulse ox on. NIBP on. 00:16 Juani Cifuentes, JAIME is Primary Nurse. vc1 00:37 Sacrum And Coccyx XRAY In Process Unspecified. EDMS 03:34 No provider procedures requiring assistance completed. Patient did not have IV access vc1 during this emergency room visit. 03:37 Provided Education on: resting tailbone. vc1 Administered Medications: 01:01 Drug: Ketorolac IM 30 mg IM once Route: IM; Site: right vastus lateralis; vc1 03:33 Follow up: Response: Medication administered at discharge. vc1 03:32 Drug: traMADol PO 100 mg PO once Route: PO; vc1 03:33 Follow up: Response: Medication administered at discharge. vc1 03:32 Drug: Methocarbamol PO 1500 mg PO once Route: PO; vc1 03:33 Follow up: Response: Medication administered at discharge. vc1 03:32 Drug: Ibuprofen PO 800 mg PO once Route: PO; vc1 03:33 Follow up: Response: Medication administered at discharge. vc1 Medication: 03:34 VIS not applicable for this client. vc1 Outcome: 02:52 Discharge ordered by . sp4 03:37 Discharged to home ambulatory, with significant other, vc1 03:37 Condition: good 03:37 Discharge instructions given to patient, Instructed on discharge instructions, follow up and referral plans. medication usage, Demonstrated understanding of instructions, follow-up care, medications, Prescriptions given X 4, 03:49 Patient left the ED. vc1 Signatures: Dispatcher [employer] EDMS Kacey Rojas, PAPO SMART-Millicent Benitez [id number] Juani Cifuentes RN RN vc1 Allen Mojica MD MD sp4
--- NOTE | 2024-03-28 02:53 | EDPHYS ---
Physician Documentation [facility] Name: Keesha Pedroza Age: 54 yrs Sex: Female : 1970 Arrival Date: 03/27/2024 Time: 23:46 Bed 9 Private MD: ED Physician Allen Mojica HPI: 03/28 00:14 This 54 yrs old Female presents to ER via Ambulatory with complaints of Tailbone kb Injury, Constipation. 00:14 Pt is a 54 year old female who presents for pain to tailbone after falling backwards kb onto buttocks 10 days ago. States the pain hasn't gotten any better. States she was mowing, pulling the lawnmower backwards and tripped which is how she fell onto buttocks. Denies any other pain. . 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 - Post-menopause, Not vc1 Historical: - Allergies: 00:11 No Known Allergies; vc1 - Home Meds: 00:11 rosuvastatin 20 mg Oral tablet 1 tab daily [Active]; levothyroxine 200 mcg tablet 1 tab vc1 daily [Active]; albuterol sulfate 2.5 mg /3 mL (0.083 %) Inhl Solution for Nebulization 3 mL every 4 to 6 hours [Active]; albuterol sulfate 90 mcg/actuation Inhl HFA Aerosol Inhaler 1 puffs 2 times per day [Active]; Symbicort 160-4.5 mcg/actuation inhalation HFA Aerosol Inhaler 2 inhalations 2 times per day [Active]; - PMHx: 00:11 Anemia; Asthma; Bronchitis; COPD; Headaches; Hypothyroidism; Seizures; vc1 - PSHx: 00:11 section; vc1 - Immunization history:: Adult Immunizations up to date. - Infectious Disease History:: Denies. - Social history:: Smoking status: Patient reports the use of cigarette tobacco products, smokes one-half pack cigarettes per day. ROS: 00:14 Constitutional: As per HPI kb Exam: 00:14 Constitutional: This is a well developed, well nourished patient who is awake, alert, kb and in no acute distress. Head/Face: Normocephalic, atraumatic. ENT: Moist Mucous membranes Cardiovascular: Regular rate Respiratory: Respirations even and unlabored. No increased work of breathing. Talking in full sentences Abdomen/GI: Soft, non-tender. No distention Skin: Warm, dry with normal turgor. Normal color. MS/ Extremity: Pulses equal, no cyanosis. Neurovascular intact. Full, normal range of motion. Neuro: Awake and alert, GCS 15, oriented to person, place, time, and situation. Moves all extremities. Normal gait. 00:14 Back: pain, that is moderate, of the sacrum, Vital Signs: 00:09 Weight 113.4 kg; Height 5 ft. 7 in. ; Pain 5/10; vc1 00:16 BP 135 / 75; Pulse 80; Resp 17; Temp 97.7; Pulse Ox 93% ; vc1 03:36 BP 128 / 68; Pulse 78; Resp 18; Temp 98; Pulse Ox 95% ; Pain 4/10; vc1 00:09 Body Mass Index 39.16 (113.40 kg, 170.18 cm) vc1 00:09 Pain Scale: Adult vc1 03:36 Pain Scale: Adult vc1 MDM: 00:11 Patient medically screened. kb 00:14 Differential diagnosis: contusion, fracture. Data reviewed: vital signs, nurses notes. kb Historians other than the Patient: Spouse/Significant Other: . 00:53 Transition of care: After a detail discussion of the patient's case, care is kb transferred to Allen Mojica MD. 02:43 ED course: EXAM DESCRIPTION: Sacrum And Coccyx CLINICAL HISTORY: PAIN TECHNIQUE: 3 sp4 views are submitted. COMPARISON: None available for comparison FINDINGS: No radiographic evidence of sacrococcygeal fracture or deformity. No lytic or sclerotic bony lesions are noted. The sacral foramina are not disrupted. IMPRESSION: No radiographic evidence of acute sacrococcygeal pathology. . 03/28 00:14 Order name: Sacrum And Coccyx XRAY kb Administered Medications: 01:01 Drug: Ketorolac IM 30 mg IM once Route: IM; Site: right vastus lateralis; vc1 03:33 Follow up: Response: Medication administered at discharge. vc1 03:32 Drug: traMADol PO 100 mg PO once Route: PO; vc1 03:33 Follow up: Response: Medication administered at discharge. vc1 03:32 Drug: Methocarbamol PO 1500 mg PO once Route: PO; vc1 03:33 Follow up: Response: Medication administered at discharge. vc1 03:32 Drug: Ibuprofen PO 800 mg PO once Route: PO; vc1 03:33 Follow up: Response: Medication administered at discharge. vc1 Disposition: 02:50 Co-signature as Attending Physician, Allen Mojica MD I agree with the assessment sp4 and plan of care. I reviewed the patient's care provided by Advanced Practice Provider \T\ agree w/ the diagnosis \T\ care plan. I personally saw the pt \T\ performed a substantive portion of the visit, incldng all aspects of the (History/Exam/Medical Decision Making). Disposition Summary: 03/28/24 02:52 Discharge Ordered Notes: Location: Home sp4 Problem: new sp4 Symptoms: have improved sp4 Condition: Stable sp4 Diagnosis - Fall on same level, unspecified sp4 - Acute contusion of coccyx, acute coccygeal pain, hypothyroidism sp4 Followup: sp4 - With: Private Physician - When: 7 - 10 days - Reason: Recheck today's complaints Discharge Instructions: - Discharge Summary Sheet sp4 - Musculoskeletal Pain sp4 Forms: - Patient Portal Instructions sp4 Prescriptions: - levothyroxine 200 mcg Oral tablet - take 1 tablet ORAL route daily for 30 days; 30 tablet; Refills: 0, Product sp4 Selection Permitted - Ibuprofen 800 mg Oral Tablet - take 1 tablet ORAL route every 8 hours As needed take with food; 30 tablet; sp4 Refills: 0, Product Selection Permitted - Tramadol 50 mg Oral tablet - take 1 tablet ORAL route every 8 hours as needed; 20 tablet; Refills: 0, sp4 Product Selection Permitted - methocarbamol 750 mg Oral tablet - take 2 tablets ORAL route every 8 hours for 2 days PRN pain; 30 tablet; sp4 Refills: 0, Product Selection Permitted Signatures: Dispatcher [employer] Kacey Anaya, PAPO SMART-Juani Irizarry RN RN vc1 Allen Mojica MD MD sp4
[2024-03-28] MEDS ORDERED: methocarbamoL 750 MG TAB ONE (03:25)
[2024-03-28] MEDS ORDERED: IBUPROFEN 400 MG TAB ONE (03:25)
[2024-03-28] MEDS ORDERED: TRAMADOL HCL 50 MG TAB ONE (03:26)
[2024-03-28 04:06] VITALS: BP 128/68; TEMP 98; O2SAT 95
--- NOTE | 2024-03-28 14:26 | RAD REPORT ---
EXAM DESCRIPTION: RAD - Sacrum And Coccyx - 03/28/2024 12:36 am CLINICAL HISTORY: PAIN TECHNIQUE: 3 views are submitted. COMPARISON: None available for comparison FINDINGS: No radiographic evidence of sacrococcygeal fracture or deformity. No lytic or sclerotic bony lesions are noted. The sacral foramina are not disrupted. IMPRESSION: No radiographic evidence of acute sacrococcygeal pathology. Electronically signed by: Alex Aguayo MD 03/28/2024 01:30 AM CDT RP Due to temporary technical issues with the PACS/Fluency reporting system, reports are being signed by the in house radiologist without review as a courtesy to ensure prompt reporting. The interpreting r adiologist is fully responsible for the content of the report.
--- OUTSIDE RECORDS SUMMARY | 2024-03-29 09:16 | XMS REPORT | Continuity of Care Document ---
Author Name Unknown Address [address] [facility] [address] [facility] [address] [place] [address] [facility] Address [address] [facility] [address] [place] [address] Care Team Providers Care Archivist Military History Name Role Phone Evelyn Knox Primary Care Physician [phone] Es Palma MD Attending Clinician [phone] Clive Brown MD Attending Clinician [phone] DEJA JIMÉNEZ Attending Clinician UnavailES Mata Attending Clinician Deja Aleman Attending Clinician [phone] Doctor Unassigned, [place] Attending Clinician U navailable Lab, Ang - Db Attending Clinician Unavailable Payers Payer Name Policy Type Policy Number Effective Date Expirati on Date Source Problems Condition Name Condition Details Condition Category Status Onset Date Resolution Date Last Treatment Date Treating Clinician Comments Source Obesity (BMI 30-39.9) Obesity (BMI 30-39.9) Disease Active 2020-08 00:00: 00 [facility] Dysuria Dysuria Disease Active 2020-08 00:00: 00 [facility] Screening examinatio n for STD (sexually transmitte d disease) Screening examinatio n for STD (sexually transmitte d disease) Disease Active 2020-08 00:00: 00 [facility] Encounter for surveillan ce of other contracept sukhwinder Encounter for surveillan ce of other contracept sukhwinder Disease Active 2020-08 00:00: 00 [facility] Irregular menstrual cycle Irregular menstrual cycle Disease Active 2020-08 00:00: 00 [facility] Vitamin D deficiency Vitamin D deficiency Disease Active 2020-08 00:00: 00 [facility] B12 deficiency (suboptima l level <400) B12 deficiency (suboptima l level <400) Disease Active 2020-08 00:00: 00 [facility] Iron deficiency anemia, unspecifie d iron deficiency anemia type Iron deficiency anemia, unspecifie d iron deficiency anemia type Disease Active 2020-08 00:00: 00 [facility] Hyperchole sterolemia Hyperchole sterolemia Disease Active 2020-08 00:00: 00 [facility] Abnormal liver function test Abnormal liver function test Disease Active 2020-08 00:00: 00 [facility] Acquired hypothyroi dism Acquired hypothyroi dism Disease Active 2020-08 00:00: 00 Overview: Formattin g of this note might be different from the original. Diagnosed ~2018 [facility] COPD with asthma COPD with asthma Disease Active 2020-08 00:00: 00 [facility] History of seizures History of seizures Disease Active 2020-08 00:00: 00 Overview: Formattin g of this note might be different from the original. No seizures since 2019 [facility] Menorrhagi a Menorrhagi a Disease Active 2020-08 00:00: 00 [facility] Tobacco dependence Tobacco dependence Disease Active 2020-08 00:00: 00 [facility] COVID-19 COVID-19 Disease Active 2020-08 0 00:00: 00 [facility] Allergies, Adverse Reactions, Alerts Allergy Name Allergy Type Status Severity Reaction(s) Onset Date Inactive Date Treating Clinician Comments Source NO KNOWN ALLERGIE S Drug Class Active [facility] Social History Social Habit Start Date Stop Date Quantity Comments Source Exposure to SARS-CoV-2 (event) Not sure [facility] Alcohol intake 2021-08-11 00:00:00 2021-08-11 00:00:00 Ex-drinker (finding) [facility] Tobacco use and exposure 2021-06-18 00:00:00 2021-06-18 00:00:00 Never used [facility] Sex Assigned At 1970 00:00:00 1970 00:00:00 [facility] Smoking Status Start Date Stop Date Source Current every day smoker 2021-06-18 00:00:00 [facility] Medications Ordered Medication Name Filled Medication Name [...] mcg/actuati on inhaler 11-18 00:00: 00 Yes [id number] INHALE 2 PUFFS BY MOUTH EVERY 6 HOURS NEEDED FOR WHEEZING OR SHORTNESS OF BREATHE. [facility] ALBUTEROL 2.5 mg /3 mL (0.083 %) nebulizer solution 11-16 00:00: 00 Yes [id number] USE 3 ML VIA NEBULIZER FOUR TIMES DAILY [facility] VENTOLIN HFA 90 mcg/actuati on inhaler 1- 00:00: 00 11-18 00:00 :00 No [id number] INHALE 2 PUFFS BY MOUTH EVERY 6 HOURS NEEDED FOR WHEEZING OR SHORTNESS OF BREATHE. [facility] ALBUTEROL 2.5 mg /3 mL (0.083 %) nebulizer solution 08-26 00:00: 00 11-16 00:00 :00 No [id number] USE 3 ML VIA NEBULIZER FOUR TIMES DAILY [facility] rosuvastati n 10 mg tablet 2020-08 00:00: 00 Yes 626 10mg Take 1 tablet by mouth at bedtime. Indication s: high cholestero l [facility] Ferrous Fumarate 324 mg (106 mg iron) Tab 2020-08 00:00: 00 Yes 713 1{tbl} Take 1 tablet by mouth daily. Take with a source of vitamin C. Indication s: anemia from inadequate iron [facility] Cholecalcif cassie, Vitamin D3, (D3-2000) 50 mcg (2,000 unit) capsule 2020-08 00:00: 00 Yes [id number] 2000U Take 1 capsule by mouth daily. Take with food. [facility] vitamin B-12 (VITAMIN B-12) 500 mcg tablet 2020-08 00:00: 00 Yes [id number] 500ug Take 1 tablet by mouth daily. [facility] levothyroxi ne 200 mcg tablet 2020-08 00:00: 00 Yes [id number] 200ug Take 1 tablet by mouth every morning. [facility] albuterol 2.5 mg /3 mL (0.083 %) nebulizer solution 2020-08 00:00: 00 Yes [id number] 2.5mg Inhale 3 mL 4 (four) times daily. [facility] albuterol 90 mcg/actuati on inhaler 2020-08 00:00: 00 09-08 00:00 :00 No [id number] 2{puff} Inhale 2 Puffs every 6 (six) hours as needed for Wheezing or Shortness of Breath. [facility] Vital Signs Vital Name Observation Time Observation Value Comments S ource Systolic blood pressure 2021-08-11 21:09:00 135 mm[Hg] [facility] Diastolic blood pressure 2021-08-11 21:09:00 74 mm[Hg] [facility] Heart rate 2021-08-11 21:09:00 85 /min [facility] Body temperature 2021-08-11 21:09:00 36.22 [place] [facility] Respiratory rate 2021-08-11 21:09:00 20 /min [facility] Body height 2021-08-11 21:09:00 170.2 cm [facility] Body weight 2021-08-11 21:09:00 103.692 kg [facility] BMI 2021-08-11 21:09:00 35.80 kg/m2 [facility] BP Systolic 2022-08-30 16:17:00 134 mm[Hg] BP Diastolic 2022-08-30 16:17:00 81 mm[Hg] Weight Measured 2022-08-30 16:17:00 208.00 pounds Height Measured 2022-08-30 16:17:00 67.00 inches Body Temperature 2022-08-30 16:17:00 97.30 degrees Heart Rate 2022-08-30 16:17:00 76.00 /min Respiratory Rate 2022-08-30 16:17:00 Height Measured 2022-02-15 13:32:00 67.00 inches Body Temperature 2022-02-15 13:32:00 98.00 degrees Heart Rate 2022-02-15 13:32:00 70.00 /min Respiratory Rate 2022-02-15 13:32:00 16.00 /min BP Systolic 2022-02-15 13:32:00 111 mm[Hg] BP Diastolic 2022-02-15 13:32:00 71 mm[Hg] Weight Measured 2022-02-15 13:32:00 220.00 pounds BP Systolic 2022-01-24 10:55:00 98 mm[Hg] BP Diastolic 2022-01-24 10:55:00 63 mm[Hg] Weight Measured 2022-01-24 10:55:00 221.80 pounds Height Measured 2022-01-24 10:55:00 67.00 inches Body Temperature 2022-01-24 10:55:00 97.20 degrees Heart Rate 2022-01-24 10:55:00 81.00 /min Respiratory Rate 2022-01-24 10:55:00 24.00 /min Procedures Procedure Date / Time Performed Performing Clinicia n Source POCT URINALYSIS W/O SPECIFIC GRAVITY 2021-08-11 00:00:00 Deja Jiménez [facility] Plan of Care Planned Activity Planned Date Details Comments Source Goal Plan of Care Note [code = 10400-3] Goal Plan of Care Note [code = 62763-0] Goal Plan of Care Note [code = 20621-7] Goal Plan of Care Note [code = 63400-3] Goal Plan of Care Note [code = 79032-4] Goal Plan of Care Note [code = 90206-2] Goal Plan of Care Note [code = 63333-0] Goal Plan of Care Note [code = 78274-9] Goal Plan of Care Note [code = 93996-6] Goal Plan of Care Note [code = 01544-7] Goal Plan of Care Note [code = 49098-0] Goal Plan of Care Note [code = 44064-9] Goal Plan of Care Note [code = 63321-5] Goal Plan of Care Note [code = 80865-3] Goal Plan of Care Note [code = 38137-9] Goal Plan of Care Note [code = 38152-0] Goal Plan of Care Note [code = 98612-6] Goal Plan of Care Note [code = 22360-9] Goal Plan of Care Note [code = 72906-8] Goal Plan of Care Note [code = 92329-5] Goal Plan of Care Note [code = 38381-2] Goal Plan of Care Note [code = 74482-8] Goal Plan of Care Note [code = 53341-7] Goal Plan of Care Note [code = 14169-3] Goal Plan of Care Note [code = 23536-4] Goal Plan of Care Note [code = 88319-2] Encounters Start Date/Time End Date/Time Encounter Type Admission Type Attending Clinicians Care Facility Care Department Encounter ID Source 2023-11-07 14:08:55 2023-11-07 14:08:55 Outpatient [facility] S[facility] [id number] Sergei Herrera 2023-08-30 10:17:34 2023-08-30 10:17:34 Outpatient SFA SFA [id number] Sergei Herrera 2023-03-20 14:39:55 2023-03-20 14:39:55 Outpatient SFA SFA [id number] Sergei Herrera 2022-12-26 09:53:27 2022-12-26 09:53:27 Outpatient SFA SFA [id number] Sergei Herrera 2022-12-22 11:01:00 2022-12-22 11:01:00 Outpatient SFA SFA [id number] Sergei Herrera 2022-10-19 10:14:43 2022-10-19 10:14:43 Outpatient SFA SFA [id number] Sergei Herrera 2022-09-05 08:02:41 2022-09-05 08:02:41 Outpatient SFA SFA [id number] Sergei Herrera 2022-08-30 15:38:19 2022-08-30 15:38:19 Outpatient SFA SFA [id number] Sergei Herrera 2022-08-30 00:00:00 2022-08-30 00:00:00 Outpatient Visit [id number] 2022-02-15 00:00:00 2022-02-15 00:00:00 Outpatient Visit [id number] 2021-12-30 00:00:00 2021-12-30 00:00:00 Es Ceron [facility] 1.2.840.114 350.1.13.10 4.2.7.2.686 [id number] [facility] 2021-12-21 00:00:2021-12-21 00:00:00 [facility] 1.2.840.114 350.1.13.10 4.2.7.2.686 [id number] [facility] 2021-11-18 00:00:00 2021-11-18 00:00:00 [facility] 1.2.840.114 350.1.13.10 4.2.7.2.686 [id number] [facility] 2021-11-18 00:00:00 2021-11-18 00:00:00 Refill Clive Brown [facility] 1.2.840.114 350.1.13.10 4.2.7.2.686 [id number] [facility] 2021-11-15 00:00:00 2021-11-15 00:00:00 Refill Es Palma [facility] 1.2.840.114 350.1.13.10 4.2.7.2.686 [id number] [facility] 2021-10-27 13:40:00 2021-10-27 13:40:00 Outpatient DEJA MELGAR [facility] [id number] [facility] 2021-10-08 10:00:00 2021-10-08 10:00:00 Outpatient ES EMERSON [facility] [id number] [facility] 2021-10-01 00:00:00 2021-10-01 00:00:00 Outpatient DEJA MELGAR [facility] [id number] [facility] 2021-09-10 08:45:00 2021-09-10 08:45:00 Outpatient ES EMERSON [facility] [id number] [facility] 2021-09-08 00:00:00 2021-09-08 00:00:00 Refill Es Palma [facility] 1.114 350.1.13.10 4.2.7.2.686 [id number] [facility] 2021-08-24 00:00:00 2021-08-24 00:00:00 Refill Es Palma [facility] 1.114 350.1.13.10 4.2.7.2.686 [id number] [facility] 2021-08-11 15:15:00 2021-08-11 15:57:54 Outpatient R DEJA JIMÉNEZ [facility] [id number] [facility] 2021-08-11 15:15:00 2021-08-11 15:57:54 Office Visit Deja Jiménez [facility] 1.114 350.1.13.10 4.2.7.2.686 [id number] [facility] 2021-08-11 15:15:00 2021-08-11 15:57:54 Outpatient R DEJA JIMÉNEZ [facility] [id number] [facility] 2021-08-11 00:00:00 2021-08-11 00:00:00 Orders Only Doctor Unassigned, [place] [facility] .114 350.1.13.10 4.2.7.2.686 [id number] [facility] 2021-06-30 00:00:00 2021-06-30 00:00:00 Orders Only Doctor Unassigned, [place] [facility] 1.0.114 350.1.13.10 4.2.7.2.686 [id number] [facility] 2021-06-24 00:00:00 2021-06-24 00:00:00 Telephone Es Palma [facility] 1.2.840.114 350.1.13.10 4.2.7.2.686 [id number] [facility] 2021-06-22 00:00:00 2021-06-22 00:00:00 Telephone Manuel Palmaful Cookie [facility] 1.2840.114 350.1.13.10 4.2.7.2.686 [id number] [facility] 2021-06-21 00:00:00 2021-06-21 00:00:00 Telephone Es Palma [facility] 1.2840.114 350.1.13.10 4.2.7.2.686 [id number] [facility] 2021-06-19 00:00:00 2021-06-19 00:00:00 Case Management Es Palma [facility] 1.2.840.114 350.1.13.10 4.2.7.2.686 [id number] [facility] 2021-06-18 11:00:00 2021-06-18 11:00:00 Outpatient R ES PALMA [facility] [id number] [facility] 2021-06-18 10:00:57 2021-06-18 10:13:18 Trimmer Meat Visit Lab, Jesse Rodriguez Es Palma A [facility] [place] 1.2.840.114 350.1.13.10 4.2.7.2.686 [id number] [facility] 2021-06-18 10:00:57 2021-06-18 10:13:18 Trimmer Meat Visit Lab, Ang - Db Es Palma [facility] 1.2.840.114 350.1.13.10 4.2.7.2.686 [id number] [facility] 2021-06-18 09:08:09 2021-06-18 09:53:07 [facility] 1.2.840.114 350.1.13.10 4.2.7.2.686 [id number] [facility] 2021-06-18 09:00:00 2021-06-18 09:53:07 Outpatient R ES PALMA [facility] [id number] [facility] 2021-06-18 00:00:00 2021-06-18 00:00:00 Orders Only Doctor Unassigned, [place] [facility] 1..840.114 350.1.13.10 4.2.7.2.686 [id number] [facility] Results Test Description Test Time Test Comments Results Result Co mments Source COMPREHENSIVE METABOLIC [id number] 06:00:17* Test Item Value Reference Range Interpretation Comme nts GLUCOSE (test code = 2217) 102 MG/DL 70-99 H BUN (test code = 2208) 9 MG/DL 6-20 CREATININE (test code = 2214) 0.95 MG/DL 0.60-1.30 eGFR (2020 CKD-EPI) (test co de = 71005) 72 ML/MIN/1.73 >60 CALC BUN/CREAT (test code = 2235) 9 RATIO 6-28 SODIUM (test code = 2231) 140 MEQ/L 133-146 POTASSIUM (test code = 2228) 4.3 MEQ/L 3.5-5.4 CHLORIDE (test code = 2215) 98 MEQ/L 95-107 CARBON DIOXIDE (test code = 2206) 25 MEQ/L 19-31 CALCIUM (test code = 2209) 9.6 MG/DL 8.5-10.5 PROTEIN, TOTAL (test code = 2229) 8.0 G/DL 6.1-8.3 ALBUMIN (test code = 2201) 5.2 G/DL 3.5-5.2 CALC GLOBULIN (test code = 2240) 2.8 G/DL 1.9-3.7 CALC A/G RATIO (test code = 2234) 1.9 RATIO 1.0-2.6 BILIRUBIN, TOTAL (test code = 2207) 0.4 MG/DL <=1.2 ALKALINE PHOSPHATASE (test code = 220) 75 U/L 40-132 AST (test code = 2218) 44 U/L 9-40 H ALT (test code = 221) 18 U/L 5-40 TSH, THIRD [id number] 05:21:57* Test Item Value Reference Range Interpretation Comme [facility] TSH, THIRD GENERATION (test code = 2821) >100.000 UIU/ML 0.400-4.100 H UNLESS OTHERWISE INDICATED, ALL TESTING PERFORMED AT [facility] [address] [place] [address] DIE [employer]KER [employer]LECT[employer]: ROCIO SOTO M.D. CLIA NUMBER [id number] [facility] [place]. [id number] HEMOGLOBIN [id number] 04:47:12* Test Item Value Reference Range Interpretation Comme [facility] HEMOGLOBIN A1c (test code = 89062) 5.7 % 4.2-5.6 H [employer] GUIDELINES FOR HGB A1C: [...] ALTERNATE TESTING OR LABORATORY CONSULTATION. OCCULT BLD,FECAL,IMMUNOASSAY [id number] 11:26:24* Test Item Value Reference Range Interpretation Comme [facility] OCCULT BLD, FECAL (test code = 32595) NEGATIVE NEGATIVE [facility] has important pathology staff changes effective 10/12/2022. New pathology staff will provide uninterrupted, excellent patient care and clinical consultation. See URL: [email or web address]. UNLESS OTHERWISE INDICATED, ALL TESTING PERFORMED AT [facility] [address] [place] [id number] [employer]: ROCIO SOTO M.D. CLIA NUMBER [id number] [facility] [place]. [id number] TSH, THIRD [id number] 08:52:55* Test Item Value Reference Range Interpretation Comme nts TSH, THIRD GENERATION (test code = 2821) 0.446 UIU/ML 0.400-4.100 LIPID [id number] 06:45:32* Test Item Value Reference Range Interpretation [...] SPECIMENS. FOR MOREINFORMATION, SEE CLIENT ANNOUNCEMENT AT [email or web address] RISK RATIO LDL/HDL (test code = 2238) 2.14 RATIO <3.22 COMPREHENSIVE METABOLIC [id number] 06:45:32* Test Item Value Reference Range Interpretation Comme nts GLUCOSE (test code = 2217) 98 MG/DL 70-99 BUN (test code = 2208) 9 MG/DL 6-20 CREATININE (test code = 2214) 0.61 MG/DL 0.60-1.30 eGFR (2020 CKD-EPI) (test code = 50062) 108 ML/MIN/1.73 >60 CALC BUN/CREAT (test code = 2235) 15 RATIO 6-28 SODIUM (test code = 2231) 141 MEQ/L 133-146 POTASSIUM (test code = 2228) 4.1 MEQ/L 3.5-5.4 CHLORIDE (test code = 2215) 102 MEQ/L 95-107 CARBON DIOXIDE (test code = 2206) 23 MEQ/L 19-31 CALCIUM (test code = 2208) 9.6 MG/DL 8.5-10.5 PROTEIN, TOTAL (test code = 2228) 7.6 G/DL 6.1-8.3 ALBUMIN (test code = 2200) 4.7 G/DL 3.5-5.2 CALC GLOBULIN (test code = 2240) 2.9 G/DL 1.9-3.7 CALC A/G RATIO (test code = 2233) 1.6 RATIO 1.0-2.6 BILIRUBIN, TOTAL (test code = 2206) 0.4 MG/DL See_Comment [Automated me ssage] The system which generated this result transmitted reference range: <=1.2. The reference range was not used to interpret this result as normal/abnormal. ALKALINE PHOSPHATASE (test code = 2203) 107 U/L 40-130 AST (test code = 8) 13 U/L 9-40 ALT (test code = 2218) 12 U/L 5-40 HEMOGLOBIN [id number] 02:49:41* Test Item Value Reference Range Interpretation Comme [facility] HEMOGLOBIN A1c (test code = 09315) 5.7 % 4.2-5.6 H UNLESS OTHERWISE INDICATED, ALL TESTING PERFORMED [facility] [address] [place] [address] DIE MAK[employer] ELECTRON[employer]: MADIE CHAIDEZ M.D. CLIA NUMBER [id number] [place] [id number] TSH, THIRD [id number] 09:45:16* Test Item Value Reference Range Interpretation Comme [facility] TSH, THIRD GENERATION (test code = 2821) 5.950 UIU/ML 0.400-4.100 H UNLESS OTHERWISE INDICATED, ALL TESTING PERFORMED [facility] [address] [place] [address] DIE MAKER ELECTRON[employer]: MADIE CHAIDEZ M.D. CLIA NUMBER [id number] [place]. [id number] LIPID [id number] 06:03:19* Test Item Value Reference Range Interpretation Comme nts CHOLESTEROL (test code = 221) 256 MG/DL <200 H TRIGLYCERIDES (test code = 2232) 223 MG/DL <150 H HDL CHOLESTEROL (test code = 2219) 37 MG/DL >39 L CALC LDL CHOL (test code = 2237) 181 MG/DL <100 H NOTE: CALCULATED LDL IS BASED ON SVETLANA-GREER METHOD WHICHINCLUDES ADJUSTABLE TRIGLYCERIDE:VLDL CHOLESTEROL RATIO.THIS FACTOR VARIES BY MEASURED TRIGLYCERIDE AND NON-HDLCHOLESTEROL CONCENTRATIONS WITH INCREASED CALCULATED LDL SEENIN HIGHER TRIGLYCERIDE OR LOWER NON-HDL SPECIMENS. FOR MOREINFORMATION, SEE CLIENT ANNOUNCEMENT AT [email or web address] RISK RATIO LDL/HDL (test code = 2238) 4.89 RATIO <3.22 H COMPREHENSIVE METABOLIC [id number] 06:03:19* Test Item Value Reference Range Interpretation Comme nts GLUCOSE (test code = 7) 105 MG/DL 70-99 H BUN (test code = 2207) 8 MG/DL 6-20 CREATININE (test code = 221) 0.66 MG/DL 0.60-1.30 eGFR (2020 CKD-EPI) (test code = 16770) 107 ML/MIN/1.73 >60 CALC BUN/CREAT (test code = 2235) 12 RATIO 6-28 SODIUM (test code = 223) 139 MEQ/L 133-146 POTASSIUM (test code = 2228) 4.6 MEQ/L 3.5-5.4 CHLORIDE (test code = 2215) 102 MEQ/L 95-107 CARBON DIOXIDE (test code = 2206) 26 MEQ/L 19-31 CALCIUM (test code = 2209) 9.8 MG/DL 8.5-10.5 PROTEIN, TOTAL (test code = 222) 7.7 G/DL 6.1-8.3 ALBUMIN (test code = 220) 4.5 G/DL 3.5-5.2 CALC GLOBULIN (test code = 2240) 3.2 G/DL 1.9-3.7 CALC A/G RATIO (test code = 2234) 1.4 RATIO 1.0-2.6 BILIRUBIN, TOTAL (test code = 2207) 0.3 MG/DL See_Comment [Automated me ssage] The system which generated this result transmitted reference range: <=1.2. The reference range was not used to interpret this result as normal/abnormal. ALKALINE PHOSPHATASE (test code = 2204) 102 U/L 40-128 AST (test code = 2218) 44 U/L 9-40 H ALT (test code = 2219) 27 U/L 5-40 HEMOGLOBIN [id number] 06:03:15* Test Item Value Reference Range Interpretation Comme nts HEMOGLOBIN A1c (test code = 09273) 6.0 % 4.2-5.6 H CBC W/AUTO DIFF WITH [id number] 05:24:42* Test Item Value Reference Range Interpretation [...] = 1065) 0.0 /100 WBC'S See_Comment [Automated [place] ge] The system which generated this result [...] 0.00-0.10 ABS NUCLEATED RBCS (test code = 18747) 0.00 K/UL 0.00-0.11 CBC W/AUTO [id number] 00:00:00* Test Item Value Reference Range Interpretation [...] ABS NUCLEATED RBCS (test cod e = 40274) 0.00 K/UL CBC W/AUTO [id number] 00:00:00* Test Item Value Reference Range Interpretation [...] ABS NUCLEATED RBCS (test cod e = 90992) 0.00 K/UL HEMOGLOBIN [id number] 00:00:00* Test Item Value Reference Range Interpretation Comme nts HEMOGLOBIN A1c (test code = 20693) 6.0 % HEMOGLOBIN [id number] 00:00:00* Test Item Value Reference Range Interpretation Comme nts HEMOGLOBIN A1c (test code = 03916) 6.0 % LIPID [id number] 00:00:00* Test Item Value Reference Range Interpretation Comme nts CHOLESTEROL (test code = 2210) 256 MG/DL TRIGLYCERIDES (test code = 2232) 223 MG/DL HDL CHOLESTEROL (test code = 2220) 37 MG/DL CALC LDL CHOL (test code = 2237) 181 MG/DL RISK RATIO LDL/HDL (test cod e = 2238) 4.89 RATIO COMPREHENSIVE METABOLIC [id number] 00:00:00* Test Item Value Reference Range Interpretation Comme nts GLUCOSE (test code = 2217) 105 MG/DL BUN (test code = 2208) 8 MG/DL CREATININE (test code = 2214) 0.66 MG/DL eGFR (2020 CKD-EPI) (test code = 70355) 107 ML/MIN/1.73 CALC BUN/CREAT (test code = [...] ALT (test code = 2219) 27 U/L [id number] 00:00:00* Test Item Value Reference Range Interpretation Comme nts TSH, THIRD GENERATION (test code = 2821) 5.950 UIU/ML [id number] 00:00:00* Test Item Value Reference Range Interpretation Comme nts TSH, THIRD GENERATION (test code = 2821) 5.950 UIU/ML CBC W/AUTO [id number] 00:00:00* Test Item Value Reference Range Interpretation [...] ABS NUCLEATED RBCS (test cod e = 56266) 0.00 K/UL CBC W/AUTO [id number] 00:00:00* Test Item Value Reference Range Interpretation [...] ABS NUCLEATED RBCS (test cod e = 68453) 0.00 K/UL CBC W/AUTO [id number] 00:00:00* Test Item Value Reference Range Interpretation [...] ABS NUCLEATED RBCS (test cod e = 70988) 0.00 K/UL HEMOGLOBIN [id number] 00:00:00* Test Item Value Reference Range Interpretation Comme nts HEMOGLOBIN A1c (test code = 19591) 6.0 % HEMOGLOBIN [id number] 00:00:00* Test Item Value Reference Range Interpretation Comme nts HEMOGLOBIN A1c (test code = 80159) 6.0 % HEMOGLOBIN [id number] 00:00:00* Test Item Value Reference Range Interpretation Comme nts HEMOGLOBIN A1c (test code = 36833) 6.0 % LIPID [id number] 00:00:00* Test Item Value Reference Range Interpretation Comme nts CHOLESTEROL (test code = 2210) 256 MG/DL TRIGLYCERIDES (test code = 2232) 223 MG/DL HDL CHOLESTEROL (test code = 2220) 37 MG/DL CALC LDL CHOL (test code = 2237) 181 MG/DL RISK RATIO LDL/HDL (test cod e = 2238) 4.89 RATIO LIPID [id number] 00:00:00* Test Item Value Reference Range Interpretation Comme nts CHOLESTEROL (test code = 2210) 256 MG/DL TRIGLYCERIDES (test code = 2232) 223 MG/DL HDL CHOLESTEROL (test code = 2220) 37 MG/DL CALC LDL CHOL (test code = 2237) 181 MG/DL RISK RATIO LDL/HDL (test cod e = 2238) 4.89 RATIO COMPREHENSIVE METABOLIC [id number] 00:00:00* Test Item Value Reference Range Interpretation Comme nts GLUCOSE (test code = 2217) 105 MG/DL BUN (test code = 2208) 8 MG/DL CREATININE (test code = 2214) 0.66 MG/DL eGFR (2020 CKD-EPI) (test code = 12269) 107 ML/MIN/1.73 CALC BUN/CREAT (test code = [...] code = 2219) 27 U/L COMPREHENSIVE METABOLIC [id number] 00:00:00* Test Item Value Reference Range Interpretation Comme nts GLUCOSE (test code = 2217) 105 MG/DL BUN (test code = 2208) 8 MG/DL CREATININE (test code = 2214) 0.66 MG/DL eGFR (2020 CKD-EPI) (test code = 24661) 107 ML/MIN/1.73 CALC BUN/CREAT (test code = [...] G/DL CALC A/G RATIO (test code = 4) 1.4 RATIO BILIRUBIN, TOTAL (test code = 7) 0.3 MG/DL ALKALINE PHOSPHATASE (test code = 2203) 102 U/L AST (test code = 8) 44 U/L ALT (test code = 2218) 27 U/L [id number] 00:00:00* Test Item Value Reference Range Interpretation Comme nts TSH, THIRD GENERATION (test code = 2821) 5.950 UIU/ML [id number] 00:00:00* Test Item Value Reference Range Interpretation Comme nts TSH, THIRD GENERATION (test code = 2821) 5.950 UIU/ML [id number] 00:00:00* Test Item Value Reference Range Interpretation Comme nts TSH, THIRD GENERATION (test code = 2821) 5.950 UIU/ML POCT URINALYSIS W/O SPECIFIC [id number] 21:15:00* Test Item Value Reference Range Interpretation [...] = 3257) neg Negative - Negati ve [facility]
== END 2024-03-28 03:49 | disposition home or self-care (01) ==
LOC: ER 23:46
DX: S30.0XXA Contusion of lower back and pelvis, initial encounter (principal); W01.0XXA Fall on same level from slipping, tripping and stumbling without subsequent striking against object, initial encounter; Y93.H9 Activity, other involving exterior property and land maintenance, building and construction; M53.3 Sacrococcygeal disorders, not elsewhere classified; E03.9 Hypothyroidism, unspecified; J44.9 Chronic obstructive pulmonary disease, unspecified; F17.210 Nicotine dependence, cigarettes, uncomplicated; Z79.899 Other long term (current) drug therapy
CPT/HCPCS: 72220; 96372; 99284

== ENCOUNTER 2025-05-13 14:38 | Emergency (ER) | payer OTHER ==
--- OUTSIDE RECORDS SUMMARY | 2025-05-13 14:46 | XMS REPORT | Continuity of Care Document ---
Author Name Unknown Address [address] [facility] [address] [place] [address] [facility] Address [address] [facility] [address] [facility] [address] [place] [address] Care Team Providers Care Electronics Test Engineer Name Role Phone Santana SALDAÑA, Antwan Primary Care Physician Es Palma MD Attending Clinician [phone] Clive Brown MD Attending Clinician [phone] DEJA JIMÉNEZ Attending Clinician UnavailES Mata Attending Clinician UnavailDeja Cabrera Attending Clinician [phone] Doctor Unassigned, [place] Attending Clinician U navailable Lab, Ang - Db Attending Clinician Unavailable Payers Payer Name Policy Type Policy Number Effective Date Expirati on Date Source Problems Condition Name Condition Details Condition Category Status Onset Date Resolution Date Last Treatment Date Treating Clinician Comments Source Obesity (BMI 30-39.9) Obesity (BMI 30-39.9) Disease Active 2020-08 00:00: 00 [facility] Dysuria Dysuria Disease Active 2020-08 00:00: 00 [facility] Screening examinatio n for STD (sexually transmitte d disease) Screening examinatio n for STD (sexually transmitte d disease) Disease Active 2020-08 00:00: 00 [facility] Encounter for surveillan ce of other contracept sukhwinder Encounter for surveillan ce of other contracept sukhwinder Disease Active 2020-08 00:00: 00 [facility] Irregular menstrual cycle Irregular menstrual cycle Disease Active 2020-08 00:00: 00 [facility] Vitamin D deficiency Vitamin D deficiency Disease Active 2020-08 00:00: 00 [facility] B12 deficiency (suboptima l level <400) B12 deficiency (suboptima l level <400) Disease Active 2020-08 00:00: 00 [facility] Iron deficiency anemia, unspecifie d iron deficiency anemia type Iron deficiency anemia, unspecifie d iron deficiency anemia type Disease Active 2020-08 00:00: 00 [facility] Hyperchole sterolemia Hyperchole sterolemia Disease Active 2020-08 00:00: 00 [facility] Abnormal liver function test Abnormal liver function test Disease Active 2020-08 00:00: 00 [facility] Acquired hypothyroi dism Acquired hypothyroi dism Disease Active 2020-08 00:00: 00 Overview: Formattin g of this note might be different from the original. Diagnosed ~2018 [facility] COPD with asthma COPD with asthma Disease Active 2020-08 00:00: 00 [facility] History of seizures History of seizures Disease Active 2020-08 00:00: 00 Overview: Formattin g of this note might be different from the original. No seizures since 2019 [facility] Menorrhagi a Menorrhagi a Disease Active 2020-08 00:00: 00 [facility] Tobacco dependence Tobacco dependence Disease Active 2020-08 00:00: 00 [facility] COVID-19 COVID-19 Disease Active 2020-08 0 00:00: 00 [facility] Allergies, Adverse Reactions, Alerts Allergy Name Allergy Type Status Severity Reaction(s) Onset Date Inactive Date Treating Clinician Comments Source NO KNOWN ALLERGIE S Drug Class Active [facility] Social History Social Habit Start Date Stop Date Quantity Comments Source Exposure to SARS-CoV-2 (event) Not sure [facility] Alcohol intake 2021-08-11 00:00:00 2021-08-11 00:00:00 Ex-drinker (finding) [facility] Tobacco use and exposure 2021-06-18 00:00:00 2021-06-18 00:00:00 Never used [facility] Sex Assigned At 1970 00:00:00 1970 00:00:00 [facility] Smoking Status Start Date Stop Date Source Current every day smoker 2021-06-18 00:00:00 [facility] Medications Ordered Medication Name Filled Medication Name Start Date Stop Date Current Medication? Ordering Clinician Indication Dosage Frequency Signature (SIG) Comments Components Source levothyroxi ne 200 mcg capsule 05-08 00:00: 00 Yes 1mcg Sergei Herrera albuterol sulfate 2.5 mg/3 mL (0.083 %) solution for nebulizatio n 05-05 00:00: 00 Yes /3 mL (0.083 %) Sergei Herrera albuterol sulfate HFA 90 mcg/actuati on aerosol inhaler 05-05 00:00: 00 Yes 2mcg/ac tuation Sergei Herrera metformin 500 mg tablet 05-05 00:00: 00 Yes 1mg Sergei Herrera rosuvastati n 40 mg tablet 05-05 00:00: 00 Yes 1mg Sergei Herrera benzonatate 100 mg capsule 05-05 00:00: 00 Yes 1mg Sergei Herrera metformin 500 mg tablet -06 00:00: 00 Yes 1mg Sergei Herrera levothyroxi ne 175 mcg tablet 8-06 00:00: 00 Yes 1mcg Sergei Herrera levothyroxi ne 175 mcg tablet 5-15 00:00: 00 Yes 1mcg Sergei Herrera albuterol sulfate 2.5 mg/3 mL (0.083 %) solution for nebulizatio n -24 00:00: 00 Yes /3 mL (0.083 %) Sergei Herrera metformin 500 mg tablet 4-10 00:00: 00 Yes 1mg Sergei Herrera levothyroxi ne 175 mcg tablet 4-09 00:00: 00 Yes 1mcg Sergei Herrera albuterol sulfate 2.5 mg/3 mL (0.083 %) solution for nebulizatio n 4-07 00:00: 00 Yes /3 mL (0.083 %) Sergei Herrera albuterol sulfate HFA 90 mcg/actuati on aerosol inhaler 4-07 00:00: 00 Yes 2mcg/ac tuation Sergei Herrera ibuprofen 800 mg tablet 4- 00:00: 00 Yes 1mg Sergei Herrera rosuvastati n 40 mg tablet - 00:00: 00 Yes 1mg Sergei Herrera albuterol sulfate 2.5 mg/3 mL (0.083 %) solution for nebulizatio n 2023-08 2- 00:00: 00 Yes /3 mL (0.083 %) Sergei Herrera ibuprofen 800 mg tablet 2023-08 2- 00:00: 00 Yes 1mg Sergei Herrera rosuvastati n 40 mg tablet 2023-08 2- 00:00: 00 Yes 1mg Sergei Herrera Unithroid 200 mcg tablet 2023-08 2- 00:00: 00 Yes 1mcg Sergei Herrera albuterol sulfate HFA 90 mcg/actuati on aerosol inhaler 2023-08 1-18 00:00: 00 Yes 2mcg/ac tuation Sergei Herrera Unithroid 200 mcg tablet 9-19 00:00: 00 Yes 1mcg Sergei Herrera prednisone 10 mg tablet 9-18 00:00: 00 Yes 1mg Sergei Herrera rosuvastati n 40 mg tablet 9-18 00:00: 00 Yes 1mg Sergei Herrera albuterol sulfate 2.5 mg/3 mL (0.083 %) solution for nebulizatio n 4-15 00:00: 00 Yes /3 mL (0.083 %) Sergei Herrera albuterol sulfate 2.5 mg/3 mL (0.083 %) solution for nebulizatio n 4-11 00:00: 00 Yes /3 mL (0.083 %) Sergei Herrera albuterol sulfate 2.5 mg/3 mL (0.083 %) solution for nebulizatio n 11-06 00:00: 00 Yes /3 mL (0.083 %) Sergei Herrera Symbicort 80 mcg-4.5 mcg/actuati on HFA aerosol inhaler 11-06 00:00: 00 Yes 2mcg/ac tuation Sergei Herrera albuterol sulfate HFA 90 mcg/actuati on aerosol inhaler 11-06 00:00: 00 Yes 2mcg/ac tuation Sergei Herrera hydrocortis one 1 % topical cream 11-06 00:00: 00 Yes % Sergei Herrera ibuprofen 800 mg tablet 11-06 00:00: 00 Yes 1mg Sergei Herrera albuterol sulfate 2.5 mg/3 mL (0.083 %) solution for nebulizatio n 11-05 00:00: 00 Yes /3 mL (0.083 %) Sergei Herrera ibuprofen 800 mg tablet 08-30 00:00: 00 Yes mg Sergei Herrera rosuvastati n 20 mg tablet 08-30 00:00: 00 Yes mg Sergei Herrera albuterol sulfate HFA 90 mcg/actuati on aerosol inhaler 08-30 00:00: 00 Yes mcg/act uation Sergei Herrera Unithroid 200 mcg tablet 08-30 00:00: 00 Yes mcg Sergei Herrera TAKE 1 TABLET DAILY. 08-30 00:00: 00 Yes 200 Sergei Herrera TAKE 1 TABLET DAILY. 08-30 00:00: 00 Yes 10 Sergei Herrera USE 1 UNIT DOSE IN NEBULIZER EVERY 4 TO 6 HOURS NEEDED. 08-30 00:00: 00 Yes [id number] Sergei Herrera APPLY TO LOWER EXTREMITIES , 4 GM OF GEL TO AFFECTED AREA 4 TIMES DAILY. DO NOT APPLY MORE THAN 16 GM DAILY TO ANY ONE AFFECTED JOINT. 08-30 00:00: 00 11-26 00:00 :00 No 1 Sergei Herrera TAKE 1 TABLET BY MOUTH ONCE DAILY 04-28 00:00: 00 11-26 00:00 :00 No 200 Sergeiloy Herrera TAKE 1 TABLET BY MOUTH ONCE DAILY 04-28 00:00: 00 11-26 00:00 :00 No 20 Sergei Penelope Herrera UNITHROID 12-22 00:00: 00 Yes Sergeiloy Herrera VENTOLIN HFA AER 12-22 00:00: 00 Yes 108 Sergei Herrera TAKE 1 TABLET 3 TIMES DAILY WITH FOOD NEEDED. 12-22 00:00: 00 11-26 00:00 :00 No 800 Sergeiloy Herrera TAKE 1 TABLET DAILY. 12-22 00:00: 00 11-26 00:00 :00 No 20 Sergei Herrera INHALE 2 PUFFS EVERY 4-6 HOURS, SPACED 60 SECONDS APART. 12-22 00:00: 00 11-26 00:00 :00 No [id number] Sergei Herrera TAKE 1 TABLET DAILY. 12-22 00:00: 00 11-26 00:00 :00 No 200 Sergei Herrera USE 1 UNIT DOSE IN NEBULIZER EVERY 4 TO 6 HOURS NEEDED. 12-22 00:00: 00 11-26 00:00 :00 No [id number] Sergeiloy Herrera VENTOLIN HFA AER 10-25 00:00: 00 Yes Sergei Herrera TAKE 1 TABLET DAILY. 10-19 00:00: 00 11-26 00:00 :00 No 10 Sergei Herrera TAKE 1 TABLET 3 TIMES DAILY WITH FOOD NEEDED. 10-19 00:00: 00 11-26 00:00 :00 No 800 Sergei Herrera APPLY TO LOWER EXTREMITIES , 4 GM OF GEL TO AFFECTED AREA 4 TIMES DAILY. DO NOT APPLY MORE THAN 16 GM DAILY TO ANY ONE AFFECTED JOINT. 10-19 00:00: 00 11-26 00:00 :00 No 1 Sergeiloy Herrera ALBUTEROL 0.083% 3-08 00:00: 00 11-26 00:00 :00 No Sergei Herrera TAKE 1 TABLET DAILY. 2-02 00:00: 00 11-26 00:00 :00 No 10 Sergei Penelope Herrera TAKE 1 TABLET 3 TIMES DAILY WITH FOOD NEEDED. 2- 00:00: 00 11-26 00:00 :00 No 800 Sergei F Javier UNITHROID 09-07 00:00: 00 Yes Sergei Penelope Herrera TAKE 1 TABLET DAILY. 1-24 00:00: 00 11-26 00:00 :00 No 200 Sergei Penelope Herrera UNITHROID 08-30 00:00: 00 Yes Sergei Penelope Herrera PROAIR HFA AER 08-30 00:00: 00 Yes Sergei Penelope Herrera TAKE 1 TABLET 3 TIMES DAILY NEEDED FOR PAIN. 08-30 00:00: 00 11-26 00:00 :00 No [id number] Sergei Penelope Herrera TAKE 1 TABLET DAILY. 08-30 00:00: 00 11-26 00:00 :00 No 200 Sergei Herrera TAKE 1 TABLET 3 TIMES DAILY WITH FOOD NEEDED. 08-30 00:00: 00 11-26 00:00 :00 No 800 Sergei Penelope Herrera USE 1 UNIT DOSE IN NEBULIZER EVERY 4 TO 6 HOURS NEEDED. 08-30 00:00: 00 11-26 00:00 :00 No [id number] Sergei Herrera INHALE 2 PUFFS EVERY 4-6 HOURS, SPACED 60 SECONDS APART. 08-30 00:00: 00 11-26 00:00 :00 No [id number] Sergei Penelope Herrera ROSUVASTATI N 08-30 00:00: 00 11-26 00:00 :00 No Sergei Penelope Herrera TAKE 1 TABLET DAILY. 2021-08 2-06 00:00: 00 11-26 00:00 :00 No 10 Sergei Penelope Javier PREDNISONE 9-19 00:00: 00 Yes 20 Sergei Penelope Herrera ALBUTEROL NEB 0.083% 8-16 00:00: 00 No ALBUTEROL NEB 0.083% 8-16 00:00: 00 Yes Sergei Penelope Herrera INHALE 2 PUFFS BY MOUTH EVERY 6 HOURS NEEDED FOR WHEEZING OR SHORTNESS OF BREATH 8-16 00:00: 00 Yes Sergei Herrera TAKE 1 TABLET 3 TIMES DAILY WITH FOOD NEEDED. - 00:00: 00 No 800 TAKE 1 TABLET 3 TIMES DAILY WITH FOOD NEEDED. 0 7-10 00:00: 00 Yes 800 Sergei Herrera TAKE 1 TABLET 3 TIMES DAILY WITH FOOD NEEDED. 02-15 00:00: 00 No 800 TAKE 1 TABLET 3 TIMES DAILY WITH FOOD NEEDED. 02-15 00:00: 00 Yes 800 Sergei Herrera levothyroxi ne 200 mcg tablet 01-25 00:00: 00 No 1mcg levothyroxi ne 200 mcg tablet 01-25 00:00: 00 Yes 1mcg Sergei Herrera ProAir HFA 90 mcg/actuati on aerosol inhaler 01-24 00:00: 00 No 2mcg/ac tuation rosuvastati n 10 mg tablet 01-24 00:00: 00 No 1mg levothyroxi ne 200 mcg tablet 01-24 00:00: 00 No 1mcg albuterol sulfate 1.25 mg/3 mL solution for nebulizatio n 01-24 00:00: 00 No 3mg/3 mL ProAir HFA 90 mcg/actuati on aerosol inhaler 01-24 00:00: 00 Yes 2mcg/ac tuation Sergei Herrera rosuvastati n 10 mg tablet 01-24 00:00: 00 Yes 1mg Sergei Herrera levothyroxi ne 200 mcg tablet 01-24 00:00: 00 Yes 1mcg Sergei Herrera albuterol sulfate 1.25 mg/3 mL solution for nebulizatio n 01-24 00:00: 00 Yes 3mg/3 mL Sergei Herrera VENTOLIN HFA 90 mcg/actuati on inhaler 4-07 00:00: 00 Yes [id number] INHALE 2 PUFFS BY MOUTH EVERY 6 HOURS NEEDED FOR WHEEZING OR SHORTNESS OF BREATHE. [facility] ALBUTEROL 2.5 mg /3 mL (0.083 %) nebulizer solution 11-16 00:00: 00 Yes [id number] USE 3 ML VIA NEBULIZER FOUR TIMES DAILY [facility] VENTOLIN HFA 90 mcg/actuati on inhaler 09-08 00:00: 00 11-18 00:00 :00 No [id number] INHALE 2 PUFFS BY MOUTH EVERY 6 HOURS NEEDED FOR WHEEZING OR SHORTNESS OF BREATHE. [facility] ALBUTEROL 2.5 mg /3 mL (0.083 %) nebulizer solution 08-26 00:00: 00 11-16 00:00 :00 No [id number] USE 3 ML VIA NEBULIZER FOUR TIMES DAILY [facility] rosuvastati n 10 mg tablet 2020-08 00:00: 00 Yes [id number] 10mg Take 1 tablet by mouth at bedtime. Indication s: high cholestero l [facility] Ferrous Fumarate 324 mg (106 mg iron) Tab 2020-08 00:00: 00 Yes 713 1{tbl} Take 1 tablet by mouth daily. Take with a source of vitamin C. Indication s: anemia from inadequate iron [facility] Cholecalcif cassie, Vitamin D3, (D3-2000) 50 mcg (2,000 unit) capsule 2020-08 00:00: 00 Yes [id number] 2000U Take 1 capsule by mouth daily. Take with food. [facility] vitamin B-12 (VITAMIN B-12) 500 mcg tablet 2020-08 00:00: 00 Yes [id number] 500ug Take 1 tablet by mouth daily. [facility] levothyroxi ne 200 mcg tablet 2020-08 00:00: 00 Yes [id number] 200ug Take 1 tablet by mouth every morning. [facility] albuterol 2.5 mg /3 mL (0.083 %) nebulizer solution 2020-08 00:00: 00 Yes [id number] 2.5mg Inhale 3 mL 4 (four) times daily. [facility] albuterol 90 mcg/actuati on inhaler 2020-08 105 00:00: 00 09-08 00:00 :00 No [id number] 2{puff} Inhale 2 Puffs every 6 (six) hours as needed for Wheezing or Shortness of Breath. [facility] Immunizations Ordered Immunization Name Filled Immunization Name Date Status Comments Source SHINGRIX VACCINE 2022-01-24 00:00:00 Completed Tdap 2022-01-24 00:00:00 Completed pneumococcal polysacchar 2022-01-24 00:00:00 Completed SHINGRIX VACCINE 2022-01-24 00:00:00 Completed Tdap 2022-01-24 00:00:00 Completed pneumococcal polysacchar 2022-01-24 00:00:00 Completed SHINGRIX VACCINE SHINGRIX VACCINE 2022-01-24 00:00:00 Completed Sergei Herrera Tdap Tdap 2022-01-24 00:00:00 Completed Sergei Herrera pneumococcal polysacchar pneumococcal polysacchar 2022-01-24 00:00:00 Completed Sergei Herrera Vital Signs Vital Name Observation Time Observation Value Comments S ource Systolic blood pressure 2021-08-11 21:09:00 135 mm[Hg] [facility]pling o [facility] Diastolic blood pressure 2021-08-11 21:09:00 74 mm[Hg] [facility] Heart rate 2021-08-11 21:09:00 85 /min [facility] Body temperature 2021-08-11 21:09:00 36.22 [place] [facility] Respiratory rate 2021-08-11 21:09:00 20 /min [facility] Body height 2021-08-11 21:09:00 170.2 cm [facility] Body weight 2021-08-11 21:09:00 103.692 kg [facility] BMI 2021-08-11 21:09:00 35.80 kg/m2 [facility] BP Systolic 2025-05-05 09:22:00 127 mm[Hg] Vinay Herrera BP Diastolic 2025-05-05 09:22:00 82 mm[Hg] [facility] phen Javier Weight Measured 2025-05-05 09:22:00 232.60 pounds Sergei F Javier Height Measured 2025-05-05 09:22:00 67.00 inches Sergei F Javier Body Temperature 2025-05-05 09:22:00 98.00 degrees Sergei F Javier Heart Rate 2025-05-05 09:22:00 73.00 /min Vandana en F Javier Respiratory Rate 2025-05-05 09:22:00 18.00 /min Sergei F Javier BP Systolic 2024-11-18 14:49:00 143 mm[Hg] Step hen F Javier BP Diastolic 2024-11-18 14:49:00 84 mm[Hg] Steve phen F Javier Weight Measured 2024-11-18 14:49:00 241.40 pounds Sergei F Javier Height Measured 2024-11-18 14:49:00 67.00 inches Sergei F Javier Body Temperature 2024-11-18 14:49:00 97.60 degrees Sergei F Javier Heart Rate 2024-11-18 14:49:00 68.00 /min Vandana en F Javier Respiratory Rate 2024-11-18 14:49:00 18.00 /min Sergei F Javier BP Systolic 2024-07-15 10:15:00 118 mm[Hg] Step hen F Javier BP Diastolic 2024-07-15 10:15:00 71 mm[Hg] Steve phen F Javier Weight Measured 2024-07-15 10:15:00 241.00 pounds Sergei F Javier Height Measured 2024-07-15 10:15:00 67.00 inches Sergei F Javier Body Temperature 2024-07-15 10:15:00 98.10 degrees Sergei F Javier Heart Rate 2024-07-15 10:15:00 70.00 /min Vandana en F Javier Respiratory Rate 2024-07-15 10:15:00 20.00 /min Sergei F Javier BP Systolic 2024-05-01 10:07:00 120 mm[Hg] Step hen F Javier BP Diastolic 2024-05-01 10:07:00 87 mm[Hg] Steve phen F Javier Weight Measured 2024-05-01 10:07:00 238.80 pounds Sergei F Javier Height Measured 2024-05-01 10:07:00 67.00 inches Sergei F Javier Body Temperature 2024-05-01 10:07:00 97.60 degrees Sergei F Javier Heart Rate 2024-05-01 10:07:00 82.00 /min Vandana en F Javier Respiratory Rate 2024-05-01 10:07:00 18.00 /min Sergei F Javier BP Systolic 2023-11-07 14:18:00 103 mm[Hg] Step hen F Javier BP Diastolic 2023-11-07 14:18:00 64 mm[Hg] Steve phen F Javier Weight Measured 2023-11-07 14:18:00 230.00 pounds Sergei F Javier Height Measured 2023-11-07 14:18:00 67.00 inches Sergei F Javier Body Temperature 2023-11-07 14:18:00 96.90 degrees Sergei F Javier Heart Rate 2023-11-07 14:18:00 77.00 /min Vandana en F Javier Respiratory Rate 2023-11-07 14:18:00 Sergei F Javier BP Systolic 2023-08-30 10:28:00 Step hen F Javier BP Diastolic 2023-08-30 10:28:00 Steve phen F Javier Weight Measured 2023-08-30 10:28:00 244.00 pounds Sergei F Javier Height Measured 2023-08-30 10:28:00 Sergei F Javier Body Temperature 2023-08-30 10:28:00 Sergei F Javier Heart Rate 2023-08-30 10:28:00 Vandana en F Javier Respiratory Rate 2023-08-30 10:28:00 Sergei F Javier BP Systolic 2023-08-30 10:19:00 131 mm[Hg] Step hen F Javier BP Diastolic 2023-08-30 10:19:00 79 mm[Hg] Steve phen F Javier Weight Measured 2023-08-30 10:19:00 244.00 pounds Sergei F Javier Height Measured 2023-08-30 10:19:00 67.00 inches Sergei F Javier Body Temperature 2023-08-30 10:19:00 98.00 degrees Sergei F Javier Heart Rate 2023-08-30 10:19:00 73.00 /min Vandana en F Javier Respiratory Rate 2023-08-30 10:19:00 18.00 /min Sergei F Javier BP Systolic 2022-12-26 09:57:00 108 mm[Hg] Step hen F Javier BP Diastolic 2022-12-26 09:57:00 68 mm[Hg] Steve phen F Javier Weight Measured 2022-12-26 09:57:00 206.60 pounds Sergei F Javier Height Measured 2022-12-26 09:57:00 67.00 inches Sergei F Javier Body Temperature 2022-12-26 09:57:00 97.60 degrees Sergei F Javier Heart Rate 2022-12-26 09:57:00 63.00 /min Vandana en F Javier Respiratory Rate 2022-12-26 09:57:00 Sergei F Javier BP Systolic 2022-12-22 11:08:00 120 mm[Hg] Step hen F Javier BP Diastolic 2022-12-22 11:08:00 72 mm[Hg] Steve phen F Javier Weight Measured 2022-12-22 11:08:00 203.60 pounds Sergei F Javier Height Measured 2022-12-22 11:08:00 67.00 inches Sergei F Javier Body Temperature 2022-12-22 11:08:00 97.40 degrees Sergei F Javier Heart Rate 2022-12-22 11:08:00 63.00 /min Vandana en F Javier Respiratory Rate 2022-12-22 11:08:00 Sergei F Javier BP Systolic 2022-10-19 10:18:00 119 mm[Hg] Step hen F Javier BP Diastolic 2022-10-19 10:18:00 73 mm[Hg] Steve phen F Javier Weight Measured 2022-10-19 10:18:00 204.80 pounds Sergei F Javier Height Measured 2022-10-19 10:18:00 67.00 inches Sergei F Javier Body Temperature 2022-10-19 10:18:00 97.50 degrees Sergei F Javier Heart Rate 2022-10-19 10:18:00 66.00 /min Vandana en F Javier Respiratory Rate 2022-10-19 10:18:00 Sergei F Javier BP Systolic 2022-08-30 16:17:00 134 mm[Hg] Step hen F Javier BP Diastolic 2022-08-30 16:17:00 81 mm[Hg] Steve phen F Javier Weight Measured 2022-08-30 16:17:00 208.00 pounds Sergei F Javier Height Measured 2022-08-30 16:17:00 67.00 inches Sergei F Javier Body Temperature 2022-08-30 16:17:00 97.30 degrees Sergei F Javier Heart Rate 2022-08-30 16:17:00 76.00 /min Vandana en F Javier Respiratory Rate 2022-08-30 16:17:00 Sergei F Javier BP Systolic 2022-02-15 13:32:00 111 mm[Hg] Step hen F Javier BP Diastolic 2022-02-15 13:32:00 71 mm[Hg] Steve phen F Javier Weight Measured 2022-02-15 13:32:00 220.00 pounds Sergei F Javier Height Measured 2022-02-15 13:32:00 67.00 inches Sergei F Javier Body Temperature 2022-02-15 13:32:00 98.00 degrees Sergei F Javier Heart Rate 2022-02-15 13:32:00 70.00 /min Vandana en F Javier Respiratory Rate 2022-02-15 13:32:00 16.00 /min Sergei F Javier BP Systolic 2022-01-24 10:55:00 98 mm[Hg] Step hen F Javier BP Diastolic 2022-01-24 10:55:00 63 mm[Hg] Steve phen F Javier Weight Measured 2022-01-24 10:55:00 221.80 pounds Sergei F Javier Height Measured 2022-01-24 10:55:00 67.00 inches Sergei F Javier Body Temperature 2022-01-24 10:55:00 97.20 degrees Sergei F Javier Heart Rate 2022-01-24 10:55:00 81.00 /min Vandana en F Javier Respiratory Rate 2022-01-24 10:55:00 24.00 /min Sergei F Javier Procedures Procedure Date / Time Performed Performing Clinicia n Source POCT URINALYSIS W/O SPECIFIC GRAVITY 2021-08-11 00:00:00 Deja Jiménez [facility] Plan of Care Planned Activity Planned Date Details Comments Source Goal Plan of Care Note [code = 42195-3] Goal Plan of Care Note [code = 62454-6] Goal Plan of Care Note [code = 50383-4] Goal Plan of Care Note [code = 17284-2] Goal Plan of Care Note [code = 69738-6] Goal Plan of Care Note [code = 87293-3] Goal Plan of Care Note [code = 70318-5] Goal Plan of Care Note [code = 49865-9] Goal Plan of Care Note [code = 31771-7] Goal Plan of Care Note [code = 22761-2] Goal Plan of Care Note [code = 10697-8] Goal Plan of Care Note [code = 83862-5] Goal Plan of Care Note [code = 81092-4] Goal Plan of Care Note [code = 14392-8] Goal Plan of Care Note [code = 82965-3] Goal Plan of Care Note [code = 89449-0] Goal Plan of Care Note [code = 18073-0] Goal Plan of Care Note [code = 72024-1] Goal Plan of Care Note [code = 89832-0] Goal Plan of Care Note [code = 56203-4] Goal Plan of Care Note [code = 48213-7] Goal Plan of Care Note [code = 89639-1] Goal Plan of Care Note [code = 61692-4] Goal Plan of Care Note [code = 34934-6] Goal Plan of Care Note [code = 15572-0] Goal Plan of Care Note [code = 14018-9] Encounters Start Date/Time End Date/Time Encounter Type Admission Type Attending [facility] Care Department Encounter ID Source 2025-05-05 09:15:10 2025-05-05 09:15:[address] [facility] [id number] Sergei Herrera 2025-05-05 00:00:00 2025-05-05 00:00:[address] [facility] [id number] Sergei Negrete Javier 2024-11-18 14:46:34 2024-11-18 14:46:[address] [facility] [id number] Sergei Negrete Javier 2024-11-18 00:00:00 2024-11-18 00:00:[address] [facility] [id number] Sergei Herrera 2024-07-15 09:55:41 2024-07-15 09:55:41 Outpatient SFA [facility] [id number] Sergei Herrera 2024-07-15 00:00:00 2024-07-15 00:00:00 Outpatient Visit SFA [id number] Sergei Herrera 2024-05-01 10:03:50 2024-05-01 10:03:50 Outpatient SFA SFA [id number] Sergei Herrera 2024-05-01 00:00:00 2024-05-01 00:00:00 Outpatient Visit SFA [id number] Sergei Herrera 2023-11-07 14:08:55 2023-11-07 14:08:55 Outpatient SFA SFA [id number] Sergei Herrera 2023-08-30 10:17:34 2023-08-30 10:17:34 Outpatient SFA SFA [id number] Sergei Herrera 2023-03-20 14:39:55 2023-03-20 14:39:55 Outpatient SFA SFA [id number] Sergei Herrera 2022-12-26 09:53:27 2022-12-26 09:53:27 Outpatient SFA SFA [id number] Sergei Herrera 2022-12-22 11:01:00 2022-12-22 11:01:00 Outpatient SFA SFA [id number] Sergei Herrera 2022-10-19 10:14:43 2022-10-19 10:14:43 Outpatient SFA SFA [id number] Sergei Herrera 2022-09-05 08:02:41 2022-09-05 08:02:41 Outpatient SFA SFA [id number] Sergei Herrera 2022-08-30 15:38:19 2022-08-30 15:38:19 Outpatient SFA SFA [id number] Sergei Herrera 2022-08-30 00:00:00 2022-08-30 00:00:00 Outpatient Visit [id number] 2022-02-15 00:00:00 2022-02-15 00:00:00 Outpatient Visit [id number] 2021-12-30 00:00:00 2021-12-30 00:00:00 [facility] [place] [place] [facility] [facility] 1.2.840.114 350.1.13.10 4.2.7.2.686 [id number] 044 [id number] [facility] 2021-12-21 00:00:00 2021-12-21 00:00:00 Refill [place], Wondiful A [facility] [place] [facility] 1.2.840.114 350.1.13.10 4.2.7.2.686 [id number] 044 [id number] [facility] 2021-11-18 00:00:00 2021-11-18 00:00:00 Refill [place], Wondiful A [facility] 1.2.840.114 350.1.13.10 4.2.7.2.686 [id number] [id number] [facility] 2021-11-18 00:00:00 2021-11-18 00:00:00 Refill [facility]ive [facility] 1.2.840.114 350.1.13.10 4.2.7.2.686 [id number] [facility] 2021-11-15 00:00:00 2021-11-15 00:00:00 Refill [place], Wondiful A [facility] [place] [facility] 1.2.840.114 350.1.13.10 4.2.7.2.686 [id number] 044 [id number] [facility] 2021-10-27 13:40:00 2021-10-27 13:40:00 Outpatient DEJA MELGAR [facility] RAD [id number] [facility] 2021-10-08 10:00:00 2021-10-08 10:00:00 Outpatient ES [facility] [id number] [facility] 2021-10-01 00:00:00 2021-10-01 00:00:00 Outpatient DEJA MELGAR [facility] [id number] [facility] 2021-09-10 08:45:00 2021-09-10 08:45:00 Outpatient ES [facility] [id number] [facility] 2021-09-08 00:00:00 2021-09-08 00:00:00 Refangela CaleroManuel coatesful A [facility] 1.2.840.114 350.1.13.10 4.2.7.2.686 [id number] 044 [id number] [facility] 2021-08-24 00:00:00 2021-08-24 00:00:00 January Palma Manuelful A [facility] 1.2.840.114 350.1.13.10 4.2.7.2.686 [id number] [id number] [facility] 2021-08-11 15:15:00 2021-08-11 15:57:54 Outpatient DEJA MELGAR [facility] [id number] [facility] 2021-08-11 15:15:00 2021-08-11 15:57:54 Office Visit Deja Jiménez [facility] FUR OPERATOR [facility] [place] 1.2.840.114 350.1.13.10 4.2.7.2.686 [id number] [facility] 2021-08-11 15:15:00 2021-08-11 15:57:54 Outpatient DEJA MELGAR [facility] [id number] [facility] 2021-08-11 00:00:00 2021-08-11 00:00:00 Orders Only Doctor Unassigned, [place] [facility] 1.2.840.114 350.1.13.10 4.2.7.2.686 [id number] [facility] 2021-06-30 00:00:00 2021-06-30 00:00:00 Orders Only Doctor Unassigned, [place] [facility] 1.2840.114 350.1.13.10 4.2.7.2.686 [id number] [facility] 2021-06-24 00:00:00 2021-06-24 00:00:00 Telephone Ronda Cyxeniaful A [facility] 1.2840.114 350.1.13.10 4.2.7.2.686 [id number] 044 [id number] [facility] 2021-06-22 00:00:00 2021-06-22 00:00:00 Telephone Ronda Cyxeniaful A [facility] 1.2840.114 350.1.13.10 4.2.7.2.686 [id number] 044 [id number] [facility] 2021-06-21 00:00:00 2021-06-21 00:00:00 Telephone Ronda Cyxeniaful A [facility] 1.2840.114 350.1.13.10 4.2.7.2.686 [id number] 044 [id number] [facility] 2021-06-19 00:00:00 2021-06-19 00:00:00 Case Management Es Palma [facility] [place] MEDICAL OFFICE BUILDING 1.2.840.114 350.1.13.10 4.2.7.2.686 [id number] 044 [id number] [facility] 2021-06-18 11:00:00 2021-06-18 11:00:00 Outpatient R ES [facility] [id number] [facility] 2021-06-18 10:00:57 2021-06-18 10:13:18 Boot Repairer Visit Lab, Jesse - Michael Es Palma [facility] [place] MEDICAL OFFICE BUILDING 1.2.840.114 350.1.13.10 4.2.7.2.686 [id number] [facility] 2021-06-18 10:00:57 2021-06-18 10:13:18 Boot Repairer Visit Lab, Ang - Es Schwartz [facility] [place] 1..840.114 350.1.13.10 4.2.7.2.686 [id number] [facility] 2021-06-18 09:08:09 2021-06-18 09:53:07 Office Visit Es Palma [facility] [place] 1.2.840.114 350.1.13.10 4.2.7.2.686 [id number] 044 [id number] [facility] 2021-06-18 09:00:00 2021-06-18 09:53:07 Outpatient R ES [facility] [id number] [facility] 2021-06-18 00:00:00 2021-06-18 00:00:00 Orders Only Doctor Unassigned, [place] [facility] 1.2840.114 350.1.13.10 4.2.7.2.686 [id number] [facility] Results Test Description Test Time Test Comments Results Result Co mments Source Sergei HerreraLIPID [id number] 00:00:00* Test Item Value Reference Range Interpretation Comme nts CHOLESTEROL, TOTAL (test cod e = 2093-3) 165 mg/dL HDL CHOLESTEROL (test code = 2085-9) 38 mg/dL TRIGLYCERIDES (test code = 2571-8) 253 mg/dL LDL-CHOLESTEROL (test code = 32387-6) 94 mg/dL(calc) CHOL/HDLC RATIO (test code = 9830-1) 4.3 (calc) NON HDL CHOLESTEROL (test code = 37657-8) 127 mg/dL(calc) Sergei HerreraHEMOGLOBIN [id number] 00:00:00* Test Item Value Reference Range Interpretation Comme nts HEMOGLOBIN A1c (test code = 4548-4) 5.9 % Sergei [id number] 00:00:00* Test Item Value Reference Range Interpretation Comme nts TSH (test code = 3016-3) 0.06 mIU/L Sergei HerreraLIPID [id number] 00:00:00* Test Item Value Reference Range Interpretation Comme nts CHOLESTEROL, TOTAL (test cod e = 2093-3) 159 mg/dL HDL CHOLESTEROL (test code = 2085-9) 38 mg/dL TRIGLYCERIDES (test code = 2571-8) 275 mg/dL LDL-CHOLESTEROL (test code = 00786-1) 85 mg/dL(calc) CHOL/HDLC RATIO (test code = 9830-1) 4.2 (calc) NON HDL CHOLESTEROL (test code = 79265-2) 121 mg/dL(calc) Sergei HerreraCOMPREHENSIVE METABOLIC [id number] 00:00:00* Test Item Value Reference Range Interpretation Comme nts GLUCOSE (test code = 2345-7) 97 mg/dL UREA NITROGEN (BUN) (test code = 3094-0) 6 mg/dL CREATININE (test code = 2160-0) 0.55 mg/dL EGFR (test code = 73708-5) 110 mL/min/1.73m2 BUN/CREATININE RATIO (test code = 3097-3) 11 (calc) SODIUM (test code = 2951-2) 142 mmol/L POTASSIUM (test code = 2823-3) 3.8 mmol/L CHLORIDE (test code = 2075-0) 104 mmol/L CARBON DIOXIDE (test code = 8-9) 28 mmol/L CALCIUM (test code = 69866-4) 9.1 mg/dL PROTEIN, TOTAL (test code = 2885-2) 7.1 g/dL ALBUMIN (test code = 1751-7) 4.3 g/dL GLOBULIN (test code = 72054-9) 2.8 g/dL(calc) ALBUMIN/GLOBULIN RATIO (test code = 1759-0) 1.5 (calc) BILIRUBIN, TOTAL (test code = 1975-2) 0.3 mg/dL ALKALINE PHOSPHATASE (test code = 6768-6) 80 U/L AST (test code = 1920-8) 14 U/L ALT (test code = 1742-6) 15 U/L Sergei HerreraHEMOGLOBIN [id number] 00:00:00* Test Item Value Reference Range Interpretation Comme [facility] HEMOGLOBIN A1c (test code = 4548-4) 6.0 %oftotalHgb Sergei [id number] 00:00:00* Test Item Value Reference Range Interpretation Comme [facility] TSH (test code = 3016-3) 0.10 mIU/L Sergei HerreraHEMOGLOBIN [id number] 10:37:13* Test Item Value Reference Range Interpretation Comme [facility] HEMOGLOBIN A1c (test code = 74576) 6.2 % 4.2-5.6 H [employer] GUIDELINES FOR HGB A1C: [...] ETC.). CONSIDER ALTERNATE TESTING OR LABORATORY CONSULTATION. COMPREHENSIVE METABOLIC [id number] 09:37:37* Test Item Value Reference Range Interpretation Comme [facility] GLUCOSE (test code = 2217) 119 MG/DL 70-99 H BUN (test code = 2207) 9 MG/DL 6-20 CREATININE (test code = 4) 0.62 MG/DL 0.60-1.30 eGFR (2020 CKD-EPI) (test code = 68992) 106 ML/MIN/1.73 >60 CALC BUN/CREAT (test code = 2234) 15 RATIO 6-28 SODIUM (test code = 2230) 138 MEQ/L 133-146 POTASSIUM (test code = 2227) 5.0 MEQ/L 3.5-5.4 NOTE: HEMOLYTIC INTERFERENCE IDENTIFIED. THIS MAY INTRODUCE POSITIVEBIAS IN POTASSIUM ANALYSIS AND COULD NORMALIZE A LOW POTASSIUM RESULT. CHLORIDE (test code = 2214) 100 MEQ/L 95-107 CARBON DIOXIDE (test code = 2205) 21 MEQ/L 19-31 CALCIUM (test code = 2208) 9.4 MG/DL 8.5-10.5 PROTEIN, TOTAL (test code = 2228) 7.7 G/DL 6.1-8.3 ALBUMIN (test code = 2200) 4.5 G/DL 3.5-5.2 CALC GLOBULIN (test code = 0) 3.2 G/DL 1.9-3.7 CALC A/G RATIO (test code = 2233) 1.4 RATIO 1.0-2.6 BILIRUBIN, TOTAL (test code = 2206) 0.4 MG/DL <=1.2 ALKALINE PHOSPHATASE (test code = 2203) 87 U/L 40-133 AST (test code = 2217) 22 U/L 9-40 ALT (test code = 221) 13 U/L 5-40 LIPID [id number] 09:37:37* Test Item Value Reference Range Interpretation Comme nts CHOLESTEROL (test code = 2210) 117 MG/DL <200 TRIGLYCERIDES (test code = 2232) 191 MG/DL <150 H HDL CHOLESTEROL (test code = 2220) 36 MG/DL >39 L CALC LDL CHOL (test code = 2237) 55 MG/DL <100 NOTE: CALCULATED LDL IS BASED ON SVETLANA-GREER METHOD WHICHINCLUDES ADJUSTABLE TRIGLYCERIDE:VLDL CHOLESTEROL RATIO.THIS FACTOR VARIES BY MEASURED TRIGLYCERIDE AND NON-HDLCHOLESTEROL CONCENTRATIONS WITH INCREASED CALCULATED LDL SEENIN HIGHER TRIGLYCERIDE OR LOWER NON-HDL SPECIMENS. FOR MOREINFORMATION, SEE CLIENT ANNOUNCEMENT AT [email or web address] RISK RATIO LDL/HDL (test code = 2238) 1.53 RATIO <3.22 TSH, THIRD [id number] 09:37:24* Test Item Value Reference Range Interpretation Comme nts TSH, THIRD GENERATION (test code = 2821) 1.370 UIU/ML 0.400-4.100 UNLESS OTHERWISE INDICATED, ALL TESTING PERFORMED AT [facility] [address] [place] [address] RETRIEVAL SPECIALIST: ROCIO SOTO M.D. [place] NUMBER [id number] [facility] [place]. [id number] HEMOGLOBIN [id number] 00:00:00* Test Item Value Reference Range Interpretation Comme nts HEMOGLOBIN A1c (test code = 56409) 6.2 % Sergei Negrete AustinLIPID [id number] 00:00:00* Test Item Value Reference Range Interpretation Comme nts CHOLESTEROL (test code = 2210) 117 MG/DL TRIGLYCERIDES (test code = 2232) 191 MG/DL HDL CHOLESTEROL (test code = 2220) 36 MG/DL CALC LDL CHOL (test code = 2237) 55 MG/DL RISK RATIO LDL/HDL (test cod e = 2238) 1.53 RATIO Sergei HerreraCOMPREHENSIVE METABOLIC [id number] 00:00:00* Test Item Value Reference Range Interpretation Comme nts GLUCOSE (test code = 2217) 119 MG/DL BUN (test code = 2208) 9 MG/DL CREATININE (test code = 2214) 0.62 MG/DL eGFR (2020 CKD-EPI) (test code = 56112) 106 ML/MIN/1.73 CALC BUN/CREAT (test code = 2235) 15 RATIO SODIUM (test code = 2231) 138 MEQ/L POTASSIUM (test code = 2228) 5.0 MEQ/L CHLORIDE (test code = 2215) 100 MEQ/L CARBON DIOXIDE (test code = 2206) 21 MEQ/L CALCIUM (test code = 2209) 9.4 MG/DL PROTEIN, TOTAL (test code = 2229) 7.7 G/DL ALBUMIN (test code = 2201) 4.5 G/DL CALC GLOBULIN (test code = 2240) 3.2 G/DL CALC A/G RATIO (test code = 2234) 1.4 RATIO BILIRUBIN, TOTAL (test code = 2207) 0.4 MG/DL ALKALINE PHOSPHATASE (test code = 2204) 87 U/L AST (test code = 2218) 22 U/L ALT (test code = 2219) 13 U/L Sergei Mcfadden, THIRD [id number] 00:00:00* Test Item Value Reference Range Interpretation Comme bulmaro TSH, THIRD GENERATION (test code = 2821) 1.370 UIU/ML Sergei HerreraHEMOGLOBIN [id number] 00:00:00* Test Item Value Reference Range Interpretation Comme bulmaro HEMOGLOBIN A1c (test code = 81239) 6.2 % Sergei HerreraLIPID [id number] 00:00:00* Test Item Value Reference Range Interpretation Comme nts CHOLESTEROL (test code = 2210) 117 MG/DL TRIGLYCERIDES (test code = 2232) 191 MG/DL HDL CHOLESTEROL (test code = 2220) 36 MG/DL CALC LDL CHOL (test code = 2237) 55 MG/DL RISK RATIO LDL/HDL (test cod e = 2238) 1.53 RATIO Sergei HerreraCOMPREHENSIVE METABOLIC [id number] 00:00:00* Test Item Value Reference Range Interpretation Comme nts GLUCOSE (test code = 2217) 119 MG/DL BUN (test code = 2208) 9 MG/DL CREATININE (test code = 2214) 0.62 MG/DL eGFR (2020 CKD-EPI) (test code = 27513) 106 ML/MIN/1.73 CALC BUN/CREAT (test code = 2235) 15 RATIO SODIUM (test code = 2231) 138 MEQ/L POTASSIUM (test code = 2228) 5.0 MEQ/L CHLORIDE (test code = 2215) 100 MEQ/L CARBON DIOXIDE (test code = 2206) 21 MEQ/L CALCIUM (test code = 2209) 9.4 MG/DL PROTEIN, TOTAL (test code = 2229) 7.7 G/DL ALBUMIN (test code = 2201) 4.5 G/DL CALC GLOBULIN (test code = 2240) 3.2 G/DL CALC A/G RATIO (test code = 2234) 1.4 RATIO BILIRUBIN, TOTAL (test code = 2207) 0.4 MG/DL ALKALINE PHOSPHATASE (test code = 2204) 87 U/L AST (test code = 2218) 22 U/L ALT (test code = 2219) 13 U/L Sergei Mcfadden, THIRD [id number] 00:00:00* Test Item Value Reference Range Interpretation Comme bulmaro TSH, THIRD GENERATION (test code = 2821) 1.370 UIU/ML Sergei HerreraHEMOGLOBIN [id number] 00:00:00* Test Item Value Reference Range Interpretation Comme bulmaro HEMOGLOBIN A1c (test code = 71065) 6.2 % Sergei HerreraLIPID [id number] 00:00:00* Test Item Value Reference Range Interpretation Comme nts CHOLESTEROL (test code = 2210) 117 MG/DL TRIGLYCERIDES (test code = 2232) 191 MG/DL HDL CHOLESTEROL (test code = 2220) 36 MG/DL CALC LDL CHOL (test code = 2237) 55 MG/DL RISK RATIO LDL/HDL (test cod e = 2238) 1.53 RATIO Sergei HerreraCOMPREHENSIVE METABOLIC [id number] 00:00:00* Test Item Value Reference Range Interpretation Comme nts GLUCOSE (test code = 2217) 119 MG/DL BUN (test code = 2208) 9 MG/DL CREATININE (test code = 2214) 0.62 MG/DL eGFR (2020 CKD-EPI) (test code = 02515) 106 ML/MIN/1.73 CALC BUN/CREAT (test code = 2235) 15 RATIO SODIUM (test code = 2231) 138 MEQ/L POTASSIUM (test code = 2228) 5.0 MEQ/L CHLORIDE (test code = 2215) 100 MEQ/L CARBON DIOXIDE (test code = 2206) 21 MEQ/L CALCIUM (test code = 2209) 9.4 MG/DL PROTEIN, TOTAL (test code = 2229) 7.7 G/DL ALBUMIN (test code = 2201) 4.5 G/DL CALC GLOBULIN (test code = 2240) 3.2 G/DL CALC A/G RATIO (test code = 2234) 1.4 RATIO BILIRUBIN, TOTAL (test code = 2207) 0.4 MG/DL ALKALINE PHOSPHATASE (test code = 2204) 87 U/L AST (test code = 2218) 22 U/L ALT (test code = 2219) 13 U/L Sergei Mcfadden, THIRD [id number] 00:00:00* Test Item Value Reference Range Interpretation Comme nts TSH, THIRD GENERATION (test code = 2821) 1.370 UIU/ML Sergei HerreraLIPID [id number] 06:00:17* Test Item Value Reference Range Interpretation Comme nts CHOLESTEROL (test code = 2210) 422 MG/DL <200 H TRIGLYCERIDES (test code = 2232) 350 MG/DL <150 H HDL CHOLESTEROL (test code = 2220) 36 MG/DL >39 L CALC LDL CHOL (test code = 2237) 327 MG/DL <100 H NOTE: CALCULATED LDL IS BASED ON SVETLANA-GREER METHOD WHICHINCLUDES ADJUSTABLE TRIGLYCERIDE:VLDL CHOLESTEROL RATIO.THIS FACTOR VARIES BY MEASURED TRIGLYCERIDE AND NON-HDLCHOLESTEROL CONCENTRATIONS WITH INCREASED CALCULATED LDL SEENIN HIGHER TRIGLYCERIDE OR LOWER NON-HDL SPECIMENS. FOR MOREINFORMATION, SEE CLIENT ANNOUNCEMENT AT [email or web address] RISK RATIO LDL/HDL (test code = 2238) 9.08 RATIO <3.22 H COMPREHENSIVE METABOLIC [id number] 06:00:17* Test Item Value Reference Range Interpretation Comme nts GLUCOSE (test code = 2217) 102 MG/DL 70-99 H BUN (test code = 2208) 9 MG/DL 6-20 CREATININE (test code = 2214) 0.95 MG/DL 0.60-1.30 eGFR (2020 CKD-EPI) (test co de = 05195) 72 ML/MIN/1.73 >60 CALC BUN/CREAT (test code [...] MG/DL <=1.2 ALKALINE PHOSPHATASE (test code = 2204) 75 U/L 40-132 AST (test code = 2218) 44 U/L 9-40 H ALT (test code = 2219) 18 U/L 5-40 TSH, THIRD [id number] 05:21:57* Test Item Value Reference Range Interpretation Comme nts TSH, THIRD GENERATION (test code = 2821) >100.000 UIU/ML 0.400-4.100 H UNLESS OTHERWISE INDICATED, ALL TESTING PERFORMED AT [facility] [address] [place] [address] RETRIEVAL SPECIALIST: ROCIO SOTO M.D. CLIA NUMBER [id number] [facility] [place]. [id number] HEMOGLOBIN [id number] 04:47:12* Test Item Value Reference Range Interpretation Comme nts HEMOGLOBIN A1c (test code = 14242) 5.7 % 4.2-5.6 H [employer] GUIDELINES FOR HGB A1C: [...] ETC.). CONSIDER ALTERNATE TESTING OR LABORATORY CONSULTATION. HEMOGLOBIN [id number] 00:00:00* Test Item Value Reference Range Interpretation Comme nts HEMOGLOBIN A1c (test code = 81577) 5.7 % Sergei Negrete AustinLIPID [id number] 00:00:00* Test Item Value Reference Range Interpretation Comme nts CHOLESTEROL (test code = 2210) 422 MG/DL TRIGLYCERIDES (test code = 2232) 350 MG/DL HDL CHOLESTEROL (test code = 2220) 36 MG/DL CALC LDL CHOL (test code = 2237) 327 MG/DL RISK RATIO LDL/HDL (test cod e = 2238) 9.08 RATIO Sergei HerreraCOMPREHENSIVE METABOLIC [id number] 00:00:00* Test Item Value Reference Range Interpretation Comme nts GLUCOSE (test code = 2217) 102 MG/DL BUN (test code = 220) 9 MG/DL CREATININE (test code = 2214) 0.95 MG/DL eGFR (2020 CKD-EPI) (test co de = 81647) 72 ML/MIN/1.73 CALC BUN/CREAT (test code = 2235) 9 RATIO SODIUM (test code = 223) 140 MEQ/L POTASSIUM (test code = 2228) 4.3 MEQ/L CHLORIDE (test code = 2215) 98 MEQ/L CARBON DIOXIDE (test code = 2206) 25 MEQ/L CALCIUM (test code = 2209) 9.6 MG/DL PROTEIN, TOTAL (test code = 222) 8.0 G/DL ALBUMIN (test code = 220) 5.2 G/DL CALC GLOBULIN (test code = 2240) 2.8 G/DL CALC A/G RATIO (test code = 2234) 1.9 RATIO BILIRUBIN, TOTAL (test code = 2206) 0.4 MG/DL ALKALINE PHOSPHATASE (test code = 2204) 75 U/L AST (test code = 2218) 44 U/L ALT (test code = 2219) 18 U/L Sergei HerreraTSH, THIRD [id number] 00:00:00* Test Item Value Reference Range Interpretation Comme nts TSH, THIRD GENERATION (test code = 2821) >100.000 UIU/ML Sergei HerreraHEMOGLOBIN [id number] 00:00:00* Test Item Value Reference Range Interpretation Comme nts HEMOGLOBIN A1c (test code = 22978) 5.7 % Sergei HerreraLIPID [id number] 00:00:00* Test Item Value Reference Range Interpretation Comme nts CHOLESTEROL (test code = 2210) 422 MG/DL TRIGLYCERIDES (test code = 2232) 350 MG/DL HDL CHOLESTEROL (test code = 2220) 36 MG/DL CALC LDL CHOL (test code = 2237) 327 MG/DL RISK RATIO LDL/HDL (test cod e = 2238) 9.08 RATIO Sergei HerreraCOMPREHENSIVE METABOLIC [id number] 00:00:00* Test Item Value Reference Range Interpretation Comme nts GLUCOSE (test code = 2217) 102 MG/DL BUN (test code = 2208) 9 MG/DL CREATININE (test code = 2214) 0.95 MG/DL eGFR (2020 CKD-EPI) (test co de = 26348) 72 ML/MIN/1.73 CALC BUN/CREAT (test code = 2235) 9 RATIO SODIUM (test code = 2231) 140 MEQ/L POTASSIUM (test code = 2228) 4.3 MEQ/L CHLORIDE (test code = 2215) 98 MEQ/L CARBON DIOXIDE (test code = 2206) 25 MEQ/L CALCIUM (test code = 2209) 9.6 MG/DL PROTEIN, TOTAL (test code = 2229) 8.0 G/DL ALBUMIN (test code = 2201) 5.2 G/DL CALC GLOBULIN (test code = 2240) 2.8 G/DL CALC A/G RATIO (test code = 2234) 1.9 RATIO BILIRUBIN, TOTAL (test code = 2207) 0.4 MG/DL ALKALINE PHOSPHATASE (test code = 2204) 75 U/L AST (test code = 2218) 44 U/L ALT (test code = 2219) 18 U/L Sergei HerreraTSH, THIRD [id number] 00:00:00* Test Item Value Reference Range Interpretation Comme nts TSH, THIRD GENERATION (test code = 2821) >100.000 UIU/ML Sergei HerreraHEMOGLOBIN [id number] 00:00:00* Test Item Value Reference Range Interpretation Comme nts HEMOGLOBIN A1c (test code = 89041) 5.7 % Sergei HerreraLIPID [id number] 00:00:00* Test Item Value Reference Range Interpretation Comme nts CHOLESTEROL (test code = 2210) 422 MG/DL TRIGLYCERIDES (test code = 2232) 350 MG/DL HDL CHOLESTEROL (test code = 2220) 36 MG/DL CALC LDL CHOL (test code = 2237) 327 MG/DL RISK RATIO LDL/HDL (test cod e = 2238) 9.08 RATIO Sergei HerreraCOMPREHENSIVE METABOLIC [id number] 00:00:00* Test Item Value Reference Range Interpretation Comme nts GLUCOSE (test code = 2217) 102 MG/DL BUN (test code = 2208) 9 MG/DL CREATININE (test code = 2214) 0.95 MG/DL eGFR (2020 CKD-EPI) (test co de = 17406) 72 ML/MIN/1.73 CALC BUN/CREAT (test code = 2235) 9 RATIO SODIUM (test code = 2231) 140 MEQ/L POTASSIUM (test code = 2228) 4.3 MEQ/L CHLORIDE (test code = 2215) 98 MEQ/L CARBON DIOXIDE (test code = 2206) 25 MEQ/L CALCIUM (test code = 2209) 9.6 MG/DL PROTEIN, TOTAL (test code = 2229) 8.0 G/DL ALBUMIN (test code = 2201) 5.2 G/DL CALC GLOBULIN (test code = 2240) 2.8 G/DL CALC A/G RATIO (test code = 2234) 1.9 RATIO BILIRUBIN, TOTAL (test code = 2207) 0.4 MG/DL ALKALINE PHOSPHATASE (test code = 2204) 75 U/L AST (test code = 2218) 44 U/L ALT (test code = 2219) 18 U/L Sergei HerreraTSH, THIRD [id number] 00:00:00* Test Item Value Reference Range Interpretation Comme nts TSH, THIRD GENERATION (test code = 2821) >100.000 UIU/ML Sergei HerreraHEMOGLOBIN [id number] 00:00:00* Test Item Value Reference Range Interpretation Comme nts HEMOGLOBIN A1c (test code = 62054) 5.7 % Sergei HerreraLIPID [id number] 00:00:00* Test Item Value Reference Range Interpretation Comme nts CHOLESTEROL (test code = 2210) 422 MG/DL TRIGLYCERIDES (test code = 2232) 350 MG/DL HDL CHOLESTEROL (test code = 2220) 36 MG/DL CALC LDL CHOL (test code = 2237) 327 MG/DL RISK RATIO LDL/HDL (test cod e = 2238) 9.08 RATIO Sergei HerreraCOMPREHENSIVE METABOLIC [id number] 00:00:00* Test Item Value Reference Range Interpretation Comme nts GLUCOSE (test code = 2217) 102 MG/DL BUN (test code = 2208) 9 MG/DL CREATININE (test code = 2214) 0.95 MG/DL eGFR (2020 CKD-EPI) (test co de = 14991) 72 ML/MIN/1.73 CALC BUN/CREAT (test code = 2235) 9 RATIO SODIUM (test code = 2231) 140 MEQ/L POTASSIUM (test code = 2228) 4.3 MEQ/L CHLORIDE (test code = 2215) 98 MEQ/L CARBON DIOXIDE (test code = 2206) 25 MEQ/L CALCIUM (test code = 2209) 9.6 MG/DL PROTEIN, TOTAL (test code = 2229) 8.0 G/DL ALBUMIN (test code = 2201) 5.2 G/DL CALC GLOBULIN (test code = 2240) 2.8 G/DL CALC A/G RATIO (test code = 2234) 1.9 RATIO BILIRUBIN, TOTAL (test code = 2207) 0.4 MG/DL ALKALINE PHOSPHATASE (test code = 220) 75 U/L AST (test code = 2218) 44 U/L ALT (test code = 2219) 18 U/L Sergei Mcfadden, THIRD [id number] 00:00:00* Test Item Value Reference Range Interpretation Comme nts TSH, THIRD GENERATION (test code = 2821) >100.000 UIU/ML Sergei HerreraOCCULT BLD,FECAL,IMMUNOASSAY [id number] 11:26:24* Test Item Value Reference Range Interpretation Comme nts OCCULT BLD, FECAL (test code = 98525) NEGATIVE NEGATIVE [facility] has important pathology staff changes effective 10/12/2022. New pathology staff will provide uninterrupted, excellent patient care and clinical consultation. See URL: [email or web address]. UNLESS OTHERWISE INDICATED, ALL TESTING PERFORMED AT [facility] [address] [place] [id number] RETRIEVAL SPECIALIST: ROCIO SOTO M.D. CLIA NUMBER [id number] [facility] [place]. [id number] OCCULT BLD,FECAL,IMMUNOASSAY [id number] 00:00:00* Test Item Value Reference Range Interpretation Comme nts OCCULT BLD, FECAL (test code = 95585) NEGATIVE Sergei F AustinOCCULT BLD,FECAL,IMMUNOASSAY [id number] 00:00:00* Test Item Value Reference Range Interpretation Comme nts OCCULT BLD, FECAL (test code = 98754) NEGATIVE Sergei F AustinOCCULT BLD,FECAL,IMMUNOASSAY [id number] 00:00:00* Test Item Value Reference Range Interpretation Comme nts OCCULT BLD, FECAL (test code = 01415) NEGATIVE Sergei HerreraOCCULT BLD,FECAL,IMMUNOASSAY [id number] 00:00:00* Test Item Value Reference Range Interpretation Comme nts OCCULT BLD, FECAL (test code = 76527) NEGATIVE Sergei HerreraTSH, THIRD [id number] 08:52:55* Test Item Value Reference Range Interpretation Comme nts TSH, THIRD GENERATION (test code = 2821) 0.446 UIU/ML 0.400-4.100 LIPID [id number] 06:45:32* Test Item Value Reference Range Interpretation Comme nts CHOLESTEROL (test code = 2210) 143 MG/DL <200 TRIGLYCERIDES (test code = 2232) 176 MG/DL <150 H HDL CHOLESTEROL (test code = 2220) 37 MG/DL >39 L CALC LDL CHOL (test code = 7) 79 MG/DL <100 NOTE: CALCULATED LDL IS BASED ON SVETLANA-GREER METHOD WHICHINCLUDES ADJUSTABLE TRIGLYCERIDE:VLDL CHOLESTEROL RATIO.THIS FACTOR VARIES BY MEASURED TRIGLYCERIDE AND NON-HDLCHOLESTEROL CONCENTRATIONS WITH INCREASED CALCULATED LDL SEENIN HIGHER TRIGLYCERIDE OR LOWER NON-HDL SPECIMENS. FOR MOREINFORMATION, SEE CLIENT ANNOUNCEMENT AT [email or web address] RISK RATIO LDL/HDL (test code = 223) 2.14 RATIO <3.22 COMPREHENSIVE METABOLIC [id number] 06:45:32* Test Item Value Reference Range Interpretation Comme nts GLUCOSE (test code = 7) 98 MG/DL 70-99 BUN (test code = 2207) 9 MG/DL 6-20 CREATININE (test code = 2214) 0.61 MG/DL 0.60-1.30 eGFR (2020 CKD-EPI) (test code = 06131) 108 ML/MIN/1.73 >60 CALC BUN/CREAT (test code = 2235) 15 RATIO 6-28 SODIUM (test code = 223) 141 MEQ/L 133-146 POTASSIUM (test code = 2228) 4.1 MEQ/L 3.5-5.4 CHLORIDE (test code = 2215) 102 MEQ/L 95-107 CARBON DIOXIDE (test code = 6) 23 MEQ/L 19-31 CALCIUM (test code = 2209) 9.6 MG/DL 8.5-10.5 PROTEIN, TOTAL (test code = 2229) 7.6 G/DL 6.1-8.3 ALBUMIN (test code = 2201) 4.7 G/DL 3.5-5.2 CALC GLOBULIN (test code = 2240) 2.9 G/DL 1.9-3.7 CALC A/G RATIO (test code = 2234) 1.6 RATIO 1.0-2.6 BILIRUBIN, TOTAL (test code = 2207) 0.4 MG/DL See_Comment [Automated me ssage] The system which generated this result transmitted reference range: <=1.2. The reference range was not used to interpret this result as normal/abnormal. ALKALINE PHOSPHATASE (test code = 2204) 107 U/L 40-130 AST (test code = 2218) 13 U/L 9-40 ALT (test code = 2219) 12 U/L 5-40 HEMOGLOBIN [id number] 02:49:41* Test Item Value Reference Range Interpretation Comme nts HEMOGLOBIN A1c (test code = 55397) 5.7 % 4.2-5.6 H UNLESS OTHERWISE INDICATED, ALL TESTING PERFORMED [facility] [address] [place] [address] RETRIEVAL SPECIALIST: MADIE CHAIDEZ M.D. CLIA NUMBER [id number] [facility] [place]. [id number] LIPID [id number] 00:00:00* Test Item Value Reference Range Interpretation Comme nts CHOLESTEROL (test code = 2210) 143 MG/DL TRIGLYCERIDES (test code = 2232) 176 MG/DL HDL CHOLESTEROL (test code = 2220) 37 MG/DL CALC LDL CHOL (test code = 2237) 79 MG/DL RISK RATIO LDL/HDL (test cod e = 2238) 2.14 RATIO Sergei HerreraCOMPREHENSIVE METABOLIC [id number] 00:00:00* Test Item Value Reference Range Interpretation Comme nts GLUCOSE (test code = 2217) 98 MG/DL BUN (test code = 2208) 9 MG/DL CREATININE (test code = 2214) 0.61 MG/DL eGFR (2020 CKD-EPI) (test code = 99249) 108 ML/MIN/1.73 CALC BUN/CREAT (test code = 2235) 15 RATIO SODIUM (test code = 2231) 141 MEQ/L POTASSIUM (test code = 2228) 4.1 MEQ/L CHLORIDE (test code = 2215) 102 MEQ/L CARBON DIOXIDE (test code = 2206) 23 MEQ/L CALCIUM (test code = 2209) 9.6 MG/DL PROTEIN, TOTAL (test code = 2229) 7.6 G/DL ALBUMIN (test code = 2201) 4.7 G/DL CALC GLOBULIN (test code = 2240) 2.9 G/DL CALC A/G RATIO (test code = 2234) 1.6 RATIO BILIRUBIN, TOTAL (test code = 2207) 0.4 MG/DL ALKALINE PHOSPHATASE (test code = 2204) 107 U/L AST (test code = 2218) 13 U/L ALT (test code = 2219) 12 U/L Sergei HerreraTSH, THIRD [id number] 00:00:00* Test Item Value Reference Range Interpretation Comme nts TSH, THIRD GENERATION (test code = 2821) 0.446 UIU/ML Sergei HerreraHEMOGLOBIN [id number] 00:00:00* Test Item Value Reference Range Interpretation Comme nts HEMOGLOBIN A1c (test code = 46696) 5.7 % Sergei HerreraLIPID [id number] 00:00:00* Test Item Value Reference Range Interpretation Comme nts CHOLESTEROL (test code = 2210) 143 MG/DL TRIGLYCERIDES (test code = 2232) 176 MG/DL HDL CHOLESTEROL (test code = 2220) 37 MG/DL CALC LDL CHOL (test code = 2237) 79 MG/DL RISK RATIO LDL/HDL (test cod e = 2238) 2.14 RATIO Sergei HerreraCOMPREHENSIVE METABOLIC [id number] 00:00:00* Test Item Value Reference Range Interpretation Comme nts GLUCOSE (test code = 2217) 98 MG/DL BUN (test code = 2208) 9 MG/DL CREATININE (test code = 2214) 0.61 MG/DL eGFR (2020 CKD-EPI) (test code = 82735) 108 ML/MIN/1.73 CALC BUN/CREAT (test code = 2235) 15 RATIO SODIUM (test code = 2231) 141 MEQ/L POTASSIUM (test code = 2228) 4.1 MEQ/L CHLORIDE (test code = 2215) 102 MEQ/L CARBON DIOXIDE (test code = 2206) 23 MEQ/L CALCIUM (test code = 2209) 9.6 MG/DL PROTEIN, TOTAL (test code = 2229) 7.6 G/DL ALBUMIN (test code = 2201) 4.7 G/DL CALC GLOBULIN (test code = 2240) 2.9 G/DL CALC A/G RATIO (test code = 2234) 1.6 RATIO BILIRUBIN, TOTAL (test code = 2207) 0.4 MG/DL ALKALINE PHOSPHATASE (test code = 2204) 107 U/L AST (test code = 2218) 13 U/L ALT (test code = 2219) 12 U/L Sergei HerreraTSH, THIRD [id number] 00:00:00* Test Item Value Reference Range Interpretation Comme nts TSH, THIRD GENERATION (test code = 2821) 0.446 UIU/ML Sergei HerreraHEMOGLOBIN [id number] 00:00:00* Test Item Value Reference Range Interpretation Comme nts HEMOGLOBIN A1c (test code = 22743) 5.7 % Sergei HerreraLIPID [id number] 00:00:00* Test Item Value Reference Range Interpretation Comme nts CHOLESTEROL (test code = 2210) 143 MG/DL TRIGLYCERIDES (test code = 2232) 176 MG/DL HDL CHOLESTEROL (test code = 2220) 37 MG/DL CALC LDL CHOL (test code = 2237) 79 MG/DL RISK RATIO LDL/HDL (test cod e = 2238) 2.14 RATIO Sergei HerreraCOMPREHENSIVE METABOLIC [id number] 00:00:00* Test Item Value Reference Range Interpretation Comme nts GLUCOSE (test code = 2217) 98 MG/DL BUN (test code = 2208) 9 MG/DL CREATININE (test code = 2214) 0.61 MG/DL eGFR (2020 CKD-EPI) (test code = 46733) 108 ML/MIN/1.73 CALC BUN/CREAT (test code = 2235) 15 RATIO SODIUM (test code = 2231) 141 MEQ/L POTASSIUM (test code = 2228) 4.1 MEQ/L CHLORIDE (test code = 2215) 102 MEQ/L CARBON DIOXIDE (test code = 2206) 23 MEQ/L CALCIUM (test code = 2209) 9.6 MG/DL PROTEIN, TOTAL (test code = 2229) 7.6 G/DL ALBUMIN (test code = 2201) 4.7 G/DL CALC GLOBULIN (test code = 2240) 2.9 G/DL CALC A/G RATIO (test code = 2234) 1.6 RATIO BILIRUBIN, TOTAL (test code = 2207) 0.4 MG/DL ALKALINE PHOSPHATASE (test code = 2204) 107 U/L AST (test code = 2218) 13 U/L ALT (test code = 2219) 12 U/L Sergei HerreraTSH, THIRD [id number] 00:00:00* Test Item Value Reference Range Interpretation Comme bulmaro TSH, THIRD GENERATION (test code = 2821) 0.446 UIU/ML Sergei HerreraHEMOGLOBIN [id number] 00:00:00* Test Item Value Reference Range Interpretation Comme bulmaro HEMOGLOBIN A1c (test code = 02698) 5.7 % Sergei HerreraLIPID [id number] 00:00:00* Test Item Value Reference Range Interpretation Comme nts CHOLESTEROL (test code = 2210) 143 MG/DL TRIGLYCERIDES (test code = 2232) 176 MG/DL HDL CHOLESTEROL (test code = 2220) 37 MG/DL CALC LDL CHOL (test code = 2237) 79 MG/DL RISK RATIO LDL/HDL (test cod e = 2238) 2.14 RATIO Sergei HerreraCOMPREHENSIVE METABOLIC [id number] 00:00:00* Test Item Value Reference Range Interpretation Comme nts GLUCOSE (test code = 2217) 98 MG/DL BUN (test code = 2208) 9 MG/DL CREATININE (test code = 2214) 0.61 MG/DL eGFR (2020 CKD-EPI) (test code = 69044) 108 ML/MIN/1.73 CALC BUN/CREAT (test code = 2235) 15 RATIO SODIUM (test code = 2231) 141 MEQ/L POTASSIUM (test code = 2228) 4.1 MEQ/L CHLORIDE (test code = 2215) 102 MEQ/L CARBON DIOXIDE (test code = 2206) 23 MEQ/L CALCIUM (test code = 2209) 9.6 MG/DL PROTEIN, TOTAL (test code = 2229) 7.6 G/DL ALBUMIN (test code = 2201) 4.7 G/DL CALC GLOBULIN (test code = 2240) 2.9 G/DL CALC A/G RATIO (test code = 2234) 1.6 RATIO BILIRUBIN, TOTAL (test code = 2207) 0.4 MG/DL ALKALINE PHOSPHATASE (test code = 2204) 107 U/L AST (test code = 2218) 13 U/L ALT (test code = 2219) 12 U/L Sergei Mcfadden THIRD [id number] 00:00:00* Test Item Value Reference Range Interpretation Comme bulmaro TSH, THIRD GENERATION (test code = 2821) 0.446 UIU/ML Sergei HerreraHEMOGLOBIN [id number] 00:00:00* Test Item Value Reference Range Interpretation Comme bulmaro HEMOGLOBIN A1c (test code = 87677) 5.7 % Sergei Mcfadden THIRD [id number] 09:45:16* Test Item Value Reference Range Interpretation Comme bulmaro TSH, THIRD GENERATION (test code = 2821) 5.950 UIU/ML 0.400-4.100 H UNLESS OTHERWISE INDICATED, ALL TESTING PERFORMED [facility] [address] [place] [address] RETRIEVAL SPECIALIST: MADIE CHAIDEZ M.D. CLIA NUMBER [id number] [facility] [place]. [id number] LIPID [id number] 06:03:19* Test Item Value Reference Range Interpretation [...] SPECIMENS. FOR MOREINFORMATION, SEE CLIENT ANNOUNCEMENT AT [email or web address] RISK RATIO LDL/HDL (test code = 2238) 4.89 RATIO <3.22 H COMPREHENSIVE METABOLIC [id number] 06:03:19* Test Item Value Reference Range Interpretation Comme nts GLUCOSE (test code = 2216) 105 MG/DL 70-99 H BUN (test code = 2207) 8 MG/DL 6-20 CREATININE (test code = 2213) 0.66 MG/DL 0.60-1.30 eGFR (2020 CKD-EPI) (test code = 96100) 107 ML/MIN/1.73 >60 CALC BUN/CREAT (test code = 2234) 12 RATIO 6-28 SODIUM (test code = 223) 139 MEQ/L 133-146 POTASSIUM (test code = 222) 4.6 MEQ/L 3.5-5.4 CHLORIDE (test code = 2214) 102 MEQ/L 95-107 CARBON DIOXIDE (test code = 2205) 26 MEQ/L 19-31 CALCIUM (test code = 2208) 9.8 MG/DL 8.5-10.5 PROTEIN, TOTAL (test code = 2228) 7.7 G/DL 6.1-8.3 ALBUMIN (test code = 2200) 4.5 G/DL 3.5-5.2 CALC GLOBULIN (test code = 2239) 3.2 G/DL 1.9-3.7 CALC A/G RATIO (test code = 2233) 1.4 RATIO 1.0-2.6 BILIRUBIN, TOTAL (test code = 2206) 0.3 MG/DL See_Comment [Automated me ssage] The system which generated this result transmitted reference range: <=1.2. The reference range was not used to interpret this result as normal/abnormal. ALKALINE PHOSPHATASE (test code = 2203) 102 U/L 40-128 AST (test code = 2217) 44 U/L 9-40 H ALT (test code = 2219) 27 U/L 5-40 HEMOGLOBIN [id number] 06:03:15* Test Item Value Reference Range Interpretation Comme nts HEMOGLOBIN A1c (test code = 92360) 6.0 % 4.2-5.6 H CBC W/AUTO DIFF WITH [id number] 05:24:42* Test Item Value Reference Range Interpretation [...] = 1065) 0.0 /100 WBC'S See_Comment [Automated Gametime[employer] ge] The system which generated this result [...] 0.00-0.10 ABS NUCLEATED RBCS (test code = 34573) 0.00 K/UL 0.00-0.11 CBC W/AUTO [id number] 00:00:00* Test Item Value Reference Range Interpretation [...] ABS NUCLEATED RBCS (test cod e = 72991) 0.00 K/UL Sergei HerreraHEMOGLOBIN [id number] 00:00:00* Test Item Value Reference Range Interpretation Comme nts HEMOGLOBIN A1c (test code = 02002) 6.0 % Sergei HerreraCBC W/AUTO [id number] 00:00:00* Test Item Value Reference Range Interpretation [...] ABS NUCLEATED RBCS (test cod e = 68873) 0.00 K/UL LIPID [id number] 00:00:00* Test Item Value Reference Range Interpretation Comme nts CHOLESTEROL (test code = 2210) 256 MG/DL TRIGLYCERIDES (test code = 2232) 223 MG/DL HDL CHOLESTEROL (test code = 2220) 37 MG/DL CALC LDL CHOL (test code = 2237) 181 MG/DL RISK RATIO LDL/HDL (test cod e = 2238) 4.89 RATIO Sergei F AustinHEMOGLOBIN [id number] 00:00:00* Test Item Value Reference Range Interpretation Comme nts HEMOGLOBIN A1c (test code = 91668) 6.0 % COMPREHENSIVE METABOLIC [id number] 00:00:00* Test Item Value Reference Range Interpretation Comme nts GLUCOSE (test code = 2217) 105 MG/DL BUN (test code = 2208) 8 MG/DL CREATININE (test code = 2214) 0.66 MG/DL eGFR (2020 CKD-EPI) (test code = 29414) 107 ML/MIN/1.73 CALC BUN/CREAT (test code = [...] ALT (test code = 2219) 27 U/L Sergei Negrete AustinLIPID [id number] 00:00:00* Test Item Value Reference Range Interpretation Comme nts CHOLESTEROL (test code = 2210) 256 MG/DL TRIGLYCERIDES (test code = 2232) 223 MG/DL HDL CHOLESTEROL (test code = 2220) 37 MG/DL CALC LDL CHOL (test code = 2237) 181 MG/DL RISK RATIO LDL/HDL (test cod e = 2238) 4.89 RATIO [id number] 00:00:00* Test Item Value Reference Range Interpretation Comme nts TSH, THIRD GENERATION (test code = 2821) 5.950 UIU/ML Sergei HerreraCOMPREHENSIVE METABOLIC [id number] 00:00:00* Test Item Value Reference Range Interpretation Comme nts GLUCOSE (test code = 2217) 105 MG/DL BUN (test code = 2208) 8 MG/DL CREATININE (test code = 2214) 0.66 MG/DL eGFR (2020 CKD-EPI) (test code = 65554) 107 ML/MIN/1.73 CALC BUN/CREAT (test code = [...] ALT (test code = 2219) 27 U/L [id number] 00:00:00* Test Item Value Reference Range Interpretation Comme nts TSH, THIRD GENERATION (test code = 2821) 5.950 UIU/ML CBC W/AUTO [id number] 00:00:00* Test Item Value Reference Range Interpretation [...] ABS NUCLEATED RBCS (test cod e = 09899) 0.00 K/UL CBC W/AUTO [id number] 00:00:00* Test Item Value Reference Range Interpretation [...] ABS NUCLEATED RBCS (test cod e = 68110) 0.00 K/UL Sergei Negrete AustinHEMOGLOBIN [id number] 00:00:00* Test Item Value Reference Range Interpretation Comme nts HEMOGLOBIN A1c (test code = 28880) 6.0 % HEMOGLOBIN [id number] 00:00:00* Test Item Value Reference Range Interpretation Comme nts HEMOGLOBIN A1c (test code = 13492) 6.0 % Sergei Negrete AustinLIPID [id number] 00:00:00* Test Item Value Reference Range Interpretation Comme nts CHOLESTEROL (test code = 2210) 256 MG/DL TRIGLYCERIDES (test code = 2232) 223 MG/DL HDL CHOLESTEROL (test code = 2220) 37 MG/DL CALC LDL CHOL (test code = 2237) 181 MG/DL RISK RATIO LDL/HDL (test cod e = 2238) 4.89 RATIO COMPREHENSIVE METABOLIC [id number] 00:00:00* Test Item Value Reference Range Interpretation Comme nts GLUCOSE (test code = 2217) 105 MG/DL BUN (test code = 2208) 8 MG/DL CREATININE (test code = 2214) 0.66 MG/DL eGFR (2020 CKD-EPI) (test code = 84215) 107 ML/MIN/1.73 CALC BUN/CREAT (test code = [...] ALT (test code = 2219) 27 U/L [id number] 00:00:00* Test Item Value Reference Range Interpretation Comme nts TSH, THIRD GENERATION (test code = 2821) 5.950 UIU/ML LIPID [id number] 00:00:00* Test Item Value Reference Range Interpretation Comme nts CHOLESTEROL (test code = 2210) 256 MG/DL TRIGLYCERIDES (test code = 2232) 223 MG/DL HDL CHOLESTEROL (test code = 2220) 37 MG/DL CALC LDL CHOL (test code = 2237) 181 MG/DL RISK RATIO LDL/HDL (test cod e = 2238) 4.89 RATIO Sergei F AustinCOMPREHENSIVE METABOLIC [id number] 00:00:00* Test Item Value Reference Range Interpretation Comme nts GLUCOSE (test code = 2217) 105 MG/DL BUN (test code = 2208) 8 MG/DL CREATININE (test code = 2214) 0.66 MG/DL eGFR (2020 CKD-EPI) (test code = 39565) 107 ML/MIN/1.73 CALC BUN/CREAT (test code = [...] ALT (test code = 2219) 27 U/L Sergei [id number] 00:00:00* Test Item Value Reference Range Interpretation Comme nts TSH, THIRD GENERATION (test code = 2821) 5.950 UIU/ML Sergei HerreraCBC W/AUTO [id number] 00:00:00* Test Item Value Reference Range Interpretation [...] ABS NUCLEATED RBCS (test cod e = 66929) 0.00 K/UL Sergei HerreraHEMOGLOBIN [id number] 00:00:00* Test Item Value Reference Range Interpretation Comme bulmaro HEMOGLOBIN A1c (test code = 01174) 6.0 % Sergei HerreraLIPID [id number] 00:00:00* Test Item Value Reference Range Interpretation Comme nts CHOLESTEROL (test code = 2210) 256 MG/DL TRIGLYCERIDES (test code = 2232) 223 MG/DL HDL CHOLESTEROL (test code = 2220) 37 MG/DL CALC LDL CHOL (test code = 2237) 181 MG/DL RISK RATIO LDL/HDL (test cod e = 2238) 4.89 RATIO Sergei HerreraCOMPREHENSIVE METABOLIC [id number] 00:00:00* Test Item Value Reference Range Interpretation Comme nts GLUCOSE (test code = 2217) 105 MG/DL BUN (test code = 2208) 8 MG/DL CREATININE (test code = 2214) 0.66 MG/DL eGFR (2020 CKD-EPI) (test code = 98538) 107 ML/MIN/1.73 CALC BUN/CREAT (test code = [...] ALT (test code = 2219) 27 U/L Sergei [id number] 00:00:00* Test Item Value Reference Range Interpretation Comme nts TSH, THIRD GENERATION (test code = 2821) 5.950 UIU/ML Sergei HerreraCBC W/AUTO [id number] 00:00:00* Test Item Value Reference Range Interpretation [...] ABS NUCLEATED RBCS (test cod e = 51629) 0.00 K/UL Sergei HerreraHEMOGLOBIN [id number] 00:00:00* Test Item Value Reference Range Interpretation Comme nts HEMOGLOBIN A1c (test code = 69194) 6.0 % Sergei HerreraLIPID [id number] 00:00:00* Test Item Value Reference Range Interpretation Comme nts CHOLESTEROL (test code = 2210) 256 MG/DL TRIGLYCERIDES (test code = 2232) 223 MG/DL HDL CHOLESTEROL (test code = 2220) 37 MG/DL CALC LDL CHOL (test code = 2237) 181 MG/DL RISK RATIO LDL/HDL (test cod e = 2238) 4.89 RATIO Sergei HerreraCOMPREHENSIVE METABOLIC [id number] 00:00:00* Test Item Value Reference Range Interpretation Comme nts GLUCOSE (test code = 2217) 105 MG/DL BUN (test code = 2208) 8 MG/DL CREATININE (test code = 2214) 0.66 MG/DL eGFR (2020 CKD-EPI) (test code = 80317) 107 ML/MIN/1.73 CALC BUN/CREAT (test code = [...] ALT (test code = 2219) 27 U/L Sergei [id number] 00:00:00* Test Item Value Reference Range Interpretation Comme nts TSH, THIRD GENERATION (test code = 2821) 5.950 UIU/ML Sergei HerreraPOCT URINALYSIS W/O SPECIFIC [id number] 21:15:00* Test Item Value Reference Range Interpretation [...] [facility] Notes Date/Time Note Provider Source Sergei FTanya [facility]2025-04-07 00:00:00 Sergei PenelopeTanya [facility]2024-12-02 00:00:00 [facility]2024-09-18 00:00:00 [facility]
[2025-05-13] MEDS ORDERED: HYDROCODONE/APAP 5/325 MG TAB ONE (14:58)
[2025-05-13] MEDS ORDERED: IBUPROFEN 200 MG TAB PO ONE (14:59)
--- NOTE | 2025-05-13 16:21 | RAD REPORT ---
EXAMINATION: XR Ankle Left 3 View CLINICAL INDICATION: Female, 55 years old. [facility] Bed Name: IW1 TECHNIQUE: 3 view radiographs of the left ankle were obtained. COMPARISON: No prior exam. FINDINGS: No bone or joint abnormality seen. IMPRESSION: No acute or significant abnormalities.
--- NOTE | 2025-05-13 16:24 | ER ---
Nurse's Notes [facility] Name: Keesha Pedroza Age: 55 yrs Sex: Female : 1970 Arrival Date: 05/13/2025 Time: 14:38 Bed 11 Private MD: Diagnosis: Sprain of ankle Presentation: 05/13 14:50 Chief complaint: Patient states: stepped off the porch at 2:30 this morning, felt and iw heard a pop in left ankle. Coronavirus screen: At this time, the client does not indicate any symptoms associated with coronavirus-19. Ebola Screen: No symptoms or risks identified at this time. Initial Sepsis Screen: Does the patient meet any 2 criteria? No. Patient's initial sepsis screen is negative. Does the patient have a suspected source of infection?. Risk Assessment: Do you want to hurt yourself or someone else? Patient reports no desire to harm self or others. Onset of symptoms was May 13, 2025. 14:50 Method Of Arrival: Wheelchair iw 14:50 Acuity: MARY 4 iw Historical: - Allergies: 14:51 No Known Allergies; iw - PMHx: 14:51 Anemia; Asthma; Bronchitis; COPD; Headaches; Hypothyroidism; Seizures; iw - PSHx: 14:51 section; iw - Immunization history:: Adult Immunizations up to date. - Infectious Disease History:: Denies. - Social history:: Smoking status: Patient reports the use of cigarette tobacco products, smokes one-half pack cigarettes per day. Screenin:16 [facility] ED Fall Risk Assessment (Adult) History of falling in the last 3 months, af3 including since admission No falls in past 3 months (0 pts) Confusion or Disorientation No (0 pts) Intoxicated or Sedated No (0 pts) Impaired Gait No (0 pts) Mobility Assist Device Used No (0 pt) Altered Elimination No (0 pt) Score/Fall Risk Level 0 - 2 = Low Risk Oriented to surroundings, Maintained a safe environment, Educated pt \T\ family on fall prevention, incl call for assistance when getting out of bed. Abuse screen: Denies threats or abuse. Denies injuries from another. Nutritional screening: No deficits noted. Tuberculosis screening: No symptoms or risk factors identified. Assessment: 15:16 General: Appears in no apparent distress. comfortable, well groomed, well developed, af3 Behavior is calm, cooperative, appropriate for age. Pain: Complains of pain in anterior aspect of left ankle and dorsum of left foot Pain currently is 5 out of 10 on a pain scale. Neuro: Level of Consciousness is awake, alert, obeys commands, Oriented to person, place, time, situation, Appropriate for age. Cardiovascular: Patient's skin is warm and dry. Respiratory: Airway is patent Respiratory effort is even, unlabored, Respiratory pattern is regular, symmetrical. Musculoskeletal: Circulation, motion, and sensation intact. 16:05 Reassessment: Patient appears in no apparent distress at this time. Patient and/or af3 family updated on plan of care and expected duration. Pain level reassessed. Patient is alert, oriented x 3, equal unlabored respirations, skin warm/dry/pink. Vital Signs: 14:50 BP 122 / 82; Pulse 89; Resp 20; Temp 97.8; Pulse Ox 95% on R/A; Weight 104.33 kg; iw Height 5 ft. 7 in. ; Pain 6/10; 14:50 Body Mass Index 36.02 (104.33 kg, 170.18 cm) iw 14:50 Pain Scale: Adult iw ED Course: 14:42 Patient arrived in ED. al6 14:43 [facility]C [facility] kb 14:43 Nitin Ludwig DO is Attending Physician. kb 14:51 Triage completed. iw 14:52 Arm band placed on. iw 15:01 Ankle Left 3 View XRAY In Process Unspecified. EDMS 15:11 Meena Calloway, RN is Primary Nurse. af3 15:16 Patient has correct armband on for positive identification. Bed in low position. Call af3 light in reach. Provided Education on: call light use . 15:16 No provider procedures requiring assistance completed. af3 17:13 Patient did not have IV access during this emergency room visit. af3 Administered Medications: 15:10 Drug: Ibuprofen PO 600 mg PO once Route: PO; iw 16:07 Follow up: Response: No adverse reaction af3 15:10 Drug: HYDROcodone-acetaminophen PO 5 mg-325 mg 1 tabs PO once Route: PO; iw 16:07 Follow up: Response: No adverse reaction af3 Medication: 15:16 VIS not applicable for this client. af3 Outcome: 16:23 Discharge ordered by MD. kramer 17:12 Discharged to home with crutches, af3 17:12 Condition: stable 17:12 Discharge instructions given to patient, Instructed on discharge instructions, follow up and referral plans. medication usage, Demonstrated understanding of instructions, follow-up care, medications, Prescriptions given X 1, 17:13 Patient left the ED. af3 Signatures: Dispatcher [employer] EDKacey Nuñez, BING-Syd SMART-Wendi Cheney RN RN iw Meena Calloway RN RN af3 Paulette Arauz6
--- NOTE | 2025-05-13 16:24 | EDPHYS ---
Physician Documentation [facility] Name: Keesha Pedroza Age: 55 yrs Sex: Female : 1970 Arrival Date: 05/13/2025 Time: 14:38 Bed 11 Private MD: ED Physician Nitin Ludwig HPI: 05/13 14:51 This 55 yrs old Female presents to ER via Unassigned with complaints of Foot Injury. kb 14:51 Pt is a 55 year old female who presents for left ankle pain that started at 1030 this kb morning after stepping into a hole. Denies any other injury or trauma. . Historical: - Allergies: 14:51 No Known Allergies; iw - PMHx: 14:51 Anemia; Asthma; Bronchitis; COPD; Headaches; Hypothyroidism; Seizures; iw - PSHx: 14:51 section; iw - Immunization history:: Adult Immunizations up to date. - Infectious Disease History:: Denies. - Social history:: Smoking status: Patient reports the use of cigarette tobacco products, smokes one-half pack cigarettes per day. ROS: 14:50 Constitutional: As per HPI kb Exam: 14:50 Constitutional: This is a well developed, well nourished patient who is awake, alert, kb and in no acute distress. Head/Face: Normocephalic, atraumatic. ENT: Moist Mucous membranes Cardiovascular: Regular rate Respiratory: Respirations even and unlabored. No increased work of breathing. Talking in full sentences Skin: Warm, dry with normal turgor. Normal color. Neuro: Awake and alert, GCS 15, oriented to person, place, time, and situation. 14:50 Musculoskeletal/extremity: Extremities: grossly normal except: noted in the left lateral ankle: pain, swelling, tenderness, ROM: limited active range of motion due to pain, Circulation is intact in all extremities. Sensation intact. Weight bearing: can bear weight with assistance only, Vital Signs: 14:50 BP 122 / 82; Pulse 89; Resp 20; Temp 97.8; Pulse Ox 95% on R/A; Weight 104.33 kg; iw Height 5 ft. 7 in. ; Pain 6/10; 14:50 Body Mass Index 36.02 (104.33 kg, 170.18 cm) iw 14:50 Pain Scale: Adult iw MDM: 14:43 Medical Screening Exam initiated kb 14:51 Differential diagnosis: dislocation, closed fracture, sprain. Data reviewed: vital kb signs, nurses notes. 16:22 Independent interpretation of the following test(s) in the Emergency Department X-Ray: kb My interpretation is no fracture or dislocation on ankle xray. Counseling: I had a detailed discussion with the patient and/or guardian regarding the historical points, exam findings, and any diagnostic results supporting the discharge/admit diagnosis, radiology results, the need for outpatient follow up, a orthopedic surgeon, to return to the emergency department if symptoms worsen or persist or if there are any questions or concerns that arise at home. 05/13 14:47 Order name: Ankle Left 3 View XRAY; Complete Time: 16:22 kb 05/13 16:23 Order name: Aircast Ankle Splint; Complete Time: 17:12 kb 05/13 16:23 Order name: Crutches; Complete Time: 17:12 kb Administered Medications: 15:10 Drug: Ibuprofen PO 600 mg PO once Route: PO; iw 16:07 Follow up: Response: No adverse reaction af3 15:10 Drug: HYDROcodone-acetaminophen PO 5 mg-325 mg 1 tabs PO once Route: PO; iw 16:07 Follow up: Response: No adverse reaction af3 Disposition: 16:50 I was immediately available on-site in the Emergency Department for consultation in the ms3 care of the patient. Disposition Summary: 05/13/25 16:23 Discharge Ordered Notes: Location: Home kb Condition: Stable kb Diagnosis - Sprain of ankle kb Followup: kb - With: Emergency Department - When: As needed - Reason: Worsening of condition Followup: kb - With: Private Physician - When: 2 - 3 days - Reason: Recheck today's complaints, Continuance of care, Re-evaluation by your physician Discharge Instructions: - Discharge Summary Sheet kb - RICE Therapy for Routine Care of Injuries, [id number] kb - Ankle Sprain, [id number] kb Forms: - Medication Reconciliation Form kb - Antibiotic Education kb - Prescription Opioid Use kb - Patient Portal Instructions kb - Leadership Thank You Letter kb Prescriptions: - Diclofenac Sodium 75 mg Oral tablet, delayed release (enteric coated) - take 1 tablet ORAL route 2 times per day As needed; 30 tablet; Refills: 0, kb Product Selection Permitted Signatures: Dispatcher [employer] Kacey Anaya, ASSISTANT FLOOR COVERING PRINTER-C ASSISTANT FLOOR COVERING PRINTER-Ckb Wendi Espana, RN RN iw Nitin Ludwig DO DO ms3 Meena Calloway RN af3
[2025-05-13 17:50] VITALS: BP 122/82; TEMP 97.8; O2SAT 95
== END 2025-05-13 17:13 | disposition home or self-care (01) ==
LOC: ER 14:38
DX: S93.402A Sprain of unspecified ligament of left ankle, initial encounter (principal); X58.XXXA Exposure to other specified factors, initial encounter; F17.210 Nicotine dependence, cigarettes, uncomplicated
CPT/HCPCS: 99283